=== PATIENT | female | born 1945 | race Caucasian/White ===

== ENCOUNTER → 2018-05-24 13:52 | Outpatient (CLI) | payer MEDICARE, OTHER, SELFPAY ==
--- NOTE | 2018-05-24 14:03 | CDU_ITS ---
Reason For Study: CAROTID ENDART. Rt. Velocities/BP Lt. Velocities/BP Prox CCA 79/12 cm/sec. Prox CCA 95/17 cm/sec. Mid CCA 71/13 cm/sec. Mid CCA 69/15 cm/sec. Dist CCA 58/15 cm/sec. Dist CCA 62/14 cm/sec. Prox ICA 35/12 cm/sec. Prox ICA 99/26 cm/sec. Mid ICA 46/17 cm/sec. Mid ICA 88/24 cm/sec. Dist ICA 67/21 cm/sec. Dist ICA 85/24 cm/sec. Rt. ICA/CCA = .9. Lt. ICA/CCA = 1.0. Prox ECA 81/10 cm/sec. Prox ECA 99/9 cm/sec. Rt. Vert. 20/8 cm/sec. Lt. Vert. 80/20 cm/sec. Right Extracranial There is intimal thickening but no significant atherosclerotic plaque noted in the right common carotid artery. There is intimal thickening but no significant atherosclerotic plaque noted in the right internal carotid artery. There is homogeneous, smooth atherosclerotic plaque noted in the right external carotid artery. Antegrade flow is noted in the right vertebral artery. Left Extracranial There is intimal thickening but no significant atherosclerotic plaque noted in the left common carotid artery. There is heterogeneous, irregular atherosclerotic plaque noted in the left internal carotid artery. There is homogeneous, smooth atherosclerotic plaque noted in the left external carotid artery. Antegrade flow is noted in the left vertebral artery. There is heterogeneous, irregular atherosclerotic plaque noted in the left bulb. Procedure Carotid Duplex 48616. Exam performed in department. Interpretation Summary There is <50% stenosis in the bilateral extracranial internal carotid arteries based on velocity criteria. There is antegrade flow in bilateral vertebral arteries. Ordering Physician: Mateo Hayes Referring Physician: LILLY AGUILAR Performed By: Tammy Mcintyre, ANTOINETTECS, RVT
== END ==
PROVIDERS: Family Provider Internal Medicine; PCP Internal Medicine; Referring Provider Surgery; Visit Provider Surgery
DX: I65.23 Occlusion and stenosis of bilateral carotid arteries (principal); Z98.890 Other specified postprocedural states
CPT/HCPCS: 93880

== ENCOUNTER → 2018-12-11 10:34 | Outpatient (CLI) | payer MEDICARE, OTHER, SELFPAY ==
[2018-12-11 10:25] VITALS: BMI 31.3
--- NOTE | 2018-12-11 10:36 | RAD_ITS ---
STUDY: X-RAY - RIGHT ELBOW REASON FOR EXAM: Female, 72 years old. Pain following injury. TECHNIQUE: 3 view(s) of the elbow. COMPARISON: None. FINDINGS: Normal visualized humerus, radius and ulna. Normal radiocapitellar and ulnotrochlear articulations. The soft tissue structures are unremarkable. RAD/Elbow min 3 Views IMPRESSION: Normal x-ray examination of the elbow. Electronically Signed: Marvel Johnson, at 11:12 EDT , Service support ,
== END ==
PROVIDERS: Family Provider Internal Medicine; PCP Internal Medicine; Referring Provider Physician Assistant; Visit Provider Physician Assistant
DX: S59.901A Unspecified injury of right elbow, initial encounter (principal)
CPT/HCPCS: 73080

== ENCOUNTER → 2019-10-06 10:46 | Outpatient (CLI) | payer MEDICARE, OTHER, SELFPAY ==
[2019-10-06 10:05] VITALS: BMI 31.3
[2019-10-06 12:43] LABS: T4 Free Direct 1.18 ng/dL (0.76-1.46); Thyroid Stim Hormone (TSH) 1.78 uIU/mL (0.358-3.74)
== END ==
PROVIDERS: PCP Internal Medicine; Visit Provider Internal Medicine Endocrinology, Diabetes & Metabolism
DX: E06.3 Autoimmune thyroiditis (principal)
CPT/HCPCS: 36415; 84439; 84443

== ENCOUNTER 2020-04-15 10:29 | Outpatient (RCR) | payer MEDICARE, OTHER, SELFPAY ==
[2019-10-06 10:05] VITALS: BMI 31.3
[2020-04-15] MEDS: COVID-19 VACC, MRNA(PFIZER)/PF 30 MCG/0.3 ML SYRINGE IM (13:10)
[2020-05-06] MEDS: COVID-19 VACC, MRNA(PFIZER)/PF 30 MCG/0.3 ML SYRINGE IM (12:57)
== END 2020-04-15 23:59 ==
LOC: IMMUN 10:29
PROVIDERS: PCP Internal Medicine; Visit Provider Family Medicine
DX: Z23 Encounter for immunization (principal)
CPT/HCPCS: 0001A; 0002A; 91300

== ENCOUNTER 2021-04-14 12:32 | Outpatient (CLI) | payer MEDICARE, OTHER, SELFPAY ==
--- NOTE | 2021-04-14 12:36 | CDU_ITS ---
Reason For Study: Hx carotid endart, stenosis Rt. Velocities/BP Lt. Velocities/BP Prox CCA 81.2/14.7 cm/sec. Prox CCA 84.6/18.3 cm/sec. Mid CCA 57.8/17.3 cm/sec. Mid CCA 58.8/14.6 cm/sec. Dist CCA 73.4/17.3 cm/sec. Dist CCA 65.0/15.8 cm/sec. Prox ICA 49.9/10.8 cm/sec. Prox ICA 118.5/30.9 cm/sec. Mid ICA 48.6/13.4 cm/sec. Mid ICA 107.6/21.7 cm/sec. Dist ICA 82.5/27.8 cm/sec. Dist ICA 79.7/19.5 cm/sec. Rt. ICA/CCA = 1.4. Lt. ICA/CCA = 2.0. Prox ECA 73.4/9.5 cm/sec. Prox ECA 72.3/12.2 cm/sec. Rt. Vert. 17.2/6.8 cm/sec. Lt. Vert. 82.1/23.2. cm/sec. Right Extracranial There is homogeneous, smooth atherosclerotic plaque noted in the right common carotid artery. There is heterogeneous, irregular atherosclerotic plaque noted in the right internal carotid artery. There is intimal thickening but no significant atherosclerotic plaque noted in the right external carotid artery. Bidirectional flow noted in the right vertebral artery. Left Extracranial There is homogeneous, smooth atherosclerotic plaque noted in the left common carotid artery. There is heterogeneous, irregular atherosclerotic plaque noted in the left internal carotid artery. There is intimal thickening but no significant atherosclerotic plaque noted in the left external carotid artery. Antegrade flow is noted in the left vertebral artery. There is heterogeneous, irregular atherosclerotic plaque noted in the left bulb. Procedure Carotid Duplex 37826. This is a Carotid Duplex examination using B-mode, color flow and specral Doppler. The exam was diagnostic. Exam performed in department. VL/Carotid Duplex Ultrasound Interpretation Summary Postoperative changes of the right carotid bulb and proximal internal carotid a rtery with minimal plaque noted and less than 50% stenosis Less than 50% stenosis right external carotid artery Irregular calcific plaque with shadowing at the proximal left internal carotid artery with less than 50% stenosis Less than 50% stenosis left external carotid artery Patent and antegrade vertebral arteries bilaterally with diminished flow on the right Findings are similar to the previous examination of May 24, 2018 Ordering Physician: Mateo Hayes Performed By: Luc Ortiz RVT
== END 2021-04-14 23:59 | disposition home or self-care (01) ==
LOC: CVS 12:35
PROVIDERS: PCP Internal Medicine; Referring Provider Surgery; Visit Provider Surgery
DX: I65.21 Occlusion and stenosis of right carotid artery (principal); Z98.890 Other specified postprocedural states
CPT/HCPCS: 93880

== ENCOUNTER 2021-05-20 05:20 | Day surgery (SDC) | payer MEDICARE, OTHER, SELFPAY ==
--- NOTE | 2021-05-20 05:30 | HP.PCM_ITS ---
History and Physical Date of Admission: 05/20/21 Registered Nurse Behavioral Health Required: No Is patient in pain?: No Allergies amoxicillin [Amoxicillin] Allergy (Verified 04/26/21 15:01) Rash adhesive Adverse Reaction (Verified 04/26/21 15:01) Swelling simvastatin Adverse Reaction (Verified 04/26/21 15:) Pain in joints Medications aspirin 81 mg tablet,delayed release 81 mg PO DAILY 06/03/18 [History Confirmed 04/26/21] coenzyme Q10 75 mg capsule 75 mg PO DAILY 06/03/18 [History Confirmed 04/26/21] omega-3 fatty acids 1,000 mg capsule 1,000 mg PO DAILY 06/03/18 [History Confirmed 04/26/21] cholecalciferol (vitamin D3) 25 mcg (1,000 unit) capsule 1,000 unit PO DAILY 12/11/18 [History Confirmed 04/26/21] docusate sodium 50 mg capsule 50 mg PO DAILY 12/11/18 [History Confirmed 04/26/21] guaifenesin 1,200 mg tablet, extended release 12 hr 1,200 mg PO BID 12/11/18 [History Confirmed 04/26/21] PFSH Medical History Carotid artery stenosis History of carotid artery stenosis Hyperlipidemia Surgical History History of laparoscopic cholecystectomy History of right-sided carotid endarterectomy (~10/31/10) History of right-sided carotid endarterectomy History of tonsillectomy Family History Uncle Colon cancer Mother Diabetes Hypertension High cholesterol CVA (cerebral vascular accident) Thyroid disorder Other Myocardial infarction Social History Smoking Status: Never smoker alcohol intake: never substance use type: does not use HPI HPI HPI: LESA HILLS, is a 75 F who presents to the office today for surgical follow-up of a right carotid endarterectomy. On April 14, 2021 the patient had a carotid duplex exam. Postoperative changes of the right carotid noted with some intimal thickening but less than 50% stenosis of the right internal carotid and less than 50% stenosis of the right external carotid. The left internal carotid had a mild amount of heterogenous plaque but peak systolic velocity at 118 cm second peak static flow less than 50% stenosis. There is less than 50% stenosis of the left external carotid. Bilateral vertebrals are patent and antegrade bilaterally though diminished flow was noted on the right. This examination lazaro ear to be unchanged from the previous examination of May 24, 2018 Patient is age 75. She had a right carotid endarterectomy done approximately 2010. She has had lipid problems but she saw Dr. Duane He and she was initiated on Zetia and then Dr. Stock added once weekly Crestor. Her cholesterol levels have improved to 163. She states she cannot quite remember when she had her last colonoscopy but she has a family history with an uncle with colon cancer and a niece with rectal cancer. Fortunately she is not currently had any symptoms. She otherwise feels well. She herself has not had COVID-19 but it sounds like her had quite the ordeal February 2020 and only now is recovering from the Covid and heart valve surgery. Exam Const General: cooperative, healthy appearing, comfortable and no acute distress Nutritional Appearance: overweight HENMT Head: normal to inspection Eyes General: appearance normal, both eyes and all related structures Chest Other: Increased anterior posterior diameter Resp Effort & Inspection: normal respiratory effort Auscultation: clear to auscultation bilaterally Cardio Rate: regular rate Rhythm: regular rhythm Other: Well-healed surgical incision right neck: 2+ bilateral carotid pulses. Soft 1/6 right carotid bruit. GI Palpation: soft and no hepatosplenomegaly Musc Cervical Spine: normal cervical lordosis Neuro General: patient alert and patient awake Extrem General: no calf tenderness Psych Appearance: grossly normal Assessment and Plan Assessment and Plan (1) Carotid artery stenosis: Status: Acute Qualifiers: Laterality: right Qualified Code(s): I65.21 - Occlusion and stenosis of right carotid artery Plan - Dr. Mateo Hayes MD: 75-year-old female appears to have very good longevity status post a right carotid endarterectomy performed per myself approximately 2010. She is currently getting better results of her lipid management and is very pleased and excited about her results. She also in the past ceased her tobacco use which has facilitated her management. I would recommend follow-up carotid duplex imaging at 3 years. She has no clinically significant bilateral extracranial carotid artery occlusive disease at this time. Conservative follow-up particularly however regarding her [place] left carotid that has not been treated would be pertinent. The patient inquires as to whether she is due for screening colonoscopy. She is aware of the technique, benefit, risk, alternatives. We will try to investigate when she had a previous one and then make recommendations as appropriate. She is aware of the technique, benefit, risk, alternatives and we will proceed as noted. I appreciate the ongoing opportunity of assisting with her surgical care Copy: Dr. Fide Hayes M.D., F.A.C.S. Patient presents for screening colonoscopy today. She is aware of the technique, benefit, risk and alternatives. We will proceed as noted. Mateo Hayes M.D., F.A.C.S.
[2021-05-20 06:04] VITALS: BP 158/80; PULSE 77; RESP 16; TEMP 36.8; O2SAT 99; BMI 31.8
--- NOTE | 2021-05-20 06:30 | COLBX_PTH ---
PATIENT: LESA HILLS LOC: EN U#:[id number] AGE/SX: 75/F ROOM: RE05/20/[address]: Dr. Mateo Hayes MD : 1945 BED: DIS: 05/20/2021 SPEC #: [id number] RECD: 05/20/21 13:27 STATUS: GARCÍA SERENA #: [id number] CECELIA: 05/20/21 06:[address]: Mateo Hayes DEPT: SURGICAL PATHOLOGY RECD BY: Ayala Singh ENTERED: 05/23/21 09:36 SP TYPE: COLON BX OT DR: Dr. Fide Stock MD Tissues: A - Transverse colon B - Sigmoid colon biopsy Procedures: Surgery Specimen Level IV HEADER OPERATION: Colonoscopy (MAC) PRE-OP DIAGNOSIS: Screening colonoscopy TISSUE SUBMITTED: A ? Mid transverse colon biopsy, B ? Proximal sigmoid polyp biopsy MICROSCOPIC DIAGNOSIS A. Mid transverse colon, biopsy: Hyperplastic polyp. B. Proximal sigmoid colon polyp, biopsy: Hyperplastic polyp. AM:gil 05/24/2021 MICROSCOPIC DESCRIPTION Slides are reviewed. GROSS DESCRIPTION A - Received in fixative is one container labeled with the patient's name and designated mid transverse colon biopsy. The specimen consists of multiple irregular fragments of light hess soft tissue that in aggregate measure 1.5 x 1 x 0.1 cm. The specimen is totally submitted in one cassette. B - Received in fixative is one container labeled with the patient's name and designated sigmoid polyp biopsy. The specimen consists of two irregular fragments of light hess soft tissue that in aggregate measure 0.6 x 0.5 x 0.1 cm. The specimen is totally submitted in one cassette. / AM:gil 05/23/2021 TC:5 CPT: 46325 x2
[2021-05-20 07:15] VITALS: BP 107/62; BP 158/80; PULSE 61; RESP 16; TEMP 36.1; O2SAT 96
--- NOTE | 2021-05-20 07:16 | OP.COLON_ITS ---
Patient Name: Katie Dugan Procedure Date: 05/20/2021 6:24 AM Date of : 1945 Age: 75 Procedure: Colonoscopy Indications: Screening for colorectal malignant neoplasm Providers: Mateo Hayes MD Referring MD: Fide Stock Medicines: See the Anesthesia note for documentation of the administered medications Patient Profile: Last Colonoscopy: date unknown. Complications: No immediate complications. Procedure: Pre-Anesthesia Assessment: - Prior to the procedure, a History and Physical was performed, and patient medications and allergies were reviewed. The patient's tolerance of previous anesthesia was also reviewed. The risks and benefits of the procedure and the sedation options and risks were discussed with the patient. All questions were answered, and informed consent was obtained. Prior Anticoagulants: The patient has taken no previous anticoagulant or antiplatelet agents. ASA Grade Assessment: II - A patient with mild systemic disease. After reviewing the risks and benefits, the patient was deemed in satisfactory condition to undergo the procedure. After I obtained informed consent, the scope was passed under direct vision. Throughout the procedure, the patient's blood pressure, pulse, and oxygen saturations were monitored continuously. The Colonoscope was introduced through the anus and advanced to the cecum, identified by appendiceal orifice and ileocecal valve. The colonoscopy was unusually difficult due to a redundant colon. Successful completion of the procedure was aided by changing the patient to a supine position and applying abdominal pressure. The patient tolerated the procedure well. The quality of the bowel preparation was fair. The ileocecal valve and the appendiceal orifice were photographed. Scope In: 6:35:34 AM Scope Withdrawal Time 0 hours 17 minutes 22 seconds Scope Out: 7:10:48 AM Total Procedure Duration Time 0 hours 35 minutes 14 seconds Findings: Hemorrhoids were found on perianal exam. A 7 mm polyp was found in the mid transverse colon. The polyp was sessile. The polyp was removed with a cold snare. Resection and retrieval were complete. To prevent bleeding post-intervention, one hemostatic clip was successfully placed. There was no bleeding at the end of the procedure. A 5 mm polyp was found in the proximal sigmoid colon. The polyp was sessile. The polyp was removed with a cold biopsy forceps. Resection and retrieval were complete. Multiple diverticula were found in the sigmoid colon and descending colon. Impression: - Preparation of the colon was fair. - Hemorrhoids found on perianal exam. - One 7 mm polyp in the mid transverse colon, removed with a cold snare. Resected and retrieved. Clip was placed. - One 5 mm polyp in the proximal sigmoid colon, removed with a cold biopsy forceps. Resected and retrieved. - Diverticulosis in the sigmoid colon and in the descending colon. Ileocecal valve lipoma Recommendation: - Discharge patient to home. - Resume previous diet. - Continue present medications. - Repeat colonoscopy in 5 years for surveillance. - Telephone my office for pathology results in 1 week. Procedure Code(s): --- Professional --- 91307, Colonoscopy, flexible; with removal of tumor(s), polyp(s), or other lesion(s) by snare technique 66195, 59, Colonoscopy, flexible; with biopsy, single or multiple Diagnosis Code(s): --- Professional --- Z12.11, Encounter for screening for malignant neoplasm of colon K64.9, Unspecified hemorrhoids D12.3, Benign neoplasm of transverse colon (hepatic flexure or splenic flexure) D12.5, Benign neoplasm of sigmoid colon K57.30, Diverticulosis of large intestine without perforation or abscess without bleeding CPT copyright 2017 [employer]. All rights reserved. The codes documented in this report are preliminary and upon blending tank tender helper review may be revised to meet current compliance requirements. Mateo Hayes MD 05/20/2021 7:15:29 AM This report has been signed electronically. Number of Addenda: 0 Note Initiated On: 05/20/2021 6:24 AM
--- NOTE | 2021-05-20 07:16 | OP.CCLET_ITS ---
05/20/2021 Fide Stock [id number] [place] [address] Re : Colonoscopy procedure for Katie Dugan Dear Dr. Stock This procedure was performed on Thursday, May 20, 2021. My impressions and recommendations are as follows: Impressions : - Preparation of the colon was fair. - Hemorrhoids found on perianal exam. - One 7 mm polyp in the mid transverse colon, removed with a cold snare. Resected and retrieved. Clip was placed. - One 5 mm polyp in the proximal sigmoid colon, removed with a cold biopsy forceps. Resected and retrieved. - Diverticulosis in the sigmoid colon and in the descending colon. Ileocecal valve lipoma Recommendations : - Discharge patient to home. - Resume previous diet. - Continue present medications. - Repeat colonoscopy in 5 years for surveillance. - Telephone my office for pathology results in 1 week. My findings are described in the full procedure note, which is enclosed. If I can be of further assistance, please feel free to contact me at Doctor phone number(s): Work: . Sincerely, Mateo Hayes MD 05/20/2021 7:15:29 AM This report has been signed electronically.
[2021-05-20 07:20] VITALS: BP 109/54; BP 158/80; PULSE 59; RESP 15; O2SAT 95
[2021-05-20 07:25] VITALS: BP 120/56; BP 158/80; PULSE 61; RESP 16; O2SAT 96
[2021-05-20 07:30] VITALS: BP 130/64; BP 158/80; PULSE 60; RESP 16; TEMP 36; O2SAT 98
[2021-05-20 07:48] VITALS: BP 158/80
== END 2021-05-20 23:59 | disposition home or self-care (01) ==
LOC: EN 05:20 → AC 05:20
PROVIDERS: PCP Internal Medicine; Referring Provider Internal Medicine; Visit Provider Surgery
PROC: 0DJD8ZZ Inspection of Lower Intestinal Tract, Via Natural or Artificial Opening Endoscopic (ICD-10-PCS; CPT 45378; principal; 2021-05-20 06:25)
DX: Z12.11 Encounter for screening for malignant neoplasm of colon (principal); K63.5 Polyp of colon; K64.8 Other hemorrhoids; K57.30 Diverticulosis of large intestine without perforation or abscess without bleeding; E78.5 Hyperlipidemia, unspecified; I65.21 Occlusion and stenosis of right carotid artery; Z79.899 Other long term (current) drug therapy; Z87.891 Personal history of nicotine dependence; Z80.0 Family history of malignant neoplasm of digestive organs; Z79.82 Long term (current) use of aspirin
CPT/HCPCS: 45385; 45380; 88305; J7120; J2405

== ENCOUNTER → 2021-08-19 | Outpatient (CLI) | payer MEDICARE, OTHER, SELFPAY ==
[2021-08-19 16:33] LABS: Absolute Lymphocyte Count 2.42 X10^3/uL (0.83-4.51); Absolute Neutrophil Count 3.5 X10^3/uL (2.0-7.7); Basophil# 0.07 X10^3/uL; Basophil% 1.1 % (0-1); Eosinophil# 0.18 X10^3/uL; Eosinophils% 2.7 % (0-5); Hematocrit 41.3 % (37-47); Hemoglobin 13.8 g/dL (12.0-15.0); Lymphocyte # 2.42 X10^3/ul (0.83-4.51); Lymphocyte % 36.7 % (19-41); Mean Corp Hgb Conc 33.4 g/dL (32-36); Mean Corpuscular Hgb 29.7 pg (27.0-32.0); Mean Corpuscular Volume 88.8 fL (81-99); Mean Platelet Vol. 10.1 fl (6.2-12.0); Monocyte# 0.45 X10^3/uL; Monocyte% 6.8 % (0-10); NRBC Flagged by Analyzer 0 % (0-5); Neutrophil # 3.46 X10^3/uL (2.7-7.7); Neutrophil % 52.5 % (47-70); Platelet Count 226 K/mm3 (150-450); RBC Distribution Width CV 12.2 % (11.6-14.6); RBC Distribution Width SD 39.3 fl (35.1-43.9); Red Blood Count 4.65 M/mm3 (4.2-5.4); White Blood Count 6.6 K/mm3 (4.4-11.0)
[2021-08-19 16:49] LABS: ALB/GLOB Ratio 1.2 RATIO (0.9-2.4); AST(SGOT) 23 U/L (15-37); Alanine Aminotransfer ALT/SGPT 33 U/L (13-56); Albumin, Serum 4.1 g/dL (3.2-5.0); Alkaline Phosphatase 68 U/L (45-117); Anion Gap 3 (5-15); BUN 17 mg/dL (7-18); BUN/Creat Ratio 20.9 RATIO (10-20); Calcium,Total 9.8 mg/dL (8.5-10.1); Chloride 107 mmol/L (98-107); Creatinine, Serum 0.81 mg/dL (0.55-1.02); EST Glomerular Filtration Rate 73 mL/min (>60); Est Glom Filt Rate - Afr Amer 88 mL/min (>60); Globulin 3.4 g/dL (2.2-4.2); Glucose 95 mg/dL (74-106); Potassium 4.1 mmol/L (3.5-5.1); Protein, Total 7.5 g/dL (6.4-8.2); Sodium Level 140 mmol/L (136-145)
== END | disposition home or self-care (01) ==
LOC: BIMLAB 15:45
PROVIDERS: PCP Internal Medicine; Referring Provider Internal Medicine; Visit Provider Internal Medicine
DX: E78.2 Mixed hyperlipidemia (principal)
CPT/HCPCS: 36415; 80053; 85025

== ENCOUNTER → 2021-09-06 | Outpatient (CLI) | payer MEDICARE, OTHER, SELFPAY ==
--- NOTE | 2021-09-06 13:17 | BD_ITS ---
STUDY: DUAL ENERGY X-RAY ABSORPTIOMETRY / DXA REASON FOR EXAM: Female, 75 years old. Post menopausal TECHNIQUE: Bone Mineral Density (BMD) measurements of lumbar spine and bilateral hips were obtained. COMPARISON: None. FINDINGS: Lumbar Spine (L1-L4): g/cm2 (0.862) / T-score (-1.4) / Z-score (1.0) Findings are suggestive of osteopenia with a low fracture risk. Left Femur Total: g/cm2 (0.906) / T-score (-0.3) / Z-score (1.6) Left Femoral Neck: g/cm2 (0.676) / T-score (-1.6) / Z-score (0.6) Right Femur Total: g/cm2 (0.934) / T-score (-0.1) / Z-score (1.8) Right Femoral Neck: g/cm2 (0.758) / T-score (-0.8) / Z-score (1.3) BD/Dexa Bone Density Study IMPRESSION: The patient is considered osteopenic as outlined below according to World [employer] Organization (WHO) criteria with a moderate fracture risk. Reference Information: The T-score is the number of standard deviations above or below the standard which is normal for young adults at their peak bone mineral density. The World Health Organization (WHO) interprets the T-scores as follows: Above -1 Normal bone density Between -1 and -2.5 Osteopenia Equal to / or below -2.5 Osteoporosis As a practical clinical guideline, osteopenia may be graded as follows: Mild -1 through -1.5 Moderate -1.6 through -2.0 Severe -2.1 through -2.4 The Z-score is the number of standard deviations above or below age-matched controls. A Z-score of less than -1.5 would be considered abnormal. References: 1. NIH Osteoporosis and Related Bone Diseases www osteo.org 2. International Society for Clinical Densitometry www iscd.org 3. National Osteoporosis Foundation www nof.org Electronically Signed: Marvel Johnson MD at 9:41 EDT ,
== END | disposition home or self-care (01) ==
LOC: OPBD 13:12
PROVIDERS: PCP Internal Medicine; Referring Provider Internal Medicine; Visit Provider Internal Medicine
DX: Z78.0 Asymptomatic menopausal state (principal)
CPT/HCPCS: 77080

== ENCOUNTER → 2022-03-09 | Outpatient (CLI) | payer MEDICARE, OTHER, SELFPAY ==
[2022-03-09 10:59] LABS: Bacteria 0 SEEN /hpf (None Seen); Mucous, Urine 0 SEEN /hpf (<or=2+); Red Blood Cells-Urine 0 SEEN /hpf (0-5); Squamous Epithelial Cells - UA 0 SEEN /hpf (5-10); White Blood Cells 0 SEEN /hpf (0-5)
[2022-03-09 12:23] LABS: Absolute Lymphocyte Count 2.03 X10^3/uL (0.83-4.51); Absolute Neutrophil Count 3.5 X10^3/uL (2.0-7.7); Basophil# 0.07 X10^3/uL; Basophil% 1.2 % (0-1); Hemoglobin 14.4 g/dL (12.0-15.0); Lymphocyte # 2.03 X10^3/ul (0.83-4.51); Lymphocyte % 33.7 % (19-41); Mean Corp Hgb Conc 34.3 g/dL (32-36); Mean Corpuscular Hgb 29.6 pg (27.0-32.0); Mean Corpuscular Volume 86.2 fL (81-99); Monocyte# 0.41 X10^3/uL; Monocyte% 6.8 % (0-10); NRBC Flagged by Analyzer 0 % (0-5); Neutrophil % 58.1 % (47-70); Platelet Count 244 K/mm3 (150-450); RBC Distribution Width CV 12.2 % (11.6-14.6); RBC Distribution Width SD 38.4 fl (35.1-43.9); Red Blood Count 4.87 M/mm3 (4.2-5.4)
[2022-03-09 12:31] LABS: Color, Urine Yellow (Yellow); Glucose, Dipstick Normal (Normal); Ketone-Dipstick Negative (Negative); Leukocyte Esterase-Dipstick Negative /ul (Negative); Nitrite-Dipstick Negative (Negative); Occult Blood-Urine Negative /ul (Negative); Protein-Dipstick Negative (Negative); Specific Gravity, Urine 1.005 (1.002-1.030); Urine Bilirubin Dipstick Negative (Negative); Urine Clarity Clear (Clear); Urine Urobilinogen Normal (Normal)
[2022-03-09 13:34] LABS: ALB/GLOB Ratio 1.1 RATIO (0.9-2.4); AST(SGOT) 27 U/L (15-37); Alanine Aminotransfer ALT/SGPT 44 U/L (13-56); Alkaline Phosphatase 63 U/L (45-117); Anion Gap 9 (5-15); BUN 15 mg/dL (7-18); Calcium,Total 9.7 mg/dL (8.5-10.1); Chloride 107 mmol/L (98-107); Creatinine, Serum 0.83 mg/dL (0.55-1.02); EST Glomerular Filtration Rate 71 mL/min (>60); Est Glom Filt Rate - Afr Amer 85 mL/min (>60); Globulin 3.8 g/dL (2.2-4.2); Glucose 112 mg/dL (74-106); Protein, Total 7.8 g/dL (6.4-8.2); Sodium Level 141 mmol/L (136-145)
== END | disposition home or self-care (01) ==
LOC: BIMLAB 10:58
PROVIDERS: PCP Internal Medicine; Referring Provider Physician Assistant; Visit Provider Physician Assistant
DX: R39.9 Unspecified symptoms and signs involving the genitourinary system (principal); R10.31 Right lower quadrant pain
CPT/HCPCS: 36415; 80053; 81001; 85025; 87086; 87088

== ENCOUNTER → 2022-03-15 | Outpatient (CLI) | payer MEDICARE, OTHER, SELFPAY ==
--- NOTE | 2022-03-15 13:41 | CT_ITS ---
STUDY: CT ABDOMEN AND PELVIS WITH CONTRAST REASON FOR EXAM: Female, 76 years old. 3 week history of right-sided abdominal pain and flank pain. RADIATION DOSAGE (If Supplied By Facility): CTDIvol = ( 15.90 ) mGy, DLP = ( 997.07 ) mGycm TECHNIQUE: Transaxial images were obtained from the dome of the diaphragm to the symphysis pubis without oral contrast. IV 100mL Isovue-300 was administered. Sagittal and coronal images were reconstructed. Individualized dose optimization techniques were used for this CT. COMPARISON: None. FINDINGS: The visualized lung bases are unremarkable. The visualized portions of the heart are within normal limits. Mild degree of central intrahepatic biliary dilatation most likely secondary to the postcholecystectomy state. There are surgical clips in the gallbladder fossa consistent with a prior cholecystectomy. There is no dilatation of the common bile duct measuring 11.3 mm. No calculus is seen within it. Normal spleen. Normal pancreas. Normal bilateral adrenal glands. There is a 1.3 cm cyst in the lateral aspect of the right kidney. Normal left kidney. There is a small hiatal hernia. Normal small intestine. Normal colon. The appendix is visualized and appears normal. There is diffuse atherosclerotic calcification of the abdominal aorta, without a demonstrated aneurysm. Normal inferior vena cava. Normal retroperitoneum. Normal urinary bladder. There is thickening of the endometrium measuring 1.1 cm. This is abnormal for the post menopausal state. Normal abdominal wall. Normal osseous structures. CT/Abdomen/Pelvis W IV Cont ONLY IMPRESSION: Status post cholecystectomy. Mildly dilated intrahepatic biliary ducts and common bile duct. Electronically Signed: Marvel Johnson MD at 15:14 EST ,
== END | disposition home or self-care (01) ==
PROVIDERS: PCP Internal Medicine; Referring Provider Physician Assistant; Visit Provider Physician Assistant
DX: R10.31 Right lower quadrant pain (principal); Z90.49 Acquired absence of other specified parts of digestive tract
CPT/HCPCS: 74177; Q9967

== ENCOUNTER → 2022-08-23 | Outpatient (CLI) | payer MEDICARE, OTHER, SELFPAY ==
[2022-08-23 09:21] LABS: Bacteria 0 SEEN /hpf (None Seen); Mucous, Urine 0 SEEN /hpf (<or=2+); Red Blood Cells-Urine 0 SEEN /hpf (0-5)
[2022-08-23 12:24] LABS: Absolute Neutrophil Count 2.4 X10^3/uL (2.0-7.7); Basophil# 0.08 X10^3/uL; Basophil% 1.5 % (0-1); Eosinophil# 0.09 X10^3/uL; Eosinophils% 1.7 % (0-5); Hemoglobin 13.8 g/dL (12.0-15.0); Lymphocyte % 42.3 % (19-41); Mean Corp Hgb Conc 33.7 g/dL (32-36); Mean Corpuscular Hgb 30.1 pg (27.0-32.0); Mean Corpuscular Volume 89.3 fL (81-99); Mean Platelet Vol. 10.3 fl (6.2-12.0); Monocyte# 0.47 X10^3/uL; NRBC Flagged by Analyzer 0 % (0-5); Neutrophil # 2.35 X10^3/uL (2.7-7.7); Neutrophil % 45.3 % (47-70); Platelet Count 230 K/mm3 (150-450); RBC Distribution Width CV 12.5 % (11.6-14.6); RBC Distribution Width SD 40.9 fl (35.1-43.9); Red Blood Count 4.59 M/mm3 (4.2-5.4); White Blood Count 5.2 K/mm3 (4.4-11.0)
[2022-08-23 12:34] LABS: Color, Urine Yellow (Yellow); Glucose, Dipstick Normal (Normal); Ketone-Dipstick Negative (Negative); Leukocyte Esterase-Dipstick 100 /ul (Negative); Nitrite-Dipstick Negative (Negative); Occult Blood-Urine Negative /ul (Negative); Protein-Dipstick Negative (Negative); Urine Bilirubin Dipstick Negative (Negative); Urine Clarity Sl. Cloudy (Clear); Urine Urobilinogen Normal (Normal)
[2022-08-23 12:36] LABS: AST(SGOT) 28 U/L (15-37); Alanine Aminotransfer ALT/SGPT 35 U/L (13-56); Albumin, Serum 3.9 g/dL (3.2-5.0); Alkaline Phosphatase 68 U/L (45-117); Anion Gap 5 (5-15); BUN 12 mg/dL (7-18); BUN/Creat Ratio 13.7 RATIO (10-20); Calcium,Total 9.7 mg/dL (8.5-10.1); Chloride 104 mmol/L (98-107); Cholesterol 183 mg/dL (200); Creatinine, Serum 0.88 mg/dL (0.55-1.02); EST Glomerular Filtration Rate 66 mL/min (>60); Est Glom Filt Rate - Afr Amer 80 mL/min (>60); Globulin 3.8 g/dL (2.2-4.2); Glucose 95 mg/dL (74-106); High Density Lipoprotein 58 mg/dL; Potassium 3.7 mmol/L (3.5-5.1); Protein, Total 7.7 g/dL (6.4-8.2); Sodium Level 137 mmol/L (136-145); Triglycerides 104 mg/dL; Very Low Density Lipoprotein 21 mg/dL (5-40)
[2022-08-23 12:40] LABS: Vitamin D,25 Hydroxy 36.4 ng/mL
[2022-08-23 12:52] LABS: Squamous Epithelial Cells - UA 0-5 SEEN /hpf (5-10); White Blood Cells 10-25 SEEN /hpf (0-5)
== END | disposition home or self-care (01) ==
PROVIDERS: PCP Internal Medicine; Visit Provider Internal Medicine
DX: R35.0 Frequency of micturition (principal); N32.81 Overactive bladder; M85.80 Other specified disorders of bone density and structure, unspecified site; E78.2 Mixed hyperlipidemia
CPT/HCPCS: 36415; 80053; 80061; 81001; 82306; 85025; 87077; 87086; 87088; 87186

== ENCOUNTER 2022-09-18 14:45 | Outpatient (CLI) | payer MEDICARE, OTHER, SELFPAY ==
[2022-09-18 14:47] LABS: Bacteria 0 SEEN /hpf (None Seen); Mucous, Urine 0 SEEN /hpf (<or=2+); Squamous Epithelial Cells - UA 0 SEEN /hpf (5-10); White Blood Cells 0 SEEN /hpf (0-5)
[2022-09-18 16:37] LABS: Color, Urine Yellow (Yellow); Glucose, Dipstick Normal (Normal); Ketone-Dipstick Negative (Negative); Leukocyte Esterase-Dipstick Negative /ul (Negative); Nitrite-Dipstick Negative (Negative); Occult Blood-Urine Negative /ul (Negative); Protein-Dipstick Negative (Negative); Urine Bilirubin Dipstick Negative (Negative); Urine Clarity Sl. Cloudy (Clear); Urine Urobilinogen Normal (Normal)
[2022-09-18 17:07] LABS: Red Blood Cells-Urine 0-5 SEEN /hpf (0-5)
== END 2022-09-18 23:59 | disposition home or self-care (01) ==
LOC: LABSPEC 14:46
PROVIDERS: PCP Internal Medicine; Referring Provider Internal Medicine; Visit Provider Internal Medicine
DX: R35.0 Frequency of micturition (principal)
CPT/HCPCS: 81001; 87086; 87088

== ENCOUNTER 2022-10-20 05:39 | Day surgery (SDC) | payer MEDICARE, OTHER, SELFPAY ==
--- NOTE | 2022-10-12 10:45 | EKG12_ITS ---
Test Reason : PRE OP Blood Pressure : / mmHG Vent. Rate : 059 BPM Atrial Rate : 059 BPM P-R Int : 162 ms QRS Dur : 082 ms QT Int : 394 ms P-R-T Axes : 055 011 028 degrees QTc Int : 390 ms Sinus bradycardia Otherwise normal ECG Confirmed by PEDRO JOSE, JONATHON ([id number]), order editor RODNEY BUSTILLO ([id number]) on 10/30/2022 2:08:27 PM Referred By: Susanne Black Confirmed By:LUCITA VASQUEZ MD
--- NOTE | 2022-10-20 | EMB_PTH ---
PATIENT: LESA HILLS [place] [facility] [place][id number] AGE/SX: 76/F ROOM: RE10/20/[address]: Dr. Susanne Black, MDDOB: 1945 BED: DIS: 10/20/2022 SPEC #: [id number] RECD: 10/20/22 12:53 STATUS: GARCÍA SERENA #: [id number] CECELIA: 10/20/22 00:[address]: Susanne Black DEPT: SURGICAL PATHOLOGY RECD BY: Donn Lyles ENTERED: 10/20/22 12:53 SP TYPE: ENDOM BX/C LUCY DR: Dr. Maryjane Wood MD Tissues: Endometrium, NOS Procedures: Surgery Specimen Level IV HEADER OPERATION: Hysteroscopy, D & C Symphion, polypectomy PRE-OP DIAGNOSIS: Thickened endometrium, endometrial polyps TISSUE SUBMITTED: Endometrial curettings and polyp MICROSCOPIC DIAGNOSIS Endometrial curettings and polyp, polypectomy: Consistent with fragments of benign endometrial polyp with simple cystic atrophy and focal simple cystic hyperplasia without atypia. ALE:gil 10/23/2022 MICROSCOPIC DESCRIPTION Slides are reviewed. GROSS DESCRIPTION Received in fixative is one container labeled with the patient's name and designated endometrial curettings and polyp. The specimen consists of multiple irregular fragments of hess, indurated tissue that in aggregate measure 5.0 x 3.0 x 0.6 cm. The specimen is totally submitted in two cassettes. / Vitaliy 10/20/2022 TC:3 CPT: 03772
[2022-10-20 06:14] VITALS: BP 146/82; PULSE 58; RESP 16; TEMP 36.7; O2SAT 99; BMI 29.0
[2022-10-20] MEDS: Lactated Ringers 1,000 ML 15 ML IV (06:19)
--- NOTE | 2022-10-20 07:18 | PCM.HP.BLA ---
History and Physical Date of Admission: 10/20/22 Pre-Op History and Physical ? HPI: The patient is a 76 year old female with incidental endometrial thickening found on CT scan- ultrasound today shows cystic appearing endometrium measuring 16.6mm. Endosee and EMB performed in in office which showed to large endometrial polyps. ? presenting for pre-operative visit. She is scheduled for Hysteroscopy D&C and polypectomy with symphion, for Thickend endometrium and Endometrial polyp on TBD. Procedure discussed along with risks, benefits and complications. Other alternatives discussed for management. Consent form signed? Yes. ? ? PAST MEDICAL HISTORY PAST MEDICAL HISTORY Diagnosis Date ? Carotid occlusion, right 09/26/2010 ? s/p CEA by Dr. Prema Hayes ? Mixed hyperlipidemia 10/27/2004 ? Neck and shoulder pain 11/29/2015 ? Since right CEA; intermittent with some numbness ? Personal history of colonic polyps 10/27/2004 ? Colonoscopy - 24 March 2004 ? Personal history of tobacco use, presenting hazards to health 01/25/2005 ? Plantar fasciitis, right 09/21/2017 ? Pure hypercholesterolemia ? ? Snoring ? ? ? PAST SURGICAL HISTORY PAST SURGICAL HISTORY Procedure Laterality Date ? ADENOIDECTOMY PRIMARY <AGE 11 ? ? ? Adenoidectomy ? ARTL CATHJ/CANNULJ MNTR/TRANSFUSION SPX PRQ ? 10-31-10 ? CHOLECYSTECTOMY ? 1996 ? COLONOSCOPY FLX DX W/COLLJ SPEC WHEN PFRMD ? 03/24/2004 ? Colonoscopy w/ bx. ? COLONOSCOPY FLX DX W/COLLJ SPEC WHEN PFRMD ? 11-17-14 ? NEUROPLASTY &/TRANSPOS MEDIAN NRV CARPAL TUNNE ? 12/13/2010 ? Carpal tunnel decomp right ? SKIN BX, 1 LESION ? 01/22/14 ? Punch bx right areolar skin ? TEAEC W/PATCH GRF CAROTID VERTB SUBCLAV NECK INC ? 10-31-10 ? RIGHT ? TONSILLECTOMY PRIMARY/SECONDARY <AGE 11 ? ? ? Tonsillectomy ? ? ? CURRENT MEDICATIONS Current Outpatient Medications Medication Sig Dispense Refill ? oxybutynin XL (DITROPAN XL) 5 mg 24 hr tablet ? miSOPROStol (CYTOTEC) 200 mcg tablet Take two tablets PO night before procedure and two tablets morning of procedure 4 tablet 0 ? ezetimibe (ZETIA) 10 mg tablet Take 1 tablet by mouth once daily. 90 tablet 1 ? rosuvastatin (CRESTOR) 5 mg tablet Take 1 tablet by mouth daily at bedtime. As directed 30 tablet 0 ? vitamin B complex (B COMPLEX ORAL) Take 1 capsule by mouth once daily. ? ? ? Cholecalciferol, Vitamin D3, (VITAMIN D) 1,000 unit cap Take 1,000 Units by mouth once daily. ? ? ? ubidecarenone/vitamin E mixed (COQ10 SG 100 ORAL) Take by mouth. ? ? ? GUAIFENESIN SR ORAL Take by mouth as needed. ? ? ? TURMERIC ORAL Take 1,950 mg by mouth three times daily. Turmeric Curcumin with bioperine ? docusate sodium (STOOL SOFTENER) 100 mg ORAL capsule Take 1 capsule by mouth twice daily. ? 0 ? ASPIRIN 81 MG TAB Take one(1) tablet daily. ? 0 ? No current facility-administered medications for this visit. ? ? ALLERGIES: Adhesive, Amoxicillin, Crestor [Rosuvastatin], and Simvastatin ? PERSONAL HISTORY: SOCIAL HISTORY Social History ? Tobacco Use ? Smoking status: Former ? ? Years: 30 ? ? Types: Cigarettes ? ? Quit date: 02/13/2012 ? ? Years since quittin.6 ? Smokeless tobacco: Never ? Tobacco comments: ? ? 02/2012 started e-cigarette Substance Use Topics ? Alcohol use: No ? Drug use: No ? FAMILY HISTORY: FAMILY HISTORY FAMILY HISTORY Problem Relation Age of Onset ? Diabetes Mother ? ? Hypertension Mother ? ? Lipids Mother ? ? Heart Mother ? ? Stroke Sister ? ? Hypertension Sister ? ? Diabetes Sister ? ? Lipids Sister ? ? other (Kidney Stones) Sister ? ? ? REVIEW OF SYMPTOMS: negative except as noted above PHYSICAL EXAMINATION: ? VITALS: Blood pressure 118/70, weight 185 lb (83.9 kg). ? GENERAL: The patient is well nourished, well hydrated in no acute distress. , The patient is oriented to time, place, and person. NECK: full range of motion GENITALIA: Normal external genitalia, Urethral meatus normal, Bladder nontender, normal vagina and normal vaginal tone, normal cervix, and perineum WNL WET PREP: no done ? IMPRESSION: 76yo with Thickened endometrium, Endometrial polyps on hysteroscopy performed in office. ? PLAN: Hysteroscopy, D&C, Polypectomy with symphion ? Pt has been counseled on risks/benefits and alternatives of surgery including but not limited to anesthesia, bleeding, infection, uterine perforation with subsequent injury to pelvic structures including bowel, bladder, ureters and vessels. Pt wishes to proceed with surgery at this time. ? I have reviewed and updated past medical and surgical history, medications and allergies Susanne Lazcano MD
--- NOTE | 2022-10-20 07:22 | DCINST_ITS ---
Discharge Instructions Diet Discharge Diet: No restrictions Activity May resume sexual activity in: 1 week Dressing / Incision Call your doctor if you observe: Fever of 101 or Higher, Inability to urinate, Using more than 1 pad per hour and Uncontrolled pain Follow Up Care Please Follow Up With: Susanne Black MD When: 1-2 weeks post OP if you need an appointment please call [phone] Test Results: Test results from this visit will be discussed in further detail at your follow- up appointment, if applicable. Discharge Plan Admission Attending Provider: Susanne Black Primary Care Provider: Maryjane Wood Discharge Orders/Prescriptions Prescriptions: No Action aspirin [Adult Low Dose Aspirin] 81 mg tablet,delayed release (DR/EC) 81 mg PO DAILY Stool Softener 50 mg capsule 50 mg PO DAILY guaifenesin [Mucinex] 1,200 mg tablet extended release 12hr 1,200 mg PO BID PRN (Reason: Congestion) coenzyme Q10 [Co Q-10] 100 mg capsule 100 mg PO DAILY turmeric root extract 1,053 mg tablet 1,076 mg PO DAILY FIBER WELL 2 tab PO DAILY Rx Instructions: 2 GUMMIES DAILY rosuvastatin [Crestor] 5 mg tablet 5 mg PO WE magnesium oxide 500 mg capsule 500 mg PO DAILY oxybutynin chloride 5 mg tablet extended release 24hr 5 mg PO DAILY Qty: 90 1RF vitamin B complex Capsule 1 cap PO DAILY calcium carbonate [Calcium 600] 600 mg calcium (1,500 mg) tablet 600 mg PO BID Qty: 90 3RF cholecalciferol (vitamin D3) 25 mcg (1,000 unit) capsule 1,000 unit PO BID ezetimibe [Zetia] 10 mg tablet 10 mg PO DAILY Qty: 90 2RF Referrals / Follow Up: Maryjane Wood MD [Primary Care Provider] - Disposition Disposition (needs filled in before D/C Order can be placed): Home, Self Care
--- NOTE | 2022-10-20 07:37 | OP.PCM_ITS ---
Report of Operation Date of Procedure: 10/20/22 Pre-Operative Diagnosis: Thickened endometrium, endometrial polyp Post-Operative Diagnosis: same Surgery/Procedure Performed:: hysteroscopy, D&C, polypectomy Description of Surgical Findings:: two endometrial polyps arising by left tubal ostia Surgeon: Susanne Black Type of Anesthesia: MAC Specimen's removed: endometrial curettings and polyps Drains: none Estimated Blood Loss (mL): 0 Fluids Replaced: 500 Description of Procedure: Informed consent was obtained the patient was taken the operating room she was placed in supine position. She was given anesthesia. She was then placed in the [facility] where she was prepped and draped in the normal sterile fashion. bladder drained 300cc urine. At this time the weighted speculum was placed in the posterior fornix of vagina. Single-tooth tenaculum was used to gently grasp the anterior lip the cervix. At this time the uterine cavity was sounded to approximately 9 cm. Gentle dilatation was performed once adequate dilatation of the cervix was achieved the hysteroscope using normal saline as a distention medium was placed. Tubal ostia visualized. two endometrial polyps arising near left tubal ostia noted otherwise cavity appeard atrophic. Symphion resecting device used to obtain endometrial curettings and to perform polypectomy. Tissue will be sent to pathology for evaluation. Tenaculum removed. Good hemostasis. Instrument, lap count correct x 2. Vaginal Sweep was negative. fluid deficiet 600 Grafts/Implants Used: none Procedure Start Time: 07:28 Procedure Stop Time: 07:36 Admit VTE Documentation VTE Present on Admission: Yes VTE Mechan Device Prophylaxis: SCD's VTE Pharm Prophylaxis ordered?: No Reason prophylaxis not ordered:: Procedure Not Indicated
[2022-10-20 07:47] VITALS: BP 108/49; BP 146/82; PULSE 53; RESP 16; TEMP 36.7; O2SAT 92
[2022-10-20 07:50] VITALS: BP 107/51; BP 146/82; PULSE 53; RESP 16; O2SAT 95
[2022-10-20 07:55] VITALS: BP 120/55; BP 146/82; PULSE 52; RESP 12; O2SAT 93
[2022-10-20 08:00] VITALS: BP 127/54; BP 146/82; PULSE 50; RESP 12; TEMP 36.4; O2SAT 93
[2022-10-20 08:26] VITALS: BP 146/82
== END 2022-10-20 08:34 | disposition home or self-care (01) ==
LOC: SDC 05:42 → AC 05:42
PROVIDERS: PCP Internal Medicine; Referring Provider Obstetrics & Gynecology; Visit Provider Obstetrics & Gynecology
PROC: 0UB98ZZ Excision of Uterus, Via Natural or Artificial Opening Endoscopic (ICD-10-PCS; CPT 58558; principal; 2022-10-20 07:15)
DX: N85.01 Benign endometrial hyperplasia (principal); R93.89 Abnormal findings on diagnostic imaging of other specified body structures; N32.81 Overactive bladder; E78.5 Hyperlipidemia, unspecified; Z87.891 Personal history of nicotine dependence; Z79.899 Other long term (current) drug therapy; Z79.82 Long term (current) use of aspirin
CPT/HCPCS: 58558; 00952; 88305; 93005; J7120; J2405

== ENCOUNTER → 2022-11-29 | Outpatient (CLI) | payer MEDICARE, OTHER, SELFPAY ==
--- NOTE | 2022-11-29 15:00 | CYSPIN_PTH ---
PATIENT: [place] LOC: [facility] U#:[id number] AGE/SX: 76/F ROOM: RE11/29/[address]: Dr. Annette Toro MD : [id number] BED: DIS: 11/29/2022 SPEC #: [id number] RECD: 11/30/22 08:41 STATUS: GARCÍA REJuliette #: [id number] CECELIA: 11/29/22 15:[address]: Annette Toro DEPT: CYTOLOGY RECD BY: Ayala Singh ENTERED: 11/30/22 08:41 SP TYPE: CYSPIN FL OTHR DR: Dr. Maryjane Wood MD Tissues: Urine Procedures: Pap Stain (control) Special Stain Group II Cytospin Fluid HEADER OPERATION: Not noted PRE-OP DIAGNOSIS: Gross hematuria TISSUE SUBMITTED: Urine for cytology DIAGNOSIS CYTOLOGY Urine for cytology (cytospin): Negative for high-grade urothelial carcinoma (NHGUC), [facility] System Category II. Acute inflammation. See comment. SJ:gil 12/01/2022 COMMENT Clinical correlation and appropriate follow up are necessary. The Shannon System for urine cytology diagnostic categorization was used in the evaluation of this case. CYTOLOGY STUDY Slides are reviewed. CYTOLOGY GROSS Received is 30 ml of yellow cloudy fluid labeled with the patient's name and and designated per the requisition as urine. Submitted for cytology preparation. / gil 11/30/2022 TC:2 CPT: 62598
[2022-11-29 19:58] LABS: Cytology, Body Fluid / CSF SEE PATHOLOGY REPORT
== END | disposition home or self-care (01) ==
PROVIDERS: PCP Internal Medicine; Visit Provider Urology
DX: R31.0 Gross hematuria (principal)
CPT/HCPCS: 88108; 88313

== ENCOUNTER → 2023-04-19 | Outpatient (CLI) | payer MEDICARE, OTHER, SELFPAY ==
--- NOTE | 2023-04-19 14:49 | VDLE_ITS ---
Reason For Study: Right leg swelling RIGHT LEFT GSV is normal. CFV is compressible, spontaneous, phasic, CFV is compressible, spontaneous, phasic, competent, and demonstrates normal competent and demonstrates normal augmentation. augmentation. FV is compressible, spontaneous, phasic, competent and demonstrates normal augmentation. POP V is compressible, spontaneous, phasic, competent and demonstrates normal augmentation. T/P Trunk is compressible. PTV is compressible. RT PerV is compressible. Procedure This is a venous duplex using B-mode, color flow and spectral Doppler. Exam performed in department. A preliminary report was called and/or faxed to Dr. Gaston. VL/Venous Duplex US, Unilateral Interpretation Summary There is no evidence of right lower extremity deep vein thrombosis. Right great saphenous vein appears patent and compressible segmentally. Normal flow patterns left common f emoral vein Ordering Physician: Walker Gaston Referring Physician: Maryjane Wood Performed By: Blanca Covarrubias RVT
--- OUTSIDE RECORDS SUMMARY | 2023-04-19 19:42 | XMS RPT_ITS | CCD ---
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 Work Phone: (7 sources) Amoxicillin; Translations: [AMOXICILLIN] Drug Allergy 10-30-[address] [facility] Work Phone: (7 sources) rosuvastatin; Translations: [ROSUVASTATIN] Drug Allergy 09-03-[address] [facility] Work Phone: (7 sources) Simvastatin; Translations: [SIMVASTATIN] Drug Allergy 06-29-[address] [facility] Work Phone: Medications Completed/Discontinued Medications Medication Drug Class(es) Dates Sig (Normalized) Sig (Original) aspirin 81 mg oral tablet (6 sources) Platelet Aggregation Inhibitor, Nonsteroidal Anti-inflammatory Drug Start: 03-11-2009 ASPIRIN 81 MG TAB Take one(1) tablet daily. 0 03/11/2009 Active Problems Active Problems Problem Classification Problem Date Documented Da te Episodic/Chronic Disorders of lipid metabolism (6 sources) Mixed hyperlipidemia; Translations: [Mixed hyperlipidemia] Onset: 10-27-2004 11-23-2015 Chronic Other aftercare (1 source) Patient encounter status; Translations: [Other group home (current) drug therapy] Episodic Other circulatory disease (6 sources) Disorder of artery; Translations: [Other specified disorders of arteries and arterioles] Onset: 10-27-2004 09-26-2005 Chronic Other female genital disorders (1 source) Polyp of corpus uteri; Translations: [Polyp of corpus uteri] 10-06-2022 Episodic Other nutritional; endocrine; and metabolic disorders (6 sources) Obese class I; Translations: [Obesity, unspecified] Onset: 10-06-2018 10-06-2018 Chronic Other screening for suspected conditions (not mental disorders or infectious disease) (4 sources) Endometrium thickened; Translations: [Abnormal findings on diagnostic imaging of other specified body structures] Onset: 10-05-2022 10-03-2022 Chronic Past or Other Problems Problem Classification Problem Date Documented Da te Episodic/Chronic Other and unspecified benign neoplasm (6 sources) History of polyp of colon; Translations: [Personal history of colonic polyps] Onset: 10-27-2004 06-02-2008 Episodic Other connective tissue disease (6 sources) Bilateral plantar fasciitis; Translations: [Plantar fascial fibromatosis] Onset: 09-21-2017 09-23-2018 Episodic Other skin disorders (6 sources) Breast changes; Translations: [Changes in skin texture] Onset: 01-07-2014 01-07-2014 Episodic Results Test Name Value Interpretation Reference Range Facil ity Vital Signs Date Time Vital Sign Value Performing Clinician Faci layo 10-06-2022 09:42-0400 Body weight 83.92 kg Ginny Lazcano MD Work Phone: [facility] 10-06-2022 09:42-0400 Diastolic blood pressure 70 mm[Hg] Ginny Lazcano MD Work Phone: [facility] 10-06-2022 09:42-0400 Systolic blood pressure 118 mm[Hg] Ginny Lazcano MD Work Phone: [facility] 10-03-2022 10:11-0400 Body weight 83.92 kg Ginny Lazcano MD Work Phone: [facility] 10-03-2022 10:11-0400 Diastolic blood pressure 74 mm[Hg] Ginny Lazcano MD Work Phone: [facility] 10-03-2022 10:11-0400 Systolic blood pressure 118 mm[Hg] Ginny Lazcano MD Work Phone: [facility] Encounters Encounter Date Encounter Type Care Provider Facility Start: 10-10-2022 Telephone encounter Ginny Lazcano MD Work Phone: OB/Gynecology Procedures Date Procedure Procedure Detail Performing Clinician Start: 10-05-2022 Us pelvic nonobstetric real-time image complete Ginny Lazcano MD Work Phone: Start: 09-02-2020 Adult depression screening assessment Oscar Stock MD Work Phone: Start: 11-29-2015 History of carotid endarterectomy S/P carotid endarterectomy Oscar Stock MD Work Phone: Plan of Treatment Date Care Activity Detail Author Start: 08-25-2023 DIABETES SCREEN DIABETES SCREEN [facility] Start: 10-13-2022 Influenza vaccination INFLUENZA (#1) [facility] Start: 10-03-2022 End: 10-04-2023 PELVIC US WHI PELVIC US WHI Anc Imaging Routine Thickened endometrium Expected: 10/03/2022, Expires: 10/04/2023 [facility] Work Phone: Immunizations Immunization Date Immunization Notes Care Provider Fa cili 07-04-2021 COVID-19 vaccine, ag e 12+ yr (PFIZER-BIONTECH - PURPLE TOP) Oscar Stock MD Work Phone: [facility] 12-20-2020 COVID-19 vaccine, ag e 12+ yr (PFIZER-BIONTECH - CARTER TOP) Oscar Stock MD Work Phone: [facility] 11-03-2020 influenza, high-dose , quadrivalent vaccine (FLUZONE HIGH DOSE QUADRIVALENT) Oscar Stock MD Work Phone: [facility] 05-06-2020 COVID-19 vaccine, ag e 12+ yr (PFIZER-BIONTECH - PURPLE TOP) Oscar Stock MD Work Phone: [facility] 04-15-2020 COVID-19 vaccine, ag e 12+ yr (PFIZER-BIONTECH - PURPLE TOP) Oscar Stock MD Work Phone: [facility] 12-05-2017 influenza, high dose seasonal, preservative-free Oscar Stock MD Work Phone: [facility] 09-21-2017 pneumococcal polysaccharide vaccine, 23 valent Oscar Stock MD Work Phone: [facility] 11-25-2016 influenza, high dose seasonal, preservative-free Oscar Stock MD Work Phone: [facility] 03-09-2015 pneumococcal conjuga te vaccine, 13 valent Oscar Stock MD Work Phone: [facility] 12-08-2014 influenza, seasonal, injectable Oscar Stock MD Work Phone: [facility] Work Phone: 11-10-2013 influenza, seasonal, injectable Oscar Stock MD Work Phone: [facility] 11-12-2012 influenza virus vacc ine, unspecified formulation Oscar Stock MD Work Phone: [facility] 10-27-2004 diphtheria and tetan us toxoids, adsorbed for pediatric use Oscar Stock MD Work Phone: [facility] Work Phone: Payers Date Payer Category Payer Medicare [id number] 2019 Unknown MMO MMO MEDICARE SUPPLEMENT [id number] 2019-Present [phone] [address] [place] [address] Indemnity [id number] 2019 Unknown MMO MMO MEDICARE SUPPLEMENT [id number] 2019-Present [phone] [address] [place] [address] Indemnity [id number] 2009 Medicare MEDICARE MEDICAR E A AND B [id number] 2009-Present [phone] [address] [address] [place] [address] Medicare [id number] 2009 Medicare MEDICARE MEDICAR E A AND B [id number] 2009-Present [phone] [place] [address] Medicare [id number] 2009 Medicare [id number] Social History Date Type Detail Facility Start: 10-03-2022 Tobacco smoking status NHIS Ex-smoke r [facility] End: 02-13-2012 History of tobacco use Current smoker [facility] End: 02-13-2012 History of tobacco use Cigarette Smoker [facility] Start: 09-03-2020 End: 10-06-2022 Alcohol intake Current non-drinker of alcohol (finding) [facility] Start: 09-02-2020 History SDOH Alcohol Frequency 1 [facility] Start: 09-02-2020 History SDOH Alcohol Std Drinks 98 [facility] Start: 09-02-2020 History SDOH Social Connections Phone 5 [facility] Start: 09-02-2020 History SDOH Social Connections Membership 2 [facility] Start: 09-02-2020 History SDOH Social Connections Living 3 [facility] Start: 09-02-2020 History SDOH Physica l Activity DPW 4 [facility] Start: 09-02-2020 History SDOH Physica l Activity MPS 6 [facility] Start: 09-02-[address] [facility] Start: 02-21-2012 End: 10-03-2022 Tobacco Comment 02/2012 started e-cigarette [facility] Start: 1945 Sex Assigned At Not on file C [facility] Start: 10-03-2022 Tobacco use and exposure Smoke less tobacco non-user [facility] Start: 09-02-2020 End: 10-03-2022 History of Social function [facility] Start: 09-02-2020 End: 10-03-2022 Social connection and isolation panel [facility] Do you belong to any clubs or organizations such as lutheran groups, unions, fraternal or athletic groups, or school groups? No [facility] Are you now , , , , never or living with a partner? [facility] How often to you hav e a drink containing alcohol? Never [facility] How many standard dr inks containing alcohol do you have on a typical day? Patient refused [facility] Do you feel stress - tense, restless, nervous, or anxious, or unable to sleep at night because your mind is troubled all the time - these days [OSQ] Not at all [facility] (I/We) worried [facility] (my/our) food would run out before (I/we) got money to buy more. Never true [facility] Clinical Notes 11-29-2015 to 10-10-2022 Telephone Encounter - Martina Sepulveda RN - 10/10/2022 3:44 PM EDTTelephone Encounter - Fadumo Hi RN - 10/10/2022 8:50 AM EDTTelephone Encounter - Fadumo Hi RN - 10/10/2022 8:50 AM EDT Note Date & Type Note Facility 10-10-2022 Miscellaneous Notes Patient notified. Martina Sepulveda RN Left message for patient to call office. Fadumo Hi RN ----- Message from Ginny Lazcano MD sent at 10/10/2022 8:01 AM EDT ----- Notify patient that pathology shows benign EM polyp. Will proceed with Hysteroscopy D&C polypectomy as scheduled. documented in this encounter [facility] 10-06-2022 Note HNO ID: [id number] Author: Ginny Camara MD Service: ? Author Type: Physician Type: Progress Notes Filed: 10/06/2022 10:14 AM Note Text: Katie Dugan presents for hysteroscopy. Indication: Thickened Endometrium on Ultrasound- appears cystic. Age: [age] year old LMP: No LMP recorded. Patient is postmenopausal. Contraception: none test: n/a VS: BP 118/70 Wt 185 lb (83.9kg) UNIVERSAL PROTOCOL / SAFETY CHECKLIST Procedure to be Performed: ENDOSEE and EMB Sign In: A Moment of CARE was completed. Personnel directly involved with the procedure wore the appropriate PPE (Personal Protective Equipment). Patient/Surrogate Stated/Verified: PATIENT VERIFIED(optional for EMERGENT procedures): Patient name, Date of , Relevant allergies, and The intended procedure Time Out Communication: Intended patient and procedure match the source documents. Consent documented and matches the intended procedure. Sign Out: SIGN OUT (optional for EMERGENT procedures): All specimen containers correctly labeled. Ginny Black MD OBJECTIVE: Cervix cleaned with betadine. A single tooth tenaculum was used to grasp cervix. Cervix was dilated. Under sterile conditions, using 60 mL normal saline as distention, ENDOSEE hysteroscopy performed without incident. No endocervical lesions seen. Endometrial lining is atrophic. Endometrial polyp x2. Endometrial biopsy performed. PROCEDURE SUMMARY: Patient tolerated procedure well. ASSESMENT: Endometrial thickening with polyp lesions on hysteroscopy. PLAN: Hysteroscopic polypectomy, DANDC in the OR and follow up EMB PRE OP COMPLETED TODAY Ginny Black MD [facility] 10-06-2022 History and physical note Pre-Op History and Physical HPI: The patient is a 76 year old female with incidental endometrial thickening found on CT scan- ultrasound today shows cystic appearing endometrium measuring 16.6mm. Endosee and EMB performed in in office which showed to large endometrial polyps. presenting for pre-operative visit. She is scheduled for Hysteroscopy D&C and polypectomy with symphion, for Thickend endometrium and Endometrial polyp on TBD. Procedure discussed along with risks, benefits and complications. Other alternatives discussed for management. Consent form signed? Yes. PAST MEDICAL HISTORY Diagnosis Date Carotid occlusion, right 09/26/2010 s/p CEA by Dr. Prema Hayes Mixed hyperlipidemia 10/27/2004 Neck and shoulder pain 11/29/2015 Since right CEA; intermittent with some numbness Personal history of colonic polyps 10/27/2004 Colonoscopy - 24 March 2004 Personal history of tobacco use, presenting hazards to health 01/25/2005 Plantar fasciitis, right 09/21/2017 Pure hypercholesterolemia Snoring PAST SURGICAL HISTORY Procedure Laterality Date ADENOIDECTOMY PRIMARY <AGE 12 Adenoidectomy ARTL CATHJ/CANNULJ MNTR/TRANSFUSION SPX PRQ 10-31-10 CHOLECYSTECTOMY 1996 COLONOSCOPY FLX DX W/COLLJ SPEC WHEN PFRMD 03/24/2004 Colonoscopy w/ bx. COLONOSCOPY FLX DX W/COLLJ SPEC WHEN PFRMD 11-17-14 NEUROPLASTY &/TRANSPOS MEDIAN NRV CARPAL TUNNE 12/13/2010 Carpal tunnel decomp right SKIN BX, 1 LESION 01/22/14 Punch bx right areolar skin TEAEC W/PATCH GRF CAROTID VERTB SUBCLAV NECK INC 10-31-10 RIGHT TONSILLECTOMY PRIMARY/SECONDARY <AGE 11 Tonsillectomy Current Outpatient Medications Medication Sig Dispense Refill oxybutynin XL (DITROPAN XL) 5 mg 24 hr tablet miSOPROStol (CYTOTEC) 200 mcg tablet Take two tablets PO night before procedure and two tablets morning of procedure 4 tablet 0 ezetimibe (ZETIA) 10 mg tablet Take 1 tablet by mouth once daily. 90 tablet 1 rosuvastatin (CRESTOR) 5 mg tablet Take 1 tablet by mouth daily at bedtime. As directed 30 tablet 0 vitamin B complex (B COMPLEX ORAL) Take 1 capsule by mouth once daily. Cholecalciferol, Vitamin D3, (VITAMIN D) 1,000 unit cap Take 1,000 Units by mouth once daily. ubidecarenone/vitamin E mixed (COQ10 SG 100 ORAL) Take by mouth. GUAIFENESIN SR ORAL Take by mouth as needed. TURMERIC ORAL Take 1,950 mg by mouth three times daily. Turmeric Curcumin with bioperine docusate sodium (STOOL SOFTENER) 100 mg ORAL capsule Take 1 capsule by mouth twice daily. 0 ASPIRIN 81 MG TAB Take one(1) tablet daily. 0 No current facility-administered medications for this visit. ALLERGIES: Adhesive, Amoxicillin, Crestor [Rosuvastatin], and Simvastatin PERSONAL HISTORY: Social History Tobacco Use Smoking status: Former Years: 30 Types: Cigarettes Quit date: 02/13/2012 Years since quittin.6 Smokeless tobacco: Never Tobacco comments: 02/2012 started e-cigarette Substance Use Topics Alcohol use: No Drug use: No FAMILY HISTORY: FAMILY HISTORY Problem Relation Age of Onset Diabetes Mother Hypertension Mother Lipids Mother Heart Mother Stroke Sister Hypertension Sister Diabetes Sister Lipids Sister other (Kidney Stones) Sister REVIEW OF SYMPTOMS: negative except as noted above PHYSICAL EXAMINATION: VITALS: Blood pressure 118/70, weight 185 lb (83.9 kg). GENERAL: The patient is well nourished, well hydrated in no acute distress. , The patient is oriented to time, place, and person. NECK: full range of motion GENITALIA: Normal external genitalia, Urethral meatus normal, Bladder nontender, normal vagina and normal vaginal tone, normal cervix, and perineum WNL WET PREP: no done IMPRESSION: 76yo with Thickened endometrium, Endometrial polyps on hysteroscopy performed in office. PLAN: Hysteroscopy, D&C, Polypectomy with symphion Pt has been counseled on risks/benefits and alternatives of surgery including but not limited to anesthesia, bleeding, infection, uterine perforation with subsequent injury to pelvic structures including bowel, bladder, ureters and vessels. Pt wishes to proceed with surgery at this time. I have reviewed and updated past medical and surgical history, medications and allergies Ginny Lazcano MD documented in this encounter [facility] 10-06-2022 Instructions Ale Vines Ma - 10/06/2022 9:43 AM EDT YOUR RECOVERY After your biopsy you may have: Vaginal bleeding (less than a normal menstrual period) Mild cramping Do NOT put anything in the vagina for 1 week after your endometrial biopsy. This includes: tampons douches and refraining from having sexual intercourse If you have any discomfort, you may take an over the counter pain medication (motrin, advil, ibuprofen, tylenol, etc). If this does not relieve your discomfort, contact the office. It is okay to wear a sanitary pad until the discharge and spotting stops. RISKS Although problems seldom occur with endometrial biopsies, there can be some complications. You may feel faint during and shortly after the procedure as well as have some bleeding after the procedure. There is also a risk of infection after the procedure. These complications are rare and can be easily treated. You should contact you doctor is you have any of the following: Heavy bleeding (more than your normal period) Bleeding with clots Severe abdominal pain Fever (more than 100.4F) Foul smelling vaginal discharge RESULTS We will have the results of your biopsy in 1-2 weeks. If you do not hear the results of your biopsy after 2 weeks, please contact the office for the results. If you have any additional questions or concerns please do not hesitate to contact the office. documented in this encounter [facility] 10-06-2022 History of Present illness Narrative Kaite Dugan presents for hysteroscopy. Indication: Thickened Endometrium on Ultrasound- appears cystic. Age: [age] year old LMP: No LMP recorded. Patient is postmenopausal. Contraception: none test: n/a VS: BP 118/70 Wt 185 lb (83.9kg) UNIVERSAL PROTOCOL / SAFETY CHECKLIST Procedure to be Performed: ENDOSEE and EMB Sign In: A Moment of CARE was completed. Personnel directly involved with the procedure wore the appropriate PPE (Personal Protective Equipment). Patient/Surrogate Stated/Verified: PATIENT VERIFIED(optional for EMERGENT procedures): Patient name, Date of , Relevant allergies, and The intended procedure Time Out Communication: Intended patient and procedure match the source documents. Consent documented and matches the intended procedure. Sign Out: SIGN OUT (optional for EMERGENT procedures): All specimen containers correctly labeled. Ginny Black MD OBJECTIVE: Cervix cleaned with betadine. A single tooth tenaculum was used to grasp cervix. Cervix was dilated. Under sterile conditions, using 60 mL normal saline as distention, ENDOSEE hysteroscopy performed without incident. No endocervical lesions seen. Endometrial lining is atrophic. Endometrial polyp x2. Endometrial biopsy performed. PROCEDURE SUMMARY: Patient tolerated procedure well. ASSESMENT: Endometrial thickening with polyp lesions on hysteroscopy. PLAN: Hysteroscopic polypectomy, D&C in the OR and follow up EMB PRE OP COMPLETED TODAY Ginny Black MD documented in this encounter [facility] 10-03-2022 Note HNO ID: [id number] Author: Ginny Camara MD Service: ? Author Type: Physician Type: Progress Notes Filed: 10/03/2022 11:01 AM Note Text: Katie Dugan is a 76 year old female who presents from her primary for follow-up of a CT scan that revealed endometrial thickening. Patient reports had a CT scan done in March 2022 for pain that she was having that was due to a. On that CT scan it showed endometrial thickening of 1.1 cm. Patient reports she was not aware of this until August when she met with her primary care physician who recommended follow-up with [facility]. Patient reports she has not seen [facility] in many years. Patient states she has not had any vaginal bleeding since going through menopause many years ago. Patient denies any abnormal discharge. She reports she has not had pelvic ultrasound performed. Patient offers no other concerns at this time. Patient denies a history of uterine fibroids or polyps. She denies any surgery on her uterus or cervix. OB History T3 L3 SAB0 IAB0 Ectopic0 Multiple0 Live Births0 Comment: Pt also has 7 Grandchildren. 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 Prema Hayes Mixed hyperlipidemia 10/27/2004 Neck and shoulder pain 11/29/2015 Since right CEA; intermittent with some numbness Personal history of colonic polyps 10/27/2004 Colonoscopy - 24 March 2004 Personal history of tobacco use, presenting hazards to health 01/25/2005 Plantar fasciitis, right 09/21/2017 Pure hypercholesterolemia Snoring PAST SURGICAL HISTORY Procedure Laterality Date COLONOSCOP W/ OR W/O [facility] SPEC 03/24/2004 Colonoscopy w/ bx. COLONOSCOP W/ OR W/O [facility] SPEC 11-17-14 INSERT CATH,ART,PERCUT,SHORTTERM 10-31-10 REMOVAL ADENOIDS,PRIMARY,<11 Y/O Adenoidectomy REMOVAL GALLBLADDER 1996 REMOVAL OF TONSILS,<11 Y/O Tonsillectomy [facility] N/CARPAL TUNNEL SURG 12/13/2010 Carpal tunnel decomp right SKIN BX, 1 LESION 01/22/14 Punch bx right areolar skin THROMBOENDARTECTMY NECK,NECK INCIS 10-31-10 RIGHT FAMILY HISTORY Problem Relation Age of Onset Diabetes Mother Hypertension Mother Lipids Mother Heart Mother Stroke Sister Hypertension Sister Diabetes Sister Lipids Sister other (Kidney Stones) Sister Social History Tobacco Use Smoking status: Former Years: 30 Types: Cigarettes Quit date: 02/13/2012 Years since quittin.6 Smokeless tobacco: Never Tobacco comments: 02/2012 started e-cigarette Substance Use Topics Alcohol use: No Drug use: No Current Outpatient Medications Medication Sig ezetimibe (ZETIA) 10 mg tablet Take 1 tablet by mouth once daily. rosuvastatin (CRESTOR) 5 mg tablet Take 1 tablet by mouth daily at bedtime. As directed vitamin B complex (B COMPLEX ORAL) Take 1 capsule by mouth once daily. Cholecalciferol, Vitamin D3, (VITAMIN D) 1,000 unit cap Take 1,000 Units by mouth once daily. ubidecarenone/vitamin E mixed (COQ10 SG 100 ORAL) Take by mouth. GUAIFENESIN SR ORAL Take by mouth as needed. TURMERIC ORAL Take 1,950 mg by mouth three times daily. Turmeric Curcumin with bioperine docusate sodium (STOOL SOFTENER) 100 mg ORAL capsule Take 1 capsule by mouth twice daily. ASPIRIN 81 MG TAB Take one(1) tablet daily. No current facility-administered medications for this visit. Allergies As of Date: 10/03/2022 Allergen Noted Reaction ADHESIVE 11/11/2010 Other: See Comments AMOXICILLIN 10/30/2008 Rash CRESTOR [ROSUVASTATIN] 09/03/2020 Myalgia SIMVASTATIN 06/29/2017 Intolerance Fully Assessed 09/03/2020 REVIEW OF SYSTEMS Abdomen: no pain . Expanded ROS: GENERAL: Negative for fever Allergies and current medication updated:Yes EXAM: BP 118/74 Wt 185 lb (83.9kg) GENERAL: pleasant, female in no apparent distress HEENT: atraumatic NECK: full range of motion DERMATOLOGY: without lesions NEURO: alert and oriented x3,exam grossly non-focal EXTREMITIES: normal ASSESSMENT AND PLAN: Encounter Diagnosis ICD-10-CM 1. Thickened endometrium R93.89 PELVIC US WHI ENDOMETRIAL BIOPSY 2. Reviewed CT report from March 2022 at [facility]. Describes thickening of the endometrium measuring 1.1 m. Discussed findings with the patient reviewed that she has not had vaginal bleeding. Discussed causes of endometrial thickening. Reviewed options today which would be ordering a pelvic ultrasound with follow-up in the office after. Performing an endometrial biopsy. After our discussion today patient would like to get a pelvic ultrasound and then based on those findings possibly proceed with an in office Endo see with endometrial biopsy if indicated. Cytotec was ordered in case biopsy needs to be performed. All questi (more content not included)... [facility] 10-03-2022 History of Present illness Narrative Katie Dugan is a 76 year old female who presents from her primary for follow-up of a CT scan that revealed endometrial thickening. Patient reports had a CT scan done in March 2022 for pain that she was having that was due to a. On that CT scan it showed endometrial thickening of 1.1 cm. Patient reports she was not aware of this until August when she met with her primary care physician who recommended follow-up with [facility]. Patient reports she has not seen [facility] [employer] in many years. Patient states she has not had any vaginal bleeding since going through menopause many years ago. Patient denies any abnormal discharge. She reports she has not had pelvic ultrasound performed. Patient offers no other concerns at this time. Patient denies a history of uterine fibroids or polyps. She denies any surgery on her uterus or cervix. OB History T3 L3 SAB0 IAB0 Ectopic0 Multiple0 Live Births0 Comment: Pt also has 7 Grandchildren. 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 Prema Hayes Mixed hyperlipidemia 10/27/2004 Neck and shoulder pain 11/29/2015 Since right CEA; intermittent with some numbness Personal history of colonic polyps 10/27/2004 Colonoscopy - 24 March 2004 Personal history of tobacco use, presenting hazards to health 01/25/2005 Plantar fasciitis, right 09/21/2017 Pure hypercholesterolemia Snoring PAST SURGICAL HISTORY Procedure Laterality Date COLONOSCOP W/ OR W/O BRS SPEC 03/24/2004 Colonoscopy w/ bx. COLONOSCOP W/ OR W/O BRS SPEC 11-17-14 INSERT CATH,ART,PERCUT,SHORTTERM 10-31-10 REMOVAL ADENOIDS,PRIMARY,<12 Y/O Adenoidectomy REMOVAL GALLBLADDER 1996 REMOVAL OF TONSILS,<12 Y/O Tonsillectomy REVISE MEDIAN N/CARPAL TUNNEL SURG 12/13/2010 Carpal tunnel decomp right SKIN BX, 1 LESION 01/22/14 Punch bx right areolar skin THROMBOENDARTECTMY NECK,NECK INCIS 10-31-10 RIGHT FAMILY HISTORY Problem Relation Age of Onset Diabetes Mother Hypertension Mother Lipids Mother Heart Mother Stroke Sister Hypertension Sister Diabetes Sister Lipids Sister other (Kidney Stones) Sister Social History Tobacco Use Smoking status: Former Years: 30 Types: Cigarettes Quit date: 02/13/2012 Years since quittin.6 Smokeless tobacco: Never Tobacco comments: 02/2012 started e-cigarette Substance Use Topics Alcohol use: No Drug use: No Current Outpatient Medications Medication Sig ezetimibe (ZETIA) 10 mg tablet Take 1 tablet by mouth once daily. rosuvastatin (CRESTOR) 5 mg tablet Take 1 tablet by mouth daily at bedtime. As directed vitamin B complex (B COMPLEX ORAL) Take 1 capsule by mouth once daily. Cholecalciferol, Vitamin D3, (VITAMIN D) 1,000 unit cap Take 1,000 Units by mouth once daily. ubidecarenone/vitamin E mixed (COQ10 SG 100 ORAL) Take by mouth. GUAIFENESIN SR ORAL Take by mouth as needed. TURMERIC ORAL Take 1,950 mg by mouth three times daily. Turmeric Curcumin with bioperine docusate sodium (STOOL SOFTENER) 100 mg ORAL capsule Take 1 capsule by mouth twice daily. ASPIRIN 81 MG TAB Take one(1) tablet daily. No current facility-administered medications for this visit. Allergies As of Date: 10/03/2022 Allergen Noted Reaction ADHESIVE 11/11/2010 Other: See Comments AMOXICILLIN 10/30/2008 Rash CRESTOR [ROSUVASTATIN] 09/03/2020 Myalgia SIMVASTATIN 06/29/2017 Intolerance Fully Assessed 09/03/2020 REVIEW OF SYSTEMS Abdomen: no pain . Expanded ROS: GENERAL: Negative for fever Allergies and current medication updated:Yes EXAM: BP 118/74 Wt 185 lb (83.9kg) GENERAL: pleasant, female in no apparent distress HEENT: atraumatic NECK: full range of motion DERMATOLOGY: without lesions NEURO: alert and oriented x3,exam grossly non-focal EXTREMITIES: normal ASSESSMENT AND PLAN: Encounter Diagnosis ICD-10-CM 1. Thickened endometrium R93.89 PELVIC US I ENDOMETRIAL BIOPSY 2. Reviewed CT report from March 2022 at [facility]. Describes thickening of the endometrium measuring 1.1 m. Discussed findings with the patient reviewed that she has not had vaginal bleeding. Discussed causes of endometrial thickening. Reviewed options today which would be ordering a pelvic ultrasound with follow-up in the office after. Performing an endometrial biopsy. After our discussion today patient would like to get a pelvic ultrasound and then based on those findings possibly proceed with an in office Endo see with endometrial biopsy if indicated. Cytotec was ordered in case biopsy needs to be performed. All questions were answered today to the best of my ability. Patient was comfortable with the plan. CT scan reviewed from [facility] and notes from primary care were reviewed. Medical Decision Making: Problems: Moderate: New problem with uncertain prognosis Data: Unique source(s) for external note(s) reviewed: 1 Unique test result(s) reviewed: 1 Unique test(s) ordered: 3+ Risk: Moderate: Drug management Medical Decision Making Level: 4 - Moderate Ginny Black MD documented in this encounter [facility] 08-08-2021 Miscellaneous Notes Chart updated documented in this encounter [facility] 06-30-2021 Miscellaneous Notes Patient notified of providers message and verbalized understanding. Already had lipids in April. Filed CBC and CMP so can get done prior to appointment Patient scheduled with Dipika Snyder, please advise if labs needed before Needs follow up appointment--last seen August 2020 The following approved medication requests have been transmitted electronically. Signed Prescriptions Disp Refills ezetimibe (ZETIA) 10 mg tablet 90 tablet 1 Sig: Take 1 tablet by mouth once daily. SARAH: No Authorizing Provider: OSCAR STOCK MD Patient has been identified by name and date of : Yes Patient phones for refill(s): Pending Prescriptions Disp Refills EZETIMIBE 10 MG TABLET 90 tablet 3 Sig: Take 1 tablet by mouth once daily. SARAH: No Date of last office visit in primary care: 09/03/20 Last 2 Encounter Wt Readings: Date: Wt: 09/03/2020 92.1 kg (203 lb) 09/23/2018 93.9 kg (207 lb) Previous labs/tests for medication: Cholesterol: HDL Cholesterol (mg/dL) Date Value 04/13/2021 56 08/24/2020 48 LDL Cholesterol (mg/dL) Date Value 04/13/2021 91 08/24/2020 130 ALT (U/L) Date Value 08/24/2020 19 Non HDL Cholesterol (mg/dL) Date Value 04/13/2021 107 08/24/2020 158 Please advise. Thank you. Jane Taylor LPN documented in this encounter [facility] documented as of this encounter (statuses as of 06/30/2021) [facility] History of Past illness Narrative* Problem Noted Date Resolved Date Neck and shoulder pain 11/29/2015 8 Overview: Since right CEA; intermittent with some numbness Encounter for screening for malignant neoplasm of intestinal tract 11/12/2014 11/23/2015 Tobacco use disorder 09/26/2010 11/23/2015 Overview: Quit smoking Carotid occlusion, right 09/26/2010 016 Overview: s/p CEA by Dr. Prema Hayes Depression 03/11/2009 08/06/2013 Sebaceous cyst 04/07/2008 03/09/2015 Personal history of tobacco use, presenting hazards to health 01/25/2005 09/21/2017 documented as of this encounter (statuses as of 08/08/2021) [facility] History of Past illness Narrative* Problem Noted Date Diagnosed Date Resolved Date Neck and shoulder pain 11/29/201509/21 Overview: Since right CEA; intermittent with some numbness Encounter for screening for malignant neoplasm of intestinal tract 11/12/2014 11/23/2015 Tobacco use disorder 09/26/2010 016 Overview: Quit smoking Carotid occlusion, right 09/26/201012/2015 Overview: s/p CEA by Dr. Prema aHyes Depression 03/11/2009 08/06/2013 Sebaceous cyst 04/07/2008 03/09/2015 Personal history of tobacco use, presenting hazards to health 01/25/2005 09/21/2017 documented as of this encounter (statuses as of 10/03/2022) [facility] History of Past illness Narrative* Problem Noted Date Diagnosed Date Resolved Date Neck and shoulder pain 11/29/201509/21 Overview: Since right CEA; intermittent with some numbness Encounter for screening for malignant neoplasm of intestinal tract 11/12/2014 11/23/2015 Tobacco use disorder 09/26/2010 016 Overview: Quit smoking Carotid occlusion, right 09/26/201012/2015 Overview: s/p CEA by Dr. Prema Hayes Depression 03/11/2009 08/06/2013 Sebaceous cyst 04/07/2008 03/09/2015 Personal history of tobacco use, presenting hazards to health 01/25/2005 09/21/2017 documented as of this encounter (statuses as of 10/06/2022) [facility] History of Past illness Narrative* Problem Noted Date Diagnosed Date Resolved Date Neck and shoulder pain 11/29/201509/21 Overview: Since right CEA; intermittent with some numbness Encounter for screening for malignant neoplasm of intestinal tract 11/12/2014 11/23/2015 Tobacco use disorder 09/26/2010 016 Overview: Quit smoking Carotid occlusion, right 09/26/201012/2015 Overview: s/p CEA by Dr. Prema Hayes Depression 03/11/2009 08/06/2013 Sebaceous cyst 04/07/2008 03/09/2015 Personal history of tobacco use, presenting hazards to health 01/25/2005 09/21/2017 documented as of this encounter (statuses as of 10/06/2022) [facility] History of Past illness Narrative* Problem Noted Date Diagnosed Date Resolved Date Neck and shoulder pain 11/29/201509/21 Overview: Since right CEA; intermittent with some numbness Encounter for screening for malignant neoplasm of intestinal tract 11/12/2014 11/23/2015 Tobacco use disorder 09/26/2010 016 Overview: Quit smoking Carotid occlusion, right 09/26/201012/2015 Overview: s/p CEA by Dr. Prema Hayes Depression 03/11/2009 08/06/2013 Sebaceous cyst 04/07/2008 03/09/2015 Personal history of tobacco use, presenting hazards to health 01/25/2005 09/21/2017 documented as of this encounter (statuses as of 10/11/2022) [facility] note* Diagnosis Encounter for long-term current use of medication- Primary documented in this encounter [facility] note* Diagnosis Thickened endometrium- Primary Nonspecific (abnormal) findings on radiological and other examination of genitourinary organs documented in this encounter [facility] note* Diagnosis Thickened endometrium- Primary Nonspecific (abnormal) findings on radiological and other examination of genitourinary organs Endometrium, polyp Polyp of corpus uteri documented in this encounter [facility] note* Diagnosis Thickened endometrium Nonspecific (abnormal) findings on radiological and other examination of genitourinary organs documented in this encounter [facility] for referral (narrative)* Outpatient Procedure (Routine) - Pending Review Specialty Diagnoses / Procedures Referred By Geneva leon Referred To Contact [facility] Diagnoses Thickened endometrium Procedures OFFICE HYSTEROSCOPY HYSTEROSCOPY BX ENDOMETRIUM&/POLYPC W/WO D&C Ginny Camara MD [address] [place] [address] [facility] [address] [place] [address] Referral ID Status Reason Start Date Expiration Date Visits Requested Visits Authorized [id number] Pending Review Auto-Generat ed Referral 10/03/2022 10/03/2023 1 1 * Outpatient Procedure (Routine) - Pending Review Specialty Diagnoses / Procedures Referred By Geneva leon Referred To Contact [facility] Diagnoses Thickened endometrium Procedures ENDOMETRIAL BIOPSY ENDOMETRIAL BX W/WO ENDOCERVIX BX W/O DILAT SPX Ginny Camara MD [address] [place] [address] [facility] [address] [address] Referral ID Status Reason Start Date Expiration Date Visits Requested Visits Authorized [id number] Pending Review Auto-Generat ed Referral 10/03/2022 10/03/2023 1 1 * Diagnostic Procedure Only (Routine) - Authorized Specialty Diagnoses / Procedures Referred By Contac t Referred To Contact [facility] Diagnoses Thickened endometrium Procedures PELVIC US WHI US PELVIC NONOBSTETRIC REAL-TIME IMAGE COMPLETE Ginny Camara MD [address] [place] [address] [address] Referral ID Status Reason Start Date Expiration Date Visits Requested Visits Authorized [id number] Authorized Auto-Generat ed Referral 10/03/2022 10/03/2023 1 1 [facility] for referral (narrative)* Outpatient Procedure (Routine) - Pending Review Specialty Diagnoses / Procedures Referred By Contac t Referred To Contact [facility] Diagnoses Thickened endometrium Endometrium, polyp Procedures ENDOMETRIAL BIOPSY ENDOMETRIAL BX W/WO ENDOCERVIX BX W/O DILAT SPX Ginny Camara MD [address] [place] [address] [facility] [address] [place] [address] Referral ID Status Reason Start Date Expiration Date Visits Requested Visits Authorized [id number] Pending Review Auto-Generat ed Referral 10/06/2022 10/06/[address] [facility] Summary Purpose Family History No Family History Records FoundNo Family History Records Found Advance Directives No Advanced Directives Records FoundNo Advanced Directives Records Found Additional Source Comments INFORMATION SOURCE (unrecogn ized section and content) DATE CREATED AUTHOR AUTHOR'S ORGANIZ ATION 10/28/2022 [facility] Source Comments (unrecognize d section and content) In the event this informatio n is protected by the Federal Confidentiality of Alcohol and Drug Abuse Patient Records regulations: The Federal rules restrict any use of the information to criminally investigate or prosecute any alcohol or drug abuse patient.[facility] event this information is protected by the Federal Confidentiality of Alcohol and Drug Abuse Patient Records regulations: The Federal rules restrict any use of the information to criminally investigate or prosecute any alcohol or drug abuse patient.[facility] the event this information is protected by the Federal Confidentiality of Alcohol and Drug Abuse Patient Records regulations: The Federal rules restrict any use of the information to criminally investigate or prosecute any alcohol or drug abuse patient.[facility] the event this information is protected by the Federal Confidentiality of Alcohol and Drug Abuse Patient Records regulations: The Federal rules restrict any use of the information to criminally investigate or prosecute any alcohol or drug abuse patient.[facility] the event this information is protected by the Federal Confidentiality of Alcohol and Drug Abuse Patient Records regulations: The Federal rules restrict any use of the information to criminally investigate or prosecute any alcohol or drug abuse patient.[facility] the event this information is protected by the Federal Confidentiality of Alcohol and Drug Abuse Patient Records regulations: The Federal rules restrict any use of the information to criminally investigate or prosecute any alcohol or drug abuse patient.[facility] Reason for Visit (unrecogniz ed section and content) Reason Comments Consult Reason Comments Endometrial Biopsy Reason Comments Other Thickened endometriu m Specialty Diagnoses / Procedures Referred By Contac t Referred To Contact [facility] Diagnoses Thickened endometrium Procedures PELVIC US WHI US PELVIC NONOBSTETRIC REAL-TIME IMAGE COMPLETE Ginny Camara MD [address] [place] [address] [facility] [address] [place] [address] Referral ID Status Reason Start Date Expiration Date V isits Requested Visits Authorized [id number] Closed Auto-Generate d Referral 10/03/2022 10/03/2023 1 1 Reason Comments Results Care Teams (unrecognized sec tion and content) Forward Air Controller/Air Officer Relationship Specialty Start Date End Date Oscar Stock MD [address] [place], [place] [id number] PCP - General Internal Medicine 11/23/15 Forward Air Controller/Air Officer Relationship Specialty Start Date End Date Maryjane Wood MD [address] [facility] [address] [place] [address] PCP - General Internal Medicine 08/20/21 Forward Air Controller/Air Officer Relationship Specialty Start Date End Date Maryjane Wood MD [address] [facility] [address] [place] [address] PCP - General Internal Medicine 08/20/21 Forward Air Controller/Air Officer Relationship Specialty Start Date End Date Maryjane Wood MD [address] [facility] [address] [place] [address] PCP - General Internal Medicine 08/20/21 FOR RECORDS PERTAINING TO PATIENTS WHO ARE OR HAVE BEEN ENROLLED IN A CHEMICAL DEPENDENCY/SUBSTANCEABUSE PROGRAM, SOME INFORMATION MAY BE OMITTED. This clinical summary was aggregated from multiple sources. Caution should be exercised in using it in the provision of clinical care. This summary normalizes information from multiple sources, and as a consequence, information in this document may materially change the coding, format and clinical context of patient data. In addition, data may be omitted in some cases. CLINICAL DECISIONS SHOULD BE BASED ON THE PRIMARY CLINICAL RECORDS. [facility] [employer] [facility]. provides no warranty or guarantee of the accuracy or completeness of information in this document.
== END | disposition home or self-care (01) ==
LOC: CVS 14:48
PROVIDERS: PCP Internal Medicine; Referring Provider Specialist; Visit Provider Specialist
DX: R22.41 Localized swelling, mass and lump, right lower limb (principal)
CPT/HCPCS: 93971

== ENCOUNTER → 2023-07-26 | Outpatient (CLI) | payer MEDICARE, OTHER, SELFPAY ==
[2023-07-26 12:25] LABS: Absolute Lymphocyte Count 1.79 X10^3/uL (0.83-4.51); Absolute Neutrophil Count 3.8 X10^3/uL (2.0-7.7); Basophil# 0.06 X10^3/uL; Eosinophil# 0.01 X10^3/uL; Eosinophils% 0.2 % (0-5); Hematocrit 42.6 % (37-47); Hemoglobin 14.2 g/dL (12.0-15.0); Lymphocyte # 1.79 X10^3/ul (0.83-4.51); Lymphocyte % 29.5 % (19-41); Mean Corp Hgb Conc 33.3 g/dL (32-36); Mean Corpuscular Hgb 30.2 pg (27.0-32.0); Mean Corpuscular Volume 90.6 fL (81-99); Monocyte# 0.43 X10^3/uL; Monocyte% 7.1 % (0-10); NRBC Flagged by Analyzer 0 % (0-5); Neutrophil # 3.78 X10^3/uL (2.7-7.7); Neutrophil % 62.2 % (47-70); Platelet Count 219 K/mm3 (150-450); RBC Distribution Width CV 11.9 % (11.6-14.6); RBC Distribution Width SD 39.2 fl (35.1-43.9); White Blood Count 6.1 K/mm3 (4.4-11.0)
[2023-07-26 15:12] LABS: ALB/GLOB Ratio 1.3 RATIO (0.9-2.4); AST(SGOT) 23 U/L (15-37); Alanine Aminotransfer ALT/SGPT 27 U/L (13-56); Albumin, Serum 4.2 g/dL (3.2-5.0); Alkaline Phosphatase 64 U/L (45-117); Anion Gap 4 (5-15); BUN 15 mg/dL (7-18); BUN/Creat Ratio 21.3 RATIO (10-20); Chloride 107 mmol/L (98-107); Cholesterol 188 mg/dL (200); EST Glomerular Filtration Rate 85 mL/min (>60); Est Glom Filt Rate - Afr Amer 103 mL/min (>60); Globulin 3.2 g/dL (2.2-4.2); Glucose 102 mg/dL (74-106); High Density Lipoprotein 55 mg/dL; Potassium 4.2 mmol/L (3.5-5.1); Protein, Total 7.4 g/dL (6.4-8.2); Sodium Level 138 mmol/L (136-145); Triglycerides 148 mg/dL; Very Low Density Lipoprotein 30 mg/dL (5-40)
== END | disposition home or self-care (01) ==
LOC: BIMLAB 09:26
PROVIDERS: PCP Internal Medicine; Visit Provider Internal Medicine
DX: E78.2 Mixed hyperlipidemia (principal)
CPT/HCPCS: 36415; 80053; 80061; 85025

== ENCOUNTER → 2023-07-30 | Outpatient (CLI) | payer MEDICARE, OTHER, SELFPAY ==
[2023-07-30 11:29] LABS: Bacteria 0 SEEN /hpf (None Seen); Mucous, Urine 0 SEEN /hpf (<or=2+); Red Blood Cells-Urine 0 SEEN /hpf (0-5); Squamous Epithelial Cells - UA 0 SEEN /hpf (5-10); White Blood Cells 0 SEEN /hpf (0-5)
[2023-07-30 12:24] LABS: Color, Urine Yellow (Yellow); Glucose, Dipstick Normal (Normal); Ketone-Dipstick Negative (Negative); Leukocyte Esterase-Dipstick Negative /ul (Negative); Nitrite-Dipstick Negative (Negative); Occult Blood-Urine Negative /ul (Negative); Protein-Dipstick Negative (Negative); Specific Gravity, Urine 1.005 (1.002-1.030); Urine Bilirubin Dipstick Negative (Negative); Urine Clarity Clear (Clear); Urine Urobilinogen Normal (Normal)
== END | disposition home or self-care (01) ==
LOC: LABSPEC 11:27
PROVIDERS: PCP Internal Medicine; Visit Provider Internal Medicine
DX: N32.81 Overactive bladder (principal)
CPT/HCPCS: 81001

== ENCOUNTER 2023-09-05 00:35 | Emergency (ER) | payer MEDICARE, OTHER, SELFPAY ==
[2023-09-05 00:36] VITALS: BP 192/82; PULSE 70; RESP 17; TEMP 36.4; O2SAT 100; BMI 31.1
--- NOTE | 2023-09-05 00:51 | EKG12_ITS ---
Test Reason : DYSRHYTHMIA Blood Pressure : / mmHG Vent. Rate : 064 BPM Atrial Rate : 064 BPM P-R Int : 164 ms QRS Dur : 082 ms QT Int : 390 ms P-R-T Axes : 029 -05 026 degrees QTc Int : 402 ms Normal sinus rhythm Normal ECG Confirmed by JULISSA JOSE, LAILA ([id number]), photo editor CAMPBELL LILLY ([id number]) on 09/05/2023 8:59:32 AM Referred By: Confirmed By:LAILA COSTA MD
--- NOTE | 2023-09-05 00:52 | EX.ED.DYSGE1 ---
HPI History of Present Illness Chief Complaint: Hypertension Detail of Chief Complaint: High blood pressure Informant: patient Narrative Narrative: Patient presents emergency department complaint of high blood pressure today. Patient states that she saw her primary care physician today and her pressure was elevated there and could not get it down below 180 with relaxation. She was told that if her pressure remained elevated to come to the emergency department. She is currently not on blood pressure medicine. She does have history of hypertension. Patient also states that she has been more agitated over the last 3 weeks. She has been under more stress. She has had some issues with her right leg for which she saw Dr. Saldaña today. She has had prior history of a carotid endarterectomy. She denies chest pain or shortness of breath. She denies headaches. Patient has been taken ibuprofen and Tylenol daily for the last 3 weeks because she has had a lot of pain in her right knee that is chronic. She has had prior injections in the right knee. She has had physical therapy for it. [facility] Medical History (Updated 09/05/23 @ 02:[address] William Whaley, DO) Right knee pain Hematuria COVID-19 Contact with or exposure to viral disease History of hiatal hernia Urinary frequency OAB (overactive bladder) Thickened endometrium Hypertension Health care maintenance Elevated blood pressure reading Wears glasses Thyroid disease Former smoker Shortness of breath on exertion History of stress test Cardiology follow-up encounter Carotid artery stenosis Hyperlipidemia History of carotid artery stenosis Home Medications ?Medication ?Instructions ?Recorded ?Last Taken ?Type aspirin 81 mg tablet,delayed 81 mg PO DAILY 06/03/18 10/19/22 History release (Adult Low Dose Aspirin) docusate sodium 50 mg capsule 50 mg PO DAILY 12/11/18 Unknown History (Stool Softener) guaifenesin 1,200 mg tablet, 1,200 mg PO BID PRN Congestion 12/11/18 Unknown History extended release 12 hr (Mucinex) vitamin B complex 1 cap PO DAILY 05/17/21 Unknown History coenzyme Q10 100 mg capsule (Co 100 mg PO DAILY 08/19/21 Unknown History Q-10) turmeric root extract 1,053 mg 1,076 mg PO DAILY 08/19/21 Unknown History tablet calcium carbonate (Calcium 600) 600 mg PO BID #90 tabs 07/04/22 Unknown Rx cholecalciferol (vitamin D3) 25 1,000 unit PO BID 07/04/22 Unknown History mcg (1,000 unit) capsule rosuvastatin 5 mg tablet (Crestor) 5 mg PO WE 08/21/22 Unknown History inulin 2 gram chewable tablet 4 g PO DAILY 01/26/23 Unknown History (Fiber Gummies) polyethylene glycol 3350 17 4 g PO DAILY 01/26/23 Unknown History gram/dose oral powder (Miralax) ascorbate calcium (vitamin C) 500 500 mg PO DAILY 07/30/23 Unknown History mg tablet d-mannose 500 mg capsule mg PO 07/30/23 Unknown History glucosamine sulfate 1,000 mg 2,000 mg PO DAILY 07/30/23 Unknown History capsule ezetimibe 10 mg tablet See Rx Instructions .Route 09/03/23 Unknown Rx .COMPLEX #90 tabs lorazepam 1 mg tablet (Ativan) 1 mg PO TID PRN anxiety #10 tabs 09/05/23 Unknown Rx Allergy/AdvReac Type Severity Reaction Status Date / Time amoxicillin (Amoxicillin) Allergy Rash Verified 09/05/23 00:36 dexamethasone AdvReac Severe Other Verified 09/05/23 00:36 adhesive AdvReac Swelling Verified 09/05/23 00:36 simvastatin AdvReac Pain in Verified 09/05/23 00:36 joints Family History Uncle Colon cancer Mother Diabetes Hypertension High cholesterol CVA (cerebral vascular accident) Thyroid disorder Heart disease Myocardial infarction Sister Diabetes Hypertension High cholesterol Kidney disease CVA (cerebral vascular accident) Grandmother Diabetes Surgical History History of dilation and curettage History of carpal tunnel repair History of adenoidectomy Hx of right cataract extraction Hx of left cataract extraction History of colonoscopy (~2014) History of tonsillectomy History of laparoscopic cholecystectomy History of right-sided carotid endarterectomy (~10/31/10) Social History Smoking Status: Former smoker alcohol intake: never substance use type: does not use ROS ROS ED ROS Narrative Hypertension Review of Systems ROS Unobtainable: other Constitutional Constitutional ED: Reports lethargy; Denies chills, fever(s), sweats or weight loss Eyes Eyes: Denies blurry vision, change in vision or diplopia ENT ENT ED: Denies rhinorrhea or sore throat Cardiovascular Cardiovascular: Denies chest pain, orthopnea or racing heartbeat Respiratory/Chest Respiratory/Chest: Denies cough, dyspnea, dyspnea on exertion, orthopnea or sputum Gastrointestinal Gastrointestinal: Denies abdominal pain, diarrhea, nausea or vomiting Genitourinary Genitourinary ED: Denies dysuria, hematuria or urinary frequency Musculoskeletal Musculoskeletal: Reports other Details: Right knee pain ; Denies arthralgias, back pain, myalgias or neck pain Integumentary Denies abscess, Abrasions or rash Neurologic Neurologic: Denies headache(s) or weakness Psychiatric Psychiatric: Denies anxiety, depression or suicidal thoughts Endocrine Endocrinology: Denies polydipsia, polyphagia or polyuria Hematologic/Lymphatic Hematologic/Lymphatic: Denies easy bleeding, easy bruising or lymphadenopathy Allergic/Immunologic Allergic/Immunologic ED: Denies mouth swelling, tongue swelling or urticaria EXAM Physical Exam Const Vital Signs: 09/05/23 00:36 09/05/23 00:38 09/05/23 01:29 Temperature 97.6 F L Temperature Source Temporal Pulse Rate 70 64 Respiratory Rate 17 20 H Respiratory Effort Normal Respiratory Pattern Normal Blood Pressure 192/82 H 156/80 H Blood Pressure Mean 118 105 Pulse Ox 100 93 Oxygen Delivery Method Room Air Room Air Positive well nourished and well developed General Appearance ED: well developed and NAD HEENT Reports TM's clear and moist mucous membranes normocephalic and atraumatic; Negative for trauma or tenderness Tympanic Membrane ED: Yes TM's clear Eyes PERRL and EOMs intact bilaterally General Eye ED: Negative for pale conjunctiva or scleral icterus Neck no lymphadenopathy, supple and no JVD General: Negative for tenderness Chest Wall inspection of chest normal and palpation of chest normal Chest: Negative for tenderness Resp normal respiratory effort and clear to auscultation bilaterally Effort and Inspection: Negative for respiratory distress or pain with movement Auscultation: Negative for rhonchi, wheezes or diminished lung sounds Cardio regular rate, regular rhythm, S1 normal heart sound, S2 normal heart sound and no murmurs Peripheral Pulses: pulses 2+ throughout GI normal to inspection, nondistended, normoactive bowel sounds, soft to palpation, non-tender, non-distended and no masses Back/Spine no CVA tenderness and no thoracic nor lumbar tenderness Extremity normal to inspection General Extremety ED: Negative for edema General Extremity: Negative for edema Neuro oriented x3, CN's II-XII intact bilaterally, no sensory deficits noted and gait normal Sensorium / Orientation: awake, alert, oriented to person, oriented to place and oriented to time Motor Exam: strength 5/5 throughout and strength abnormal Psych mental status grossly normal Skin no rashes or lesions noted and no wounds MDM MDM MDM Narrative Medical decision making narrative: Patient presents with elevated blood pressure and increased stress. IV line established. EKG obtained showed a sinus rhythm with rate of 64 bpm with no acute ST segment changes. CBC with differential white count 7.0 with hemoglobin 13.6 and platelets 216. Chemistries were unremarkable. BUN was 20 and creatinine 0.8. Troponin was normal at 7. Urinalysis was normal. While in the department I did give her a milligram of Ativan. Did not treat her blood pressure and it normalized to 138 over 80s. This point she is feeling much improved and calm. This point she will be discharged to home with a prescription for as needed Ativan. Advised to follow-up with her primary care physician within next 5 to 7 days. Instructed to keep a journal of her blood pressures daily. Lab Data Attestation: I reviewed the patient's lab results. Labs: Laboratory Results - last 24 hr 09/05/23 09/05/23 00:50 01:02 WBC 7.0 RBC 4.64 Hgb 13.6 Hct 40.4 MCV 87.1 MCH 29.3 MCHC 33.7 RDW Std Deviation 37.3 RDW Coeff of Seamus 11.7 Plt Count 216 MPV 9.9 Immature Gran % (Auto) 0.300 Neut % (Auto) 45.2 L Lymph % (Auto) 44.0 H Turner % (Auto) 7.5 Eos % (Auto) 2.0 Baso % (Auto) 1.0 Absolute Neuts (auto) 3.2 Absolute Lymphs (auto) 3.09 Nucleated RBC % 0 Sodium 140 Potassium 3.9 Chloride 106 Carbon Dioxide 29.0 Anion Gap 5 BUN 20 H Creatinine 0.80 Estim Creat Clear Calc 66.79 Est GFR (MDRD) Af Amer 89 Est GFR (MDRD) Non-Af 73 BUN/Creatinine Ratio 24.9 H Glucose 106 Calcium 10.2 H Troponin I High Sens 7 Urine Color Yellow Urine Clarity Clear Urine pH 7.0 Ur Specific Raymond 1.005 Urine Protein Negative Urine Glucose (UA) Normal Urine Ketones Negative Urine Occult Blood Negative Urine Nitrite Negative Urine Bilirubin Negative Urine Urobilinogen Normal Ur Leukocyte Esterase Negative Urine RBC 0 SEEN Urine WBC 0 SEEN Ur Squamous Epith Cells 0-5 SEEN Urine Bacteria 0 SEEN Urine Mucus 0 SEEN EKG Initial EKG: Attestation: I personally reviewed and interpreted this EKG as follows: Comments: Sinus rhythm with rate of 64 bpm with no acute ST segment changes Discharge Plan Triage Chief Complaint: Hypertension ED Provider: William Whaley Dx/Rx/DC Orders Clinical Impression: Anxiety, Hypertension Instructions: ED Anxiety Reaction, ED Hypertension, To Be Confirmed Prescriptions: New lorazepam [Ativan] 1 mg tablet 1 mg PO TID PRN (Reason: anxiety) Qty: 10 0RF No Action aspirin [Adult Low Dose Aspirin] 81 mg tablet,delayed release (DR/EC) 81 mg PO DAILY Stool Softener 50 mg capsule 50 mg PO DAILY guaifenesin [Mucinex] 1,200 mg tablet extended release 12hr 1,200 mg PO BID PRN (Reason: Congestion) coenzyme Q10 [Co Q-10] 100 mg capsule 100 mg PO DAILY turmeric root extract 1,053 mg tablet 1,076 mg PO DAILY rosuvastatin [Crestor] 5 mg tablet 5 mg PO WE polyethylene glycol 3350 [Miralax] 17 gram/dose powder 4 g PO DAILY Fiber Gummies 2 gram tablet,chewable 4 g PO DAILY ascorbate calcium (vitamin C) 500 mg tablet 500 mg PO DAILY d-mannose 500 mg capsule PO glucosamine sulfate 1,000 mg capsule 2,000 mg PO DAILY Rx Instructions: administer with a meal vitamin B complex Capsule 1 cap PO DAILY calcium carbonate [Calcium 600] 600 mg calcium (1,500 mg) tablet 600 mg PO BID Qty: 90 3RF cholecalciferol (vitamin D3) 25 mcg (1,000 unit) capsule 1,000 unit PO BID ezetimibe 10 mg tablet See Rx Instructions .ROUTE .COMPLEX Qty: 90 3RF Dose Instruction: TAKE 1 TABLET EVERY DAY Rx Instructions: TAKE 1 TABLET EVERY DAY Primary Care Provider: Maryjane Wood Referrals: Maryjane Wood MD [Primary Care Provider] - 5-7 Days Print Language: [place] Disposition Disposition: Home, Self Care
[2023-09-05 01:09] LABS: Bacteria 0 SEEN /hpf (None Seen); Mucous, Urine 0 SEEN /hpf (<or=2+); Red Blood Cells-Urine 0 SEEN /hpf (0-5); White Blood Cells 0 SEEN /hpf (0-5)
[2023-09-05 01:10] LABS: Absolute Lymphocyte Count 3.09 X10^3/uL (0.83-4.51); Absolute Neutrophil Count 3.2 X10^3/uL (2.0-7.7); Basophil# 0.07 X10^3/uL; Eosinophil# 0.14 X10^3/uL; Hematocrit 40.4 % (37-47); Hemoglobin 13.6 g/dL (12.0-15.0); Lymphocyte # 3.09 X10^3/ul (0.83-4.51); Mean Corp Hgb Conc 33.7 g/dL (32-36); Mean Corpuscular Hgb 29.3 pg (27.0-32.0); Mean Corpuscular Volume 87.1 fL (81-99); Mean Platelet Vol. 9.9 fl (6.2-12.0); Monocyte# 0.53 X10^3/uL; Monocyte% 7.5 % (0-10); NRBC Flagged by Analyzer 0 % (0-5); Neutrophil # 3.17 X10^3/uL (2.7-7.7); Neutrophil % 45.2 % (47-70); Platelet Count 216 K/mm3 (150-450); RBC Distribution Width CV 11.7 % (11.6-14.6); RBC Distribution Width SD 37.3 fl (35.1-43.9); Red Blood Count 4.64 M/mm3 (4.2-5.4)
[2023-09-05 01:11] LABS: Color, Urine Yellow (Yellow); Glucose, Dipstick Normal (Normal); Ketone-Dipstick Negative (Negative); Leukocyte Esterase-Dipstick Negative /ul (Negative); Nitrite-Dipstick Negative (Negative); Occult Blood-Urine Negative /ul (Negative); Protein-Dipstick Negative (Negative); Specific Gravity, Urine 1.005 (1.002-1.030); Urine Bilirubin Dipstick Negative (Negative); Urine Clarity Clear (Clear); Urine Urobilinogen Normal (Normal)
[2023-09-05] MEDS: LORazepam 2 MG/ML Syringe 1 MG IV (01:19)
[2023-09-05 01:29] VITALS: BP 156/80; PULSE 64; RESP 20; O2SAT 93
[2023-09-05 01:52] LABS: Anion Gap 5 (5-15); BUN 20 mg/dL (7-18); BUN/Creat Ratio 24.9 RATIO (10-20); Calcium,Total 10.2 mg/dL (8.5-10.1); Chloride 106 mmol/L (98-107); EST Glomerular Filtration Rate 73 mL/min (>60); Est Glom Filt Rate - Afr Amer 89 mL/min (>60); Estimated Creatinine Clearance 66.79 ml/min; Glucose 106 mg/dL (74-106); Potassium 3.9 mmol/L (3.5-5.1); Sodium Level 140 mmol/L (136-145); Troponin-I HS 7 pg/mL (3.0-54.0)
[2023-09-05 02:04] LABS: Squamous Epithelial Cells - UA 0-5 SEEN /hpf (5-10)
[2023-09-05 02:19] VITALS: BP 129/75; PULSE 62; RESP 16; TEMP 36.8; O2SAT 98
== END 2023-09-05 02:20 | disposition home or self-care (01) ==
PROVIDERS: Emergency Provider Emergency Medicine; PCP Internal Medicine; Visit Provider Emergency Medicine
DX: F41.9 Anxiety disorder, unspecified (principal); I10 Essential (primary) hypertension; E78.5 Hyperlipidemia, unspecified; Z79.82 Long term (current) use of aspirin; Z86.16 Personal history of COVID-19; Z87.891 Personal history of nicotine dependence
CPT/HCPCS: 80048; 81001; 84484; 85025; 93005; 96374; 99283; A4216

== ENCOUNTER → 2023-09-18 | Outpatient (CLI) | payer MEDICARE, OTHER, SELFPAY ==
--- NOTE | 2023-09-18 13:44 | CDU_ITS ---
Reason For Study: S/P Rt CEA Rt. Velocities/BP Lt. Velocities/BP Prox CCA 74.9/13.5 cm/sec. Prox CCA 77.8/13.5 cm/sec. Mid CCA 57.9/11.6 cm/sec. Mid CCA 65.5/11.6 cm/sec. Dist CCA 67.4/14.5 cm/sec. Dist CCA 64.5/12.6 cm/sec. Prox ICA 44.7/9.7 cm/sec. Prox ICA 106/23.7 cm/sec. Mid ICA 54.1/15.4 cm/sec. Mid ICA 117.4/22.5 cm/sec. Dist ICA 69.2/23 cm/sec. Dist ICA 87.6/22.5 cm/sec. Rt. ICA/CCA = 1.20. Lt. ICA/CCA = 1.79. Prox ECA 85.3/6 cm/sec. Prox ECA 75.9/6 cm/sec. Lt. Vert. 66.7/17.6 cm/sec. Right Extracranial There is homogeneous, smooth atherosclerotic plaque noted in the right common carotid artery. There is heterogeneous, irregular atherosclerotic plaque noted in the right internal carotid artery. There is intimal thickening but no significant atherosclerotic plaque noted in the right external carotid artery. Bidirectional flow noted in the right vertebral artery. Left Extracranial There is homogeneous, smooth atherosclerotic plaque noted in the left common carotid artery. There is heterogeneous, irregular atherosclerotic plaque noted in the left internal carotid artery. There is intimal thickening but no significant atherosclerotic plaque noted in the left external carotid artery. Antegrade flow is noted in the left vertebral artery. Procedure Carotid Duplex 29096. This is a Carotid Duplex examination using B-mode, color flow and specral Doppler. Exam performed in department. VL/Carotid Duplex Ultrasound Interpretation Summary Mild (<50%) stenosis right extracranial internal carotid. Mild (<50%) stenosis left extracranial internal carotid. The Right vertebral flow is bidirectional. The Left vertebral is patent and antegrade. Ordering Physician: Cindy Gardiner Referring Physician: Maryjane Wood Performed By: Blanca Covarrubias RVT
== END | disposition home or self-care (01) ==
LOC: CVS 13:44
PROVIDERS: PCP Internal Medicine; Referring Provider Physician Assistant; Visit Provider Physician Assistant
DX: Z48.812 Encounter for surgical aftercare following surgery on the circulatory system (principal); I65.21 Occlusion and stenosis of right carotid artery; Z98.890 Other specified postprocedural states
CPT/HCPCS: 93880

== ENCOUNTER → 2023-09-26 | Outpatient (CLI) | payer MEDICARE, OTHER, SELFPAY ==
--- NOTE | 2023-09-26 13:56 | NEURO ---
NCS and/or EMG Patient Report Ordering Doctor: Arnoldo Lazaro DATE OF SERVICE: 09/26/23 Katie presents with complaints of an aching pain in the right knee. She reports numbness in both feet. Electrodiagnostic findings: Right peroneal motor nerve demonstrates normal distal latency, amplitude and conduction velocity. Left peroneal motor nerve demonstrates normal distal latency, amplitude and conduction velocity. Tibial motor responses within normal limits bilaterally. Prolonged peroneal and tibial F?waves prolonged H?reflux bilaterally. Prolonged right sural latency is noted borderline prolonged left sural latency. Needle EMG testing was performed in the lower limbs. All muscles tested showed no evidence of denervation with normal motor unit action potentials. Electrodiagnostic impression: This is an abnormal study in the lower limbs 1. 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 2. There is no electrodiagnostic evidence for lumbosacral radiculopathy. Multi Select Codes Neurology Neurology Interp Codes: 16210-37 Musc test done w/n test comp (interp) (2) and 83739-21 Nrv cndj test 9-10 studies (interp)
== END | disposition home or self-care (01) ==
LOC: PSN 11:53
PROVIDERS: PCP Internal Medicine; Referring Provider Orthopaedic Surgery; Visit Provider Orthopaedic Surgery
DX: M51.36 Other intervertebral disc degeneration, lumbar region (principal); M48.061 Spinal stenosis, lumbar region without neurogenic claudication; M54.16 Radiculopathy, lumbar region
CPT/HCPCS: 95886; 95911

== ENCOUNTER → 2023-10-04 | Outpatient (CLI) | payer MEDICARE, OTHER, SELFPAY ==
[2023-10-04 15:21] LABS: Anion Gap 6 (5-15); BUN 19 mg/dL (7-18); BUN/Creat Ratio 23.6 RATIO (10-20); Chloride 102 mmol/L (98-107); EST Glomerular Filtration Rate 73 mL/min (>60); Est Glom Filt Rate - Afr Amer 89 mL/min (>60); Glucose 103 mg/dL (74-106); Potassium 4.5 mmol/L (3.5-5.1); Sodium Level 137 mmol/L (136-145)
[2023-10-04 15:23] LABS: Hemoglobin A1c 5.5 % (3.8-5.6)
[2023-10-04 15:48] LABS: Vitamin B12 613 pg/mL (211-911)
== END | disposition home or self-care (01) ==
LOC: BIMLAB 14:14
PROVIDERS: Nurse Practitioner; PCP Internal Medicine; Referring Provider Internal Medicine; Visit Provider Internal Medicine
DX: G62.9 Polyneuropathy, unspecified (principal); I10 Essential (primary) hypertension; Z79.899 Other long term (current) drug therapy
CPT/HCPCS: 36415; 80048; 82607; 83036

== ENCOUNTER → 2023-11-02 | Outpatient (CLI) | payer MEDICARE, OTHER, SELFPAY ==
[2023-11-02 12:45] LABS: Anion Gap 5 (5-15); BUN 11 mg/dL (7-18); BUN/Creat Ratio 13.7 RATIO (10-20); Calcium,Total 10.3 mg/dL (8.5-10.1); Chloride 108 mmol/L (98-107); EST Glomerular Filtration Rate 74 mL/min (>60); Est Glom Filt Rate - Afr Amer 89 mL/min (>60); Glucose 99 mg/dL (74-106); Potassium 4.3 mmol/L (3.5-5.1); Sodium Level 141 mmol/L (136-145)
== END | disposition home or self-care (01) ==
LOC: BIMLAB 10:55
PROVIDERS: PCP Internal Medicine; Referring Provider Internal Medicine; Visit Provider Internal Medicine
DX: I10 Essential (primary) hypertension (principal)
CPT/HCPCS: 36415; 80048

== ENCOUNTER → 2024-01-31 | Outpatient (CLI) | payer MEDICARE, OTHER, SELFPAY ==
[2024-01-31 16:56] LABS: ALB/GLOB Ratio 1.1 RATIO (0.9-2.4); AST(SGOT) 21 U/L (15-37); Alanine Aminotransfer ALT/SGPT 31 U/L (13-56); Alkaline Phosphatase 65 U/L (45-117); Anion Gap 4 (5-15); BUN 17 mg/dL (7-18); BUN/Creat Ratio 21.7 RATIO (10-20); Calcium,Total 10.3 mg/dL (8.5-10.1); Chloride 107 mmol/L (98-107); Cholesterol 207 mg/dL (200); Creatinine, Serum 0.78 mg/dL (0.55-1.02); EST Glomerular Filtration Rate 75 mL/min (>60); Est Glom Filt Rate - Afr Amer 91 mL/min (>60); Globulin 3.6 g/dL (2.2-4.2); Glucose 84 mg/dL (74-106); High Density Lipoprotein 57 mg/dL; Potassium 4.6 mmol/L (3.5-5.1); Protein, Total 7.6 g/dL (6.4-8.2); Sodium Level 139 mmol/L (136-145); Triglycerides 109 mg/dL; Very Low Density Lipoprotein 22 mg/dL (5-40)
== END | disposition home or self-care (01) ==
LOC: BIMLAB 14:24
PROVIDERS: PCP Internal Medicine; Referring Provider Internal Medicine; Visit Provider Internal Medicine
DX: I10 Essential (primary) hypertension (principal); E78.2 Mixed hyperlipidemia
CPT/HCPCS: 36415; 80053; 80061

== ENCOUNTER → 2024-02-01 | Outpatient (CLI) | payer MEDICARE, OTHER, SELFPAY ==
[2024-02-01 12:28] LABS: PTHIN 69.4 pg/mL (18.4-80.1)
[2024-02-01 14:25] LABS: Vitamin D,25 Hydroxy 24.9 ng/mL
== END | disposition home or self-care (01) ==
LOC: BIMLAB 09:50
PROVIDERS: PCP Internal Medicine; Referring Provider Internal Medicine; Visit Provider Internal Medicine
DX: E83.52 Hypercalcemia (principal)
CPT/HCPCS: 36415; 82306; 83970

== ENCOUNTER → 2024-06-02 | Outpatient (CLI) | payer MEDICARE, OTHER, SELFPAY ==
[2024-06-02 15:24] LABS: Absolute Lymphocyte Count 2.33 X10^3/uL (0.83-4.51); Absolute Neutrophil Count 2.8 X10^3/uL (2.0-7.7); Basophil# 0.05 X10^3/uL; Basophil% 0.9 % (0-1); Eosinophil# 0.12 X10^3/uL; Eosinophils% 2.1 % (0-5); Hematocrit 37.9 % (37-47); Hemoglobin 12.8 g/dL (12.0-15.0); Lymphocyte # 2.33 X10^3/ul (0.83-4.51); Lymphocyte % 41.2 % (19-41); Mean Corp Hgb Conc 33.8 g/dL (32-36); Mean Corpuscular Hgb 29.9 pg (27.0-32.0); Mean Corpuscular Volume 88.6 fL (81-99); Mean Platelet Vol. 10.1 fl (6.2-12.0); Monocyte% 7.1 % (0-10); NRBC Flagged by Analyzer 0 % (0-5); Neutrophil # 2.75 X10^3/uL (2.7-7.7); Neutrophil % 48.5 % (47-70); Platelet Count 223 K/mm3 (150-450); RBC Distribution Width CV 12.3 % (11.6-14.6); RBC Distribution Width SD 39.7 fl (35.1-43.9); Red Blood Count 4.28 M/mm3 (4.2-5.4); White Blood Count 5.7 K/mm3 (4.4-11.0)
[2024-06-02 15:54] LABS: Anion Gap 9 (5-15); BUN 17 mg/dL (4-19); Calcium,Total 10.8 mg/dL (7.6-11.0); Carbon Dioxide 25.3 mmol/L (21.0-32.0); Chloride 105 mmol/L (98-108); Creatinine, Serum 0.69 mg/dL (0.70-1.20); EST Glomerular Filtration Rate 88 (>60); Glucose 86 mg/dL (70-99); Potassium 4.4 mmol/L (3.3-5.1); Sodium Level 139 mmol/L (133-145); Vitamin D,25 Hydroxy 24.5 ng/mL (30-100)
== END | disposition home or self-care (01) ==
LOC: BIMLAB 14:16
PROVIDERS: PCP Internal Medicine; Referring Provider Internal Medicine; Visit Provider Internal Medicine
DX: I10 Essential (primary) hypertension (principal); M85.80 Other specified disorders of bone density and structure, unspecified site
CPT/HCPCS: 36415; 80048; 82306; 85025

== ENCOUNTER → 2024-06-10 | Outpatient (CLI) | payer MEDICARE, OTHER, SELFPAY ==
--- NOTE | 2024-06-10 10:06 | BD_ITS ---
PROCEDURE: DEXA BONE DENSITY STUDY 06/10/2024 REASON FOR EXAM: POST MENOPAUSAL F, age 78 y/o . TECHNIQUE: DXA scan of sites with data reported below. Scanner utilized: [employer] W. REFERENCE LINKS: ISCD Adult Positions COMPARISON: DEXA scan 09/06/2021 FINDINGS: BMD and T-SCORES Lumbar spine: 0.887 g/cm2, T-score -1.5 Levels: L1 through L4 Left femoral neck: 0.655 g/cm2, T-score -1.7 Femoral neck comparison data not recommended for monitoring change. Prior T-score -1.6 Left total hip: 0.840 g/cm2, T-score -0.8 Change from prior: Statistically significant BMD decrease of 7.3%. Right femoral neck: 0.704 g/cm2, T-score -1.3 Femoral neck comparison data not recommended for monitoring change. Prior T-score -0.8 Right total hip: 0.865 g/cm2, T-score -0.6 Change from prior: Statistically significant BMD decrease of 7.5%. The World Health Organization has defined the following categories based on bone density: Normal bone density: T-score equal to or greater than -1.0 Osteopenia: T-score between -1.0 and -2.5 Osteoporosis: T-score equal to or less than -2.5 FRAX (or Comparable) Fracture Risk Assessment: 10 Year Probability of Fracture: Major Osteoporotic Fracture: 32% Hip Fracture: 18% (Note: FRAX is not to be reported in setting of normal range bone density, osteoporosis on DEXA, known history of osteoporosis, prior osteoporotic hip or vertebral fracture, or for any patient undergoing pharmacological treatment for bone loss.) The National Osteoporosis Foundation (NOF) recommends pharmacological treatment for patients with a FRAX 10-year risk of 3% or higher for a hip fracture, or 20% or higher for a major osteoporotic fracture, to prevent osteoporosis and reduce fracture risk. The patient does meet the pharmacological treatment recommendations for prevention of osteoporosis. BD/Dexa Bone Density Study IMPRESSION: OSTEOPENIA. Reading Location: [facility]
== END | disposition home or self-care (01) ==
LOC: OPBD 10:01
PROVIDERS: PCP Internal Medicine; Referring Provider Internal Medicine; Visit Provider Internal Medicine
DX: Z78.0 Asymptomatic menopausal state (principal)
CPT/HCPCS: 77080

== ENCOUNTER → 2024-07-01 | Outpatient (CLI) | payer MEDICARE, OTHER, SELFPAY ==
--- NOTE | 2024-07-01 15:01 | CT_ITS ---
PROCEDURE: LIMITED CHEST CT CARDIAC ONLY REASON FOR EXAM: CARDIAC RISK ASSESEMENT TECHNIQUE: Supine chest CT without contrast. One or more dose reduction techniques were used (e.g., Automated exposure control, adjustment of the mA and/or kV according to patient size, use of iterative reconstruction technique). COMPARISON: None FINDINGS: Hardware: None Lymph nodes: Small benign-appearing mediastinal lymph nodes. Heart and Vasculature: Normal heart size. No pericardial effusion. Atherosclerotic calcifications of the thoracic aorta. Thoracic aorta and pulmonary arteries have normal contours; noncontrast technique limits evaluation. Coronary Artery Calcifications: Present Lungs and Airways: Mild linear scarring at the lung bases. Pleura: No pleural effusion. Upper Abdomen: Small hiatal hernia. Bones: Degenerative changes of the thoracic spine. CT/Limited Chest CT Cardiac Only IMPRESSION: Coronary artery calcification (CAC) is is present Reading Location: [place] [id number]
--- NOTE | 2024-07-01 17:02 | CA.SCORE ---
Calcium Scoring Date of Study:: 07/01/24 Indications Indications: family history Coronary Calcium Scoring: High-resolution Computed Tomographic imaging of the chest was performed on [07/01/24 ], with particular attention paid to the coronary arteries. Images from the examination were analyzed for the presence and extent of coronary artery calcification , using coronary calcium quantification software. The patient tolerated the procedure well and there were no complications. The results of the coronary calcification analysis are provided below. Findings Coronary Artery Left Main (LM): 0 Left Anterior Descending (LAD): 148 Left Circumflex (LCX): 0 Right Coronary Artery (RCA): 0 Total Agatston Score: 148 Percentile Rankin-75% Calcium Scoring Interpretation: Different methods to categorize the overall amount of coronary plaque. Overall amount CAC SIS Visual of coronary plaque P1 Mild -100 <2 1-2 vessels with mild amount of plaque P2 Moderate 101-300 3-4 1-2 vessels with moderate amount, 3 vessels with mild amount of plaque P3 Severe 301-999 5-7 3 vessels with moderate amount, 1 vessel with severe amount of plaque P4 Extensive >1000 >8 2-3 vessels with severe amount of plaque Calcium Score: Mild: 1-2 vessels w/mild amount of plaque Conclusion: Mild atherosclerotic plaque in the LAD
== END | disposition home or self-care (01) ==
LOC: CT 14:45
PROVIDERS: PCP Internal Medicine; Referring Provider Internal Medicine; Visit Provider Internal Medicine
DX: I10 Essential (primary) hypertension (principal); E78.2 Mixed hyperlipidemia; I25.10 Atherosclerotic heart disease of native coronary artery without angina pectoris
CPT/HCPCS: 75571; 76380

== ENCOUNTER → 2024-07-21 | Outpatient (CLI) | payer MEDICARE, OTHER, SELFPAY ==
--- NOTE | 2024-07-21 10:51 | STRESSREP_ITS ---
Stress Test Report Date: 07/21/2024 Procedure: Exercise tolerance test Indications: Chest pain Consent: Per the patient Procedure: The patient exercised on a Harrison protocol for 5 minutes achieving a peak heart rate of 164 bpm (116% predicted maximal heart rate) with a peak blood pressure 188/70 mmHg and a peak MET capacity of approximately 7.0 MET's. The baseline ECG demonstrated normal sinus rhythm with no ischemic changes. The peak exercise ECG did not show any ischemic changes. There were no cardiac dysrhythmias pretest, during exercise, or recovery. The functional capacity was considered average for age. The patient had no complaints of chest discomfort during exercise or recovery. The examination was discontinued secondary to target heart rate being achieved and dyspnea. Impression: 1. Technically adequate (percent predicted maximal heart rate greater than 85%) exercise tolerance test 2. Peak exercise ECG with no ischemic changes 3. There were no cardiac dysrhythmias during exercise or recovery This note was generated with [employer] software. It may contain incorrect words, spelling, and punctuation that were not noted in checking the note before signing.
== END | disposition home or self-care (01) ==
PROVIDERS: PCP Internal Medicine; Referring Provider Internal Medicine; Visit Provider Internal Medicine
DX: R07.9 Chest pain, unspecified (principal); R30.0 Dysuria; R93.1 Abnormal findings on diagnostic imaging of heart and coronary circulation
CPT/HCPCS: 87077; 87086; 87088; 93017

== ENCOUNTER → 2024-07-31 | Outpatient (CLI) | payer MEDICARE, OTHER, SELFPAY ==
--- OUTSIDE RECORDS SUMMARY | 2024-07-31 17:06 | XMS RPT_ITS | CCD ---
Author Organization [facility] Care Team Providers Care Icu Nurse Name Role Phone Dr. Oscar Servin Primary Care Provider Dr. Mateo Hayes Attending Provider Dr. Mateo Hayes Referring Provider Dr. Oscar Servin Referring Provider Taylor Talbot Attending Provider Unavailable Dr. Mateo Hayes Other Provider Oscar Servin MD Primary Care Provider Dr. Kareem Wood Primary Care Provider [phone] Dr. Kareem Wood Referring Provider [phone] DANNIELLE Greene Attending Provider Unavailab Dr. Kareem George Primary Care Provider [phone] Dr. Kareem Wood Referring Provider [phone] DANNIELLE Arce Attending Provider Dr. Kareem Wood Attending Provider [phone] Kareem Wood MD Primary Care Provider [phone] SUSANNE HOLT Attending Unavail able KAREEM WOOD Primary Care Unavailable KAREEM WOOD Primary Care Unavailable SUSANNE HOLT Referring Unavail able KAREEM WOOD Primary Care Unavailable SUSANNE HOLT Attending Unavail able Dr. Kareem Wood Primary Care Provider [phone] Dr. Kareem Wood Referring Provider DANNIELLE Cooper Attending Provider Dr. Kareem Wood Primary Care Provider [phone] Dr. Kareem Wood Attending Provider [phone] Dr. Kareem Wood Referring Provider [phone] Dr. Mateo Hayes Attending Provider Dr. Walker Gaston Referring Provider Israel JOSE, Dr. Wesley Primary Care Provider Israel JOSE, Dr. Wesley Attending Provider [phone] Israel JOSE, Dr. Wesley Referring Provider [phone] Israel JOSE, Dr. Wesley Other Provider [phone] Donn JOSE, Dr. Joiner Attending Provider [phone] Edgar SOTO-CAndie Attending Provider Wilbert JOSE, Dr. Ramos Attending Provider Porter Saldaña Attending Unavailable Oleghe, Efewongbe Primary Care Unavailable Cindy Gardiner Referring Unavailable Oleghe, Efewongbe Referring Unavailable Oleghe, Efewongbe Attending Unavailable Oleghe, Efewongbe Primary Care Unavailable Oleghe, Efewongbe Referring Unavailable Oleghe, Efewongbe Primary Care Unavailable Oleghe, Efewongbe Attending Unavailable Oleghe, Efewongbe Primary Care Unavailable Lazaro, Arnoldo Referring Unavailable Lazaro, Arnoldo Attending Unavailable Oleghe, Efewongbe Referring Unavailable Oleghe, Efewongbe Primary Care Unavailable Oleghe, Efewongbe Attending Unavailable Oleghe, Efewongbe Attending Unavailable Oleghe, Efewongbe Referring Unavailable Oleghe, Efewongbe Primary Care Unavailable Oleghe, Efewongbe Referring Unavailable Oleghe, Efewongbe Consulting Unavailable Oleghe, Efewongbe Primary Care Unavailable Rhys Pop Attending Unavailable Oleghe, Efewongbe Referring Unavailable Rachel Atkins Attending Unavailable Oleghe, Efewongbe Consulting Unavailable Oleghe, Efewongbe Primary Care Unavailable Oleghe, Efewongbe Attending Unavailable Oleghe, Efewongbe Referring Unavailable Oleghe, Efewongbe Primary Care Unavailable Oleghe, Efewongbe Referring Unavailable Oleghe, Efewongbe Primary Care Unavailable Oleghe, Efewongbe Attending Unavailable Oleghe, Efewongbe Primary Care Unavailable Gardiner, Cindy Referring Unavailable Gardiner Cindy Attending Unavailable Oleghe, Efewongbe Primary Care Unavailable Oleghe, Efewongbe Referring Unavailable Oleghe, Efewongbe Attending Unavailable Oleghe, Efewongbe Primary Care Unavailable William Whaley Attending Unavailable Oleghe, Efewongbe Referring Unavailable Oleghe, Efewongbe Primary Care Unavailable Oleghe, Efewongbe Attending Unavailable Oleghe, Efewongbe Referring Unavailable Oleghe, Efewongbe Attending Unavailable Oleghe, Efewongbe Primary Care Unavailable Oleghe, Efewongbe Referring Unavailable Gardiner Cindy Attending Unavailable Oleghe, Efewongbe Referring Unavailable Oleghe, Efewongbe Attending Unavailable Oleghe, Efewongbe Referring Unavailable Oleghe, Efewongbe Primary Care Unavailable Justin Wise Attending Unavailable Oleghe, Efewongbe Referring Unavailable Oleghe, Efewongbe Attending Unavailable Oleghe, Efewongbe Primary Care Unavailable Oleghe, Efewongbe Referring Unavailable Oleghe, Efewongbe Attending Unavailable Oleghe, Efewongbe Primary Care Unavailable Oleghe, Efewongbe Attending Unavailable Oleghe, Efewongbe Primary Care Unavailable Oleghe, Efewongbe Referring Unavailable Oleghe, Efewongbe Primary Care Unavailable Andie Hernández Attending Unavailable Oleghe, Efewongbe Referring Unavailable Destinee Partida Attending Unavailable Oleghe, Efewongbe Primary Care Unavailable Oleghe, Efewongbe Referring Unavailable Oleghe, Efewongbe Primary Care Unavailable Justin Wise Attending Unavailable Oleghe, Efewongbe Referring Unavailable Oleghe, Efewongbe Attending Unavailable Oleghe, Efewongbe Primary Care Unavailable Mary Mitchell Attending Unavailable Oleghe, Efewongbe Primary Care Unavailable Arnoldo Lazaro Referring Unavailable Arnoldo Lazaro Consulting Unavailable Kareem Wood Referring Unavailable Kareem Wood Attending Unavailable Kareem Wood Primary Care Unavailable Elvin Arce Attending Provider Allergies Allergy Classification Reported Allergen(s) Allergy Type Date of Onset Reaction(s) Facility (18 sources) Adhesive agent; Translations: [ADHESIVE] Propensity to adverse reactions 1 Other: See Comments [facility] Work Phone: (17 sources) Amoxicillin; Translations: [AMOXICILLIN] Drug Allergy 9 Rash [facility] Work Phone: (17 sources) Simvastatin; Translations: [SIMVASTATIN] Drug Allergy 8 Intolerance [facility] Work Phone: (7 sources) rosuvastatin; Translations: [ROSUVASTATIN] Drug Allergy 1 Myalgia [facility] Work Phone: (4 sources) Dexamethasone Drug Allergy [address] [facility] Comment on above: hematuria, painful u rination (1 source) Amoxicillin Drug Allergy [address] [facility] Repository (1 source) Dexamethasone Drug Allergy [address] [facility] Rep[facility] (1 source) Simvastatin Drug Allergy [address] [facility] Medications Current Medications Medication Drug Class(es) Dates Sig (Normalized) Sig (Original) aspirin 81 mg delayed release oral tablet (16 sources) Platelet Aggregation Inhibitor, Nonsteroidal Anti-inflammatory Drug Start: 06-03-2018 Aspirin (Adult Low Dose Aspirin) 81 mg tablet,delayed release (DR/EC) Active 81 mg PO DAILY June 03, 2018 12:00am Start: 03-11-2009 ASPIRIN 81 MG TAB Take one(1) tablet daily. 0 03/11/2009 Active Comment on above: Take one(1) tablet d aily. calcium ascorbate 500 mg oral tablet (3 sources) Start: 07-30-2023 take 1 tablet by mouth once daily Ascorbate Calcium (Vitamin C) 500 mg tablet Active 500 mg PO DAILY July 30, 2023 12:00am calcium carbonate 1500 mg oral tablet (11 sources) Start: 06-19-2024 take 1 tablet by mouth every other day Calcium Carbonate (Calcium 600) 600 mg calcium (1,500 mg) tablet Active 600 mg PO .qod June 19, 2024 4:41pm Start: 07-04-2022 End: 06-19-2024 take 1 tablet by mouth twice daily Calcium Carbonate (Calcium 600) 600 mg calcium (1,500 mg) tablet Discontinued 600 mg PO TWICE A DAY 90 July 04, 2022 12:00am June 19, 2024 4:41pm cholecalciferol 0.025 mg oral capsule (20 sources) Vitamin D Start: 06-19-2024 take 1 capsule by mouth twice daily Cholecalciferol (Vitamin D3) 25 mcg (1,000 unit) capsule Active 2000 U PO TWICE A DAY June 19, 2024 4:40pm Start: 07-04-2022 End: 06-19-2024 take 1 capsule by mouth twice daily Cholecalciferol (Vitamin D3) 25 mcg (1,000 unit) capsule Discontinued 1000 U PO TWICE A DAY July 04, 2022 9:50am June 19, 2024 4:41pm Start: 12-11-2018 End: 07-04-2022 take 1 capsule by mouth once daily Cholecalciferol (Vitamin D3) 1,000 unit capsule Discontinued 1000 U PO DAILY December 11, 2018 12:00am July 04, 2022 9:51am Comment on above: Take 1,000 Units by mouth once daily. docusate sodium 50 mg oral capsule (16 sources) Start: 12-11-2018 take 1 capsule by mouth once daily Docusate Sodium (Stool Softener) 50 mg capsule Active 50 mg PO DAILY December 11, 2018 12:00am Start: 04-25-2010 take 1 capsule by [facility] twice daily docusate sodium (STOOL SOFTENER) 100 mg ORAL capsule Take 1 capsule by mouth twice daily. 0 04/25/2010 Active Comment on above: Take 1 capsule by [facility] twice daily. inulin 2000 mg chewable tablet (4 sources) Start: 3 take 1 tablet by mouth once daily Inulin (Fiber Gummies) 2 gram tablet,chewable Active 4 g PO DAILY January 26, 2023 1:00am meloxicam 15 mg oral tablet (3 sources) Nonsteroidal Anti-inflammatory Drug Start: 4 take 1 tablet by mouth once daily as needed for pain Meloxicam 15 mg tablet Active 15 mg PO daily as needed for pain 90 January 31, 2024 1:00am May take daily x 5 days as needed for pain polyethylene glycol 3350 59969 mg powder for oral solution (4 sources) Osmotic Laxative Start: 3 Polyethylene Glycol 3350 (Miralax) 17 gram/dose powder Active 4 g PO DAILY January 26, 2023 1:00am Turmeric Root Extract (13 sources) Start: 2 take 1076 mg by mouth once daily Turmeric Root Extract Active 1076 MG PO DAILY August 19, 2021 12:00am Start: 08-19-2021 take 1076 mg by mout h once daily Turmeric Root Extract Active 1076 MG PO DAILY August 18, 2021 11:00pm Start: 05-18-2021 take 1076 mg by mout h three times daily Turmeric Root Extract Active 1076 MG PO THREE TIMES A DAY May 18, 2021 3:33pm Start: 05-18-2021 End: 08-19-2021 take 1076 mg by mouth three times daily Turmeric Root Extract Discontinued 1076 MG PO THREE TIMES A DAY May 18, 2021 12:00am August 19, 2021 3:01pm Start: 05-18-2021 End: 08-19-2021 take 1076 mg by mouth three times daily Turmeric Root Extract Discontinued 1076 MG PO THREE TIMES A DAY May 17, 2021 11:00pm August 19, 2021 2:01pm Turmeric Root Extract 1,053 mg tablet (6 sources) Start: 08-19-2021 take 1 tablet by mouth once daily Turmeric Root Extract 1,053 mg tablet Active 1076 mg PO DAILY August 19, 2021 12:00am Start: 05-18-2021 End: 08-19-2021 take 1 tablet by mouth three times daily Turmeric Root Extract 1,053 mg tablet Discontinued 1076 mg PO THREE TIMES A DAY May 18, 2021 12:00am August 19, 2021 3:01pm ubidecarenone 100 mg oral ca psule (19 sources) Start: 08-19-2021 Coenzyme Q10 ( Co Q-10) 100 mg capsule Active 100 mg PO DAILY August 19, 2021 12:00am Start: 06-03-2018 End: 08-19-2021 Coenzyme Q10 (Ultra Coq10) 7 5 mg capsule Discontinued 75 mg PO DAILY June 03, 2018 12:00am August 19, 2021 3:00pm Vitamin B Complex (13 sources) Start: 05-17-2021 take 1 capsule by mo uth once daily Vitamin B Complex Active 1 CAP PO DAILY May 17, 2021 12:14pm Start: 05-17-2021 take 1 capsule by mouth once d aily Vitamin B Complex Active 1 CAP PO DAILY May 17, 2021 12:00am Start: 05-17-2021 take 1 capsule by mouth once d aily Vitamin B Complex Active 1 CAP PO DAILY May 16, 2021 11:00pm take 1 capsule by mouth once brett ly vitamin B complex (B COMPLEX ORAL) Take 1 capsule by mouth once daily. 0 Active Comment on above: Take 1 capsule by mo uth once daily. Vitamin B Complex Capsule (3 sources) Start: 05-17-2021 Vitamin B Complex Capsule Active 1 NMA PO DAILY May 17, 2021 12:00am Completed/Discontinued Medications Medication Drug Class(es) Dates Sig (Normalized) Sig (Original) azithromycin 250 mg oral tablet (5 sources) Macrolide Antimicrobial Start: 11-15-2022 End: 11-15-2022 Azithromycin 250 mg tablet Discontinued 250 mg PO daily November 15, 2022 12:00am November 15, 2022 10:18am 2 tablets today, then 1 tablet daily on days 2 through 11 cephalexin 500 mg oral capsule (8 sources) Cephalosporin Antibacterial Start: 08-25-2022 End: 09-01-2022 take 1 capsule by mouth three times daily Cephalexin 500 mg capsule Discontinued 500 mg PO THREE TIMES A DAY 01 09August 25, 2022 12:00am August 31, 2022 12:00am September 01, 2022 12:04am D-Mannose (3 sources) Start: 07-30-2023 End: 01-31-2024 take 1 capsule by mouth once D-Mannose 500 mg capsule Discontinued mg PO July 30, 2023 12:00am January 31, 2024 3:00pm dexamethasone 6 mg oral tablet (5 sources) Corticosteroid Start: 11-15-2022 End: 01-26-2023 take 1 tablet by mouth once daily Dexamethasone 6 mg tablet Discontinued 6 mg PO DAILY November 15, 2022 12:00am January 26, 2023 3:47pm doxycycline hyclate 100 mg oral capsule (8 sources) Tetracycline-class Drug Start: 07-04-2022 End: 07-14-2022 take 1 capsule by mouth twice daily Doxycycline Hyclate 100 mg capsule Discontinued 100 mg PO TWICE A DAY 01 12July 04, 2022 12:00am July 13, 2022 12:00am July 14, 2022 12:03am ezetimibe 10 mg oral tablet (20 sources) Dietary Cholesterol Absorption Inhibitor Start: 09-03-2020 End: 07-18-2024 Ezetimibe 10 mg tablet Discontinued 0 .ROUTE .COMPLEX 90 July 17, 2024 1:47pm July 18, 2024 1:12pm TAKE 1 TABLET EVERY DAY Comment on above: Take 1 tablet by tyrone once daily. FIBER WELL (8 sources) Start: 08-21-2022 End: 01-26-2023 FIBER WELL Discontinued 2 {tbl} PO DAILY August 21, 2022 12:00am January 26, 2023 3:48pm 2 GUMMIES DAILY Start: 08-21-2022 End: 01-26-2023 take 2 tablets by mouth once daily FIBER WELL Discontinued 2 TABLET PO DAILY August 21, 2022 12:00am January 26, 2023 3:48pm 2 GUMMIES DAILY Start: 08-21-2022 take 2 tablets by mo [facility] once daily FIBER WELL Active 2 TABLET PO DAILY August 21, 2022 12:00am 2 GUMMIES DAILY Start: 08-21-2022 FIBER WELL Act richar PO DAILY August 21, 2022 12:00am 2 GUMMIES DAILY glucosamine sulfate 1000 mg oral capsule (3 sources) Start: 07-30-2023 End: 11-02-2023 take 2 capsules by mouth once daily Glucosamine Sulfate 1,000 mg capsule Discontinued 2000 mg PO DAILY July 30, 2023 12:00am November 02, 2023 10:17am administer with a meal 12 hr guaiFENesin 1200 mg extended release oral tablet (16 sources) Start: 12-11-2018 End: 11-02-2023 take 1 tablet by mouth twice daily as needed for congestion, then take 1 tablet by mouth every twelve hours as needed for congestion Guaifenesin (Mucinex) 1,200 mg tablet extended release 12hr Discontinued 1200 mg PO TWICE A DAY as needed for Congestion December 11, 2018 12:00am November 02, 2023 10:24am GUAIFENESIN SR O RAL Take by mouth as needed. 0 Active Comment on above: Take by mouth as nee ded. hydroCHLOROthiazide 12.5 mg / losartan potassium 100 mg oral tablet (3 sources) Thiazide Diuretic, Angiotensin 2 Receptor Sabas Start: End: Losartan-Hydrochlo rothiazide 100-12.5 mg tablet Discontinued 1 {tbl} PO daily February 27, 2024 1:00am March 07, 2024 1:19pm ibandronic acid 150 mg oral tablet (3 sources) Bisphosphonate Start: End: take 1 tablet by mouth every month Ibandronate 150 mg tablet Discontinued 150 mg PO EVERY MONTH June 19, 2024 12:00am July 19, 2024 12:58pm LORazepam 1 mg oral tablet (3 sources) Benzodiazepine Start: End: take 1 tablet by mouth three times daily as needed for anxiety Lorazepam (Ativan) 1 mg tablet Discontinued 1 mg PO THREE TIMES A DAY as needed for anxiety September 05, 2023 12:00am November 02, 2023 10:17am losartan potassium 100 mg oral tablet (20 sources) Angiotensin 2 Receptor Sabas Start: End: take 1 tablet by mouth once daily Losartan 100 mg tablet Discontinued 100 mg PO daily July 18, 2024 1:12pm July 21, 2024 7:53am Start: 09-27-2023 End: 02-27-2024 take 1 tablet by mouth once daily Losartan 50 mg tablet Discontinued 50 mg PO DAILY September 27, 2023 12:00am February 27, 2024 12:39pm Start: 09-13-2023 End: 11-02-2023 take 2 tablets by mouth once daily Losartan 25 mg tablet Discontinued 50 mg PO DAILY September 18, 2023 11:10am November 02, 2023 10:17am Start: 09-06-2023 End: 09-13-2023 take 1 tablet by mouth once daily Losartan 25 mg tablet Discontinued 25 mg PO DAILY September 06, 2023 12:00am September 13, 2023 2:00pm magnesium oxide 500 mg oral capsule (8 sources) Start: 08-21-2022 End: 01-26-2023 take 1 capsule by mouth once daily Magnesium Oxide 500 mg capsule Discontinued 500 mg PO DAILY August 21, 2022 12:00am January 26, 2023 3:49pm miSOPROStol 0.2 mg oral tablet (4 sources) Prostaglandin E1 Analog Start: 10-03-2022 miSOPROStol (CYTOTEC) 200 mcg tablet Take two tablets PO night before procedure and two tablets morning of procedure 4 tablet 0 10/03/2022 Active Comment on above: Take two tablets PO night before procedure and two tablets morning of procedure nitrofurantoin, macrocrystals 25 mg / nitrofurantoin, monohydrate 75 mg oral capsule (3 sources) Nitrofuran Antibacterial Start: 07-19-2024 End: 07-24-2024 take 1 capsule by mouth every twelve hours at mealtime Nitrofurantoin Monohyd/M-Cryst (Macrobid) 100 mg capsule Discontinued 100 mg PO Q12H 10 July 19, 2024 12:00am July 23, 2024 12:00am July 24, 2024 12:10am must administer with a meal/food 24 hr oxybutynin chloride 5 mg extended release oral tablet (12 sources) Cholinergic Muscarinic Antagonist Start: 08-21-2022 oxybutynin XL (DITROPAN XL) 5 mg 24 hr tablet Start: 08-21-2022 End: 07-30-2023 take 1 tablet by mouth once daily Oxybutynin Chloride 5 mg tablet extended release 24hr Discontinued 5 mg PO DAILY August 21, 2022 12:00am July 30, 2023 10:56am rosuvastatin calcium 5 mg oral tablet (20 sources) HMG-CoA Reductase Inhibitor Start: 08-21-2022 End: 01-31-2024 Rosuvastatin (Crestor) 5 mg tablet Discontinued 5 mg PO August 21, 2022 10:50am January 31, 2024 3:00pm Start: 05-17-2021 End: 11-10-2021 Rosuvastatin (Crestor) 5 mg Tablet Discontinued 5 mg PO May 17, 2021 12:00am November 10, 2021 8:03am Start: 05-07-2021 End: 08-21-2022 take 1 tablet by mouth once daily Rosuvastatin (Crestor) 5 mg tablet Discontinued 5 mg PO DAILY November 10, 2021 8:03am August 21, 2022 10:53am Start: 06-03-2018 End: 12-11-2018 take 1 tablet by mouth once daily Rosuvastatin (Crestor) 5 mg tablet Discontinued 5 mg PO DAILY June 03, 2018 12:00am December 11, 2018 10:22am Comment on above: Take 1 tablet by tyrone th daily at bedtime. As directed Turmeric extract (6 sources) take 1950 mg by mouth three times daily TURMERIC ORAL Take 1,950 mg by mouth three times daily. Turmeric Curcumin with bioperine 0 Active Comment on above: Take 1,950 mg by tyrone th three times daily. Turmeric Curcumin with bioperine ubidecarenone/vitamin E mixed (COQ10 SG 100 ORAL) (6 sources) ubidecarenone/vi tamin E mixed (COQ10 SG 100 ORAL) Take by mouth. 0 Active Comment on above: Take by mouth. Problems Active Problems Problem Classification Problem Date Documented Da te Episodic/Chronic Abdominal pain (2 sources) Right lower quadrant pain; Translations: [Abdominal pain, right lower quadrant] 03-09-2022 Episodic Anxiety disorders (3 sources) Anxiety; Translations: [Anxiety disorder, unspecified] 09-13-2023 Chronic Disorders of lipid metabolism (20 sources) Mixed hyperlipidemia; Translations: [Mixed hyperlipidemia] Onset: 10-27-2004 11-23-2015 Chronic Essential hypertension (20 sources) Hypertensive disorder; Translations: [Essential (primary) hypertension] Onset: 07-21-2024 08-21-2022 Chronic Genitourinary symptoms and ill-defined conditions (15 sources) Dysuria; Translations: [Dysuria] Onset: 07-19-2024 03-09-2022 Episodic Nonspecific chest pain (5 sources) Chest pain; Translations: [Chest pain, unspecified] Onset: 07-25-2024 07-02-2024 Episodic Nutritional deficiencies (6 sources) Vitamin D deficiency; Translations: [Vitamin D deficiency, unspecified] 06-19-2024 Chronic Occlusion or stenosis of precerebral arteries (12 sources) Carotid artery stenosis; Translations: [Occlusion and stenosis of unspecified carotid artery] Onset: 09-05-2023 Chronic Other aftercare (1 source) Patient encounter status; Translations: [Other longterm (current) drug therapy] Episodic Other bone disease and musculoskeletal deformities (6 sources) Osteopenia; Translations: [Other specified disorders of bone density and structure, unspecified site] 06-02-2024 Episodic Other bone disease and musculoskeletal deformities (6 sources) Osteopenia with high fracture risk; Translations: [Other specified disorders of bone density and structure, unspecified site] 06-19-2024 Episodic Other bone disease and musculoskeletal deformities (1 source) Other specified disorders of bone density and structure, unspecified site; Translations: [Other specified disorders of bone density and structure, unspecified site] Onset: 06-02-2024 Episodic Other circulatory disease (6 sources) Disorder of artery; Translations: [Other specified disorders of arteries and arterioles] Onset: 10-27-2004 09-26-2005 Chronic Other circulatory disease (9 sources) Elevated blood pressure; Translations: [Elevated blood-pressure reading, without diagnosis of hypertension] 08-19-2021 Episodic Other connective tissue disease (6 sources) Pain in lower limb; Translations: [Pain in leg, unspecified] 09-04-2023 Episodic Other connective tissue disease (3 sources) Pain in right lower limb; Translations: [Pain in right leg] 09-13-2023 Episodic Other diseases of bladder and urethra (8 sources) Overactive bladder; Translations: [Overactive bladder] 08-21-2022 Chronic Other diseases of bladder and urethra (6 sources) Overactive bladder; Translations: [Hypertonicity of bladder] Onset: 08-15-2023 08-21-2022 Chronic Other female genital disorders (1 source) Polyp of corpus uteri; Translations: [Polyp of corpus uteri] 10-06-2022 Episodic Other nervous system disorders (3 sources) Peripheral nerve disease ; Translations: [Polyneuropathy, unspecified] 10-04-2023 Chronic Other nervous system disorders (1 source) Polyneuropathy, unspecified; Translations: [Polyneuropathy, unspecified] Onset: 10-17-2023 Chronic Other non-traumatic joint disorders (3 sources) Pain in right knee; Translations: [Right knee pain] 07-30-2023 Episodic Other nutritional; endocrine; and metabolic disorders (6 sources) Obese class I; Translations: [Obesity, unspecified] Onset: 10-06-2018 10-06-2018 Chronic Other nutritional; endocrine; and metabolic disorders (3 sources) Hypercalcemia; Translations: [Hypercalcemia] 01-31-2024 Chronic Other nutritional; endocrine; and metabolic disorders (1 source) Hypercalcemia; Translations: [Hypercalcemia] Onset: 03-06-2024 Chronic Other screening for suspected conditions (not mental disorders or infectious disease) (17 sources) Endometrium thickened; Translations: [Abnormal findings on diagnostic imaging of other specified body structures] Onset: 10-05-2022 08-21-2022 Chronic Other screening for suspected conditions (not mental disorders or infectious disease) (4 sources) Radionuclide heart study abnormal; Translations: [Abnormal findings on diagnostic imaging of heart and coronary circulation] Onset: 07-25-2024 07-02-2024 Episodic Other upper respiratory infections (11 sources) Acute sinusitis; Translations: [Acute sinusitis, unspecified] 07-04-2022 Episodic Residual codes; unclassified (6 sources) Obstructive sleep apnea syndrome; Translations: [Obstructive sleep apnea (adult) (pediatric)] 06-02-2024 Chronic Residual codes; unclassified (9 sources) History of adenoidectomy; Translations: [Acquired absence of other organs] 08-19-2021 Episodic Residual codes; unclassified (3 sources) Difficulty sleeping ; Translations: [Sleep disorder, unspecified] 09-27-2023 Episodic Residual codes; unclassified (1 source) Asymptomatic menopausal state; Translations: [Asymptomatic menopausal state] Onset: 06-14-2024 Episodic Spondylosis; intervertebral disc disorders; other back problems (2 sources) Other intervertebral disc degeneration, lumbar region; Translations: [Other intervertebral disc degeneration, lumbar region] Onset: 10-17-2023 Chronic Superficial injury; contusion (10 sources) Contusion of elbow; Translations: [Contusion of right elbow, initial encounter] 12-11-2018 Episodic Urinary tract infections (5 sources) Acute cystitis; Translations: [Acute cystitis with hematuria] 07-19-2024 Episodic Past or Other Problems Problem Classification Problem Date Documented Date Episodic/Chronic Other aftercare (1 source) Encounter for surgical aftercare following surgery on the circulatory system; Translations: [Encounter for surgical aftercare following surgery on the circulatory system] Onset: 10-17-2023 Episodic Other and unspecified benign neoplasm (6 sources) History of polyp of colon; Translations: [Personal history of colonic polyps] Onset: 10-27-2004 06-02-2008 Episodic Other connective tissue disease (6 sources) Bilateral plantar fasciitis; Translations: [Plantar fascial fibromatosis] Onset: 09-21-2017 09-23-2018 Episodic Other connective tissue disease (1 source) Pain in right leg; Translations: [Pain in right leg] Onset: 09-13-2023 Episodic Other skin disorders (6 sources) Breast changes; Translations: [Changes in skin texture] Onset: 01-07-2014 01-07-2014 Episodic Residual codes; unclassified (1 source) Sleep disorder, unspecified; Translations: [Sleep disorder, unspecified] Onset: 09-27-2023 Episodic Residual codes; unclassified (1 source) Other specified postprocedural states; Translations: [Other specified postprocedural states] Onset: 09-05-2023 Episodic Spondylosis; intervertebral disc disorders; other back problems (2 sources) Spinal stenosis, lumbar region without neurogenic claudication; Translations: [Radiculopathy, lumbar region] Onset: 10-17-2023 Episodic Results Test Name Value Interpretation Reference Range Facility Urine Cultureon 07-23-2024 URC 1,2 Below infection level. Streptococcus agalactiae (B) [place] Count <1000 Mixed Gram Positive Organisms Mixed Gram Positive Organisms MIXC Mixed contaminants. Submit a new specimen if indicated. Normal [facility] Comment on above: Performed By: #### M 100.2200 ####[facility] [id number] [facility] [place], [address] Cardiovascular stress test r eportOrdered By: Rachel Atkins on 07-21-2024 Study report [facility] Cardiovascular Services [address] [place] [address] MR#: [id number] Acct: [id number] Name: KATIE HILLS Rep #: [id number] : 1945 78 From: Rachel Atkins MD Primary Care: Dr. Kareem Wood MD St at[facility]: REG CLI Referring Dr: Kareem Wood MD Sex: F C Stress Test Report Date: 07/21/2024 Procedure: Exercise tolerance test Indications: Chest pain Consent: Per the patient Procedure: The patient exercised on a Harrison protocol for 5 minutes achieving a peak heart rate of 164 bpm (116% predicted maximal heart rate) with a peak blood pressure 188/70 mmHg and a peak MET capacity of approximately 7.0 MET's. The baseline ECG demonstrated normal sinus rhythm with no ischemic changes. Thepeak exercise ECG did not show any ischemic changes. There were no cardiac dysrhythmias pretest, during exercise, or recovery. The functional capacity was considered average for age. The patient had no complaints of chest discomfort during exercise or recovery. The examination was discontinued secondary to target heart rate being achieved and dyspnea. Impression: 1. Technically adequate (percent predicted maximal heart rate greater than 85%)exercise tolerance test 2. Peak exercise ECG with no ischemic changes 3. There were no cardiac dysrhythmias during exercise or recovery This note was generated with VeraLightation software. It may contain incorrectwords, spelling, and punctuation that were not noted in checking the note beforesigning. 07/21/24 1052 Date _ Rachel Atkins MD CC: Dr. Kareem Wood MD ~ Date Dictated: 07/21/24 1051 Date Transcribed: 07/21/24 105 Grease Maker Head: ROXANNE Ramey [facility] Work Phone: Stress Reporton 07-21-2024 Stress Report [facility] Cardiovascular Services [address] [place] [address] MR#: [id number] Acct: [id number] Name: KATIE HILLS Rep #: [id number] : 1945 78 From: Rachel Atkins MD Primary Care: Dr. Kareem Wood MD Status: REG CLI Referring Dr: Kareem Wood MD Sex: F C Stress Test Report Date: 07/21/2024 Procedure: Exercise tolerance test Indications: Chest pain Consent: Per the patient Procedure: The patient exercised on a Harrison protocol for 5 minutes achieving a peak heart rate of 164 bpm (116% predicted maximal heart rate) with a peak blood pressure 188/70 mmHg and a peak MET capacity of approximately 7.0 MET's. The baseline ECG demonstrated normal sinus rhythm with no ischemic changes. The peak exercise ECG did not show any ischemic changes. There were no cardiac dysrhythmias pretest, during exercise, or recovery. The functional capacity was considered average for age. The patient had no complaints of chest discomfort during exercise or recovery. The examination was discontinued secondary to target heart rate being achieved and dyspnea. Impression: 1. Technically adequate (percent predicted maximal heart rate greater than 85%) exercise tolerance test 2. Peak exercise ECG with no ischemic changes 3. There were no cardiac dysrhythmias during exercise or recovery This note was generated with VeraLightation software. It may contain incorrect words, spelling, and punctuation that were not noted in checking the note before signing. 07/21/24 1052 Date Rachel Atkins MD CC: Dr. Kareem Wood MD Date Dictated: 07/21/24 1051 Date Transcribed: 07/21/24 1051 Grease Maker Head: ROXANNE Signed Normal [facility] Urine cultureOrdered By: Fernando Hernández on 07-21-2024 Bacteria identified Cx Nom (U) Streptococcus agalactiae (B) Abnormal [facility] Bacteria identified Cx Nom (U) Positive Abnormal [facility] Laboratory - Chemistry and C hemistry - challengeOrdered By: Andie Hernández on 07-19-2024 Bilirubin Ql (U) Negative [facility] Glucose Ql (U) Negative [facility] Ketones Ql (U) Negative [facility] pH (U) 7.5 [pH] [facility] Specific gravity (U) [Rel density] <1.[address] [facility] Urobilinogen (U) [Mass/Vol] 0.3387996 mg/dL [facility] Laboratory - Hematology and Cell countsOrdered By: Andie Hernández on 07-19-2024 Hemoglobin Ql (U) Hemolyzed [facility] Laboratory - Specimen inform ationOrdered By: Andie Hernández on 07-19-2024 Clarity (U) Clear [facility] Color (U) YELLOW [facility] Laboratory - UrinalysisOrder ed By: Andie Hernández on 07-19-2024 Nitrite Ql (U) Negative [facility] Protein Ql (U) Negative [facility] No Panel InformationOrdered By: Andie Hernández on 07-19-2024 Urine Leukocytes Positive [facility] Urine Non-Hemolyzed Blood Moderate [facility] Urgent Care Visit Reporton 0 07-19-2024 Urgent Care Visit Report [facility] [address], [address] [place] [address] OFFICE VISIT Date of Service: 07/19/24 MR#: [id number] Acct: [id number] Name: KATIE HILLS Rep #: [id number] : 1945 Provider: RITA Hernández Age/Sex: 78/F Location: [facility] [place] Status: Signed Intake Vital Signs 06/19/24 16:41 07/19/24 12:45 Height 5 ft 7.5 in Weight: 201 lb BMI 31.0 BP 130/70 H 122/80 H Blood Pressure Location Lt brachial Position Sitting Sitting Respiration 16 Pulse 78 68 Pulse Source Monitor Temp 97.5 F L 97.8 F Temp Source Temporal Oral Pulse Oximetry (%) 97 98 Oxygen Delivery Method room air room air Intake Visit Reasons: CONCERN FOR UTI Accompanied by: Self Allergies amoxicillin (Amoxicillin) Allergy (Verified 07/19/24 12:57) Rash dexamethasone Adverse Reaction (Severe, Verified 07/19/24 12:57) Other adhesive Adverse Reaction (Verified 07/19/24 12:57) Swelling simvastatin Adverse Reaction (Verified 07/19/24 12:57) Pain in joints Medications ???Medication ???Instructions ???Recorded ???Confirmed ???Type aspirin 81 mg tablet,delayed 81 mg PO DAILY 06/03/18 06/19/24 H istory release (Adult Low Dose Aspirin) docusate sodium 50 mg capsule 50 mg PO DAILY 12/11/18 06/19/24 H istory (Stool Softener) vitamin B complex 1 cap PO DAILY 05/17/21 06/19/24 H istory coenzyme Q10 100 mg capsule (Co 100 mg PO DAILY 08/19/21 06/19/24 History Q-10) turmeric root extract 1,053 mg 1,076 mg PO DAILY 08/19/21 5 History tablet inulin 2 gram chewable tablet 4 g PO DAILY 01/26/23 06/19/24 His tory (Fiber Gummies) polyethylene glycol 3350 17 4 g PO DAILY 01/26/23 06/19/24 His tory gram/dose oral powder (Miralax) ascorbate calcium (vitamin C) 500 500 mg PO DAILY 07/30/23 06/19/24 History mg tablet meloxicam 15 mg tablet 15 mg PO QDAY PRN pain #90 tabs 06/19/24 Rx calcium carbonate (Calcium 600) 600 mg PO .qod 06/19/24 History cholecalciferol (vitamin D3) 25 2,000 unit PO BID 06/19/24 5 History mcg (1,000 unit) capsule ezetimibe 10 mg tablet See Rx Instructions .Route 5 Rx .COMPLEX #90 tabs losartan 100 mg tablet 100 mg PO QDAY #90 tabs 07/18/24 Rx nitrofurantoin 100 mg PO Q12H 5 days #10 caps 09/0507/19/24 Rx monohydrate/macrocrysta ls 100 mg capsule (Macrobid) Have you fallen in the past year?: No Nurse's Note: Patient here for concerns for a UTI. Patient has been having to go right away when she gets the urge and having frequent urination for a couple days. [facility] Medical History (Updated 07/19/24 @ 13:05 by RITA Webster) Abnormal nuclear cardiac imaging test Chest pain Vitamin D insufficiency Osteopenia with high risk of fracture Osteopenia Hypercalcemia JUNIOR (obstructive sleep apnea) Peripheral neuropathy Right knee pain Hematuria COVID-19 Contact with or exposure to viral disease History of hiatal hernia Urinary frequency OAB (overactive bladder) Thickened endometrium Hypertension Health care maintenance Elevated blood pressure reading Wears glasses Thyroid disease Former smoker Shortness of breath on exertion History of stress test Cardiology follow-up encounter Carotid artery stenosis Hyperlipidemia History of carotid artery stenosis Surgical History History of dilation and curettage History of carpal tunnel repair History of adenoidectomy Hx of right cataract extraction Hx of left cataract extraction History of colonoscopy ( 2014) History of tonsillectomy History of laparoscopic cholecystectomy History of right-sided carotid endarterectomy ( 10/31/10) Family History Uncle Colon cancer Mother Diabetes Hypertension High cholesterol CVA (cerebral vascular accident) Thyroid disorder Heart disease Myocardial infarction Sister Diabetes Hypertension High cholesterol Kidney disease CVA (cerebral vascular accident) Grandmother Diabetes Social History Smoking Status: Former smoker alcohol intake: never substance use type: does not use HPI HPI Details: KATIE HILLS, is a 78 F who presents to the office today for UTI -sx started 3 days- urinary frequency and urgency- last night up 6x - this morning sx of burning and discomfort started -denies fever, chills, back/abd/pelvic pain -tried so far increased water -last uti about 1.5 years ago ROS Const Constitutional: Positive for other (ROS negative x6 except what was placed in HPI) Exam Const General: cooperative and no acute distress Orientation: alert and orie (more content not included)... Normal [facility] Coronary Angiography CTon Coronary Angiography CT [facility] Imaging Services [address] [place] [address] 07/01/24 1702 MR#: [id number] Acct: [id number] Name: KATIE HILLS Rep #: [id number] : 1945 78 From: Rhys Pop MD PCP: Dr. Kareem Wood MD Status:REG CLI Y Location: CT Calcium Scoring Date of Study:: 07/01/24 Indications Indications: family history Coronary Calcium Scoring: High-resolution Computed Tomographic imaging of the chest was performed on [07/01/24 ], with particular attention paid to the coronary arteries. Images from the examination were analyzed for the presence and extent of coronary artery calcification , using coronary calcium quantification software. The patient tolerated the procedure well and there were no complications. The results of the coronary calcification analysis are provided below. Findings Coronary Artery Left Main (LM): 0 Left Anterior Descending (LAD): 148 Left Circumflex (LCX): 0 Right Coronary Artery (RCA): 0 Total Agatston Score: 148 Percentile Rankin-75% Calcium Scoring Interpretation: Different methods to categorize the overall amount of coronary plaque. Overall amount CAC SIS Visual of coronary plaque P1 Mild -100 <2 1-2 vessels with mild amount of plaque P2 Moderate 101-300 3-4 1-2 vessels with moderate amount, 3 vessels with mild amount of plaque P3 Severe 301-999 5-7 3 vessels with moderate amount, 1 vessel with severe amount of plaque P4 Extensive >1000 >8 2-3 vessels with severe amount of plaque Calcium Score: Mild: 1-2 vessels w/mild amount of plaque Conclusion: Mild atherosclerotic plaque in the LAD 07/01/24 1704 Date Rhys Pop MD Cosigner Signature (if applicable): Date CC: Dr. Rhys Pop MD; Dr. Kareem Wood MD Signed Normal [facility] Limited Chest CT Cardiac Onl yon 07-01-[address] Cardiac Only [facility] Imaging Services [address] [place] [address] Cardiac Only MR#: [id number] Acct: [id number] Name: KATIE HILLS Rep #: [id number] : 1945 F 78 From: Marvel oliveira MD PCP: Dr. Kareem Wood MD Status: [facility] Study: Limited Chest CT Cardiac Only Date of Exam: Exam# [id number] Ordering Dr: Kareem Wood MD PROCEDURE: LIMITED CHEST CT CARDIAC ONLY REASON FOR EXAM: CARDIAC RISK ASSESEMENT TECHNIQUE: Supine chest CT without contrast. One or more dose reduction techniques were used (e.g., Automated exposure control, adjustment of the mA and/or kV according to patient size, use of iterative reconstruction technique). COMPARISON: None FINDINGS: Hardware: None Lymph nodes: Small benign-appearing mediastinal lymph nodes. Heart and Vasculature: Normal heart size. No pericardial effusion. Atherosclerotic calcifications of the thoracic aorta. Thoracic aorta and pulmonary arteries have normal contours; noncontrast technique limits evaluation. Coronary Artery Calcifications: Present Lungs and Airways: Mild linear scarring at the lung bases. Pleura: No pleural effusion. Upper Abdomen: Small hiatal hernia. Bones: Degenerative changes of the thoracic spine. CT/Limited Chest CT Cardiac Only IMPRESSION: Coronary artery calcification (CAC) is is present Reading Location: [place] [address] CC: Dr. Kareem Wood MD Grease Maker Head: Signed Normal [facility] Internal Medicine Office Vis ito 06-19-2024 Internal Medicine Office Visit [facility] [address] [place] [address] [place] [address] OFFICE VISIT Date of Service: 06/19/24 MR#: [id number] Acct: [id number] Name: KATIE HILLS Rep #: [id number] : 1945 Provider: Dr. Kareem nunez MD Age/Sex: 78/F Location[place] [facility] Status: Signed Intake Vital Signs 06/02/24 13:33 06/19/24 16:41 Height 5 ft 7.5 in 5 ft 7.5 in Weight: 201 lb BMI 31.0 BP 130/70 H Blood Pressure Location Lt brachial Position Sitting Respiration 16 Pulse 78 Pulse Source Monitor Temp 97.5 F L Temp Source Temporal Pulse Oximetry (%) 97 Oxygen Delivery Method room air Intake Visit Reasons: discuss bone density Chief Complaint: Discuss bone density 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 Required: No Is patient in pain?: No Allergies amoxicillin (Amoxicillin) Allergy (Verified 06/19/24 16:37) Rash dexamethasone Adverse Reaction (Severe, Verified 06/19/24 16:37) Other adhesive Adverse Reaction (Verified 06/19/24 16:37) Swelling simvastatin Adverse Reaction (Verified 06/19/24 16:37) Pain in joints Medications ???Medication ???Instructions ???Recorded ???Confirmed ???Type aspirin 81 mg tablet,delayed 81 mg PO DAILY 06/03/18 06/19/24 H istory release (Adult Low Dose Aspirin) docusate sodium 50 mg capsule 50 mg PO DAILY 12/11/18 06/19/24 H istory (Stool Softener) vitamin B complex 1 cap PO DAILY 05/17/21 06/19/24 H istory coenzyme Q10 100 mg capsule (Co 100 mg PO DAILY 08/19/21 06/19/24 History Q-10) turmeric root extract 1,053 mg 1,076 mg PO DAILY 08/19/21 5 History tablet inulin 2 gram chewable tablet 4 g PO DAILY 01/26/23 06/19/24 His tory (Fiber Gummies) polyethylene glycol 3350 17 4 g PO DAILY 01/26/23 06/19/24 His tory gram/dose oral powder (Miralax) ascorbate calcium (vitamin C) 500 500 mg PO DAILY 07/30/23 06/19/24 History mg tablet ezetimibe 10 mg tablet See Rx Instructions .Route 4 06/19/24 Rx .COMPLEX #90 tabs meloxicam 15 mg tablet 15 mg PO QDAY PRN pain #90 tabs 06/19/24 Rx losartan 100 mg tablet 100 mg PO QDAY #90 tabs 03/07/24 0 06/19/24 Rx calcium carbonate (Calcium 600) 600 mg PO .qod 06/19/24 History cholecalciferol (vitamin D3) 25 2,000 unit PO BID 06/19/24 5 History mcg (1,000 unit) capsule ibandronate 150 mg tablet 150 mg PO QMONTH #7 tabs 06/19/24 06/19/24 Rx Have you fallen in the past year?: No Nurse's Note: Pt here to go over bone density results. [facility] Medical History (Updated 06/19/24 @ 17:[address] Kareem Wood MD) Vitamin D insufficiency Osteopenia with high risk of fracture Osteopenia Hypercalcemia JUNIOR (obstructive sleep apnea) Peripheral neuropathy Right knee pain Hematuria COVID-19 Contact with or exposure to viral disease History of hiatal hernia Urinary frequency OAB (overactive bladder) Thickened endometrium Hypertension Health care maintenance Elevated blood pressure reading Wears glasses Thyroid disease Former smoker Shortness of breath on exertion History of stress test Cardiology follow-up encounter Carotid artery stenosis Hyperlipidemia History of carotid artery stenosis Surgical History History of dilation and curettage History of carpal tunnel repair History of adenoidectomy Hx of right cataract extraction Hx of left cataract extraction History of colonoscopy ( 2014) History of tonsillectomy History of laparoscopic cholecystectomy History of right-sided carotid endarterectomy ( 10/31/10) Family History Uncle Colon cancer Mother Diabetes Hypertension High cholesterol CVA (cerebral vascular accident) Thyroid disorder Heart disease Myocardial infarction Sister Diabetes Hypertension High cholesterol Kidney disease CVA (cerebral vascular accident) Grandmother Diabetes Social History Smoking Status: Former smoker alcohol intake: never substance use type: does not use HPI HPI Chief Complaint: Discuss bone density Details: KATIE HILLS, is a 78 F who presents to the office today to discuss recent bone density scores. Bone density scan done showed osteopenia with a very high fracture risk. No recent fracture. Currently at a BMI of 31. Medication options discussed and she chose to go with ibandronate. Denies any significant reflux. Follows up with her dentist routinely and is not aware of any jawbone problems ROS Const Constitutional: No body ache, chills, excessive sweating, fatigue, fever(s), frequent falls, headache(s), snoring, weakness, sleep problems or change in appetite Eyes Eyes: No blurry vision, change in vision, (more content not included)... Normal [facility] Dexa Bone Density Studyon Dexa Bone Density Study [facility] Imaging Services [address] [place] [id number] Dexa Bone Density Study MR#: [id number] Acct: [id number] Name: KATIE HILLS Rep #: [id number] : 1945 F 78 From: Bismark Patel MD PCP: Dr. Kareem Wood MD Status: DEP CLI Study: Dexa Bone Density Study Date of Exam: 06/10/24 Exam# [id number] Ordering Dr: Kareem Wood MD PROCEDURE: DEXA BONE DENSITY STUDY 06/10/2024 REASON FOR EXAM: POST MENOPAUSAL F, age 78 y/o . TECHNIQUE: DXA scan of sites with data reported below. Scanner utilized: [employer] W. [facility] COMPARISON: DEXA scan 09/06/2021 FINDINGS: BMD and T-SCORES Lumbar spine: 0.887 g/cm2, T-score -1.5 Levels: L1 through L4 Left femoral neck: 0.655 g/cm2, T-score -1.7 Femoral neck comparison data not recommended for monitoring change. Prior T-score -1.6 Left total hip: 0.840 g/cm2, T-score -0.8 Change from prior: Statistically significant BMD decrease of 7.3%. Right femoral neck: 0.704 g/cm2, T-score -1.3 Femoral neck comparison data not recommended for monitoring change. Prior T-score -0.8 Right total hip: 0.865 g/cm2, T-score -0.6 Change from prior: Statistically significant BMD decrease of 7.5%. The World Health Organization has defined the following categories based on bone density: Normal bone density: T-score equal to or greater than -1.0 Osteopenia: T-score between -1.0 and -2.5 Osteoporosis: T-score equal to or less than -2.5 FRAX (or Comparable) Fracture Risk Assessment: 10 Year Probability of Fracture: Major Osteoporotic Fracture: 32% Hip Fracture: 18% (Note: FRAX is not to be reported in setting of normal range bone density, osteoporosis on DEXA, known history of osteoporosis, prior osteoporotic hip or vertebral fracture, or for any patient undergoing pharmacological treatment for bone loss.) The National Osteoporosis Foundation (NOF) recommends pharmacological treatment for patients with a FRAX 10-year risk of 3% or higher for a hip fracture, or 20% or higher for a major osteoporotic fracture, to prevent osteoporosis and reduce fracture risk. The patient does meet the pharmacological treatment recommendations for prevention of osteoporosis. BD/Dexa Bone Density Study IMPRESSION: OSTEOPENIA. Reading Location: [facility] CC: Dr. Kareem Wood MD Grease Maker Head: Signed Normal [facility] Absolute lymphocyte countOrd ered By: Kareem Wood on 06-02-2024 Lymphocytes Auto (Unsp spec) [#/Vol] 2.33 10*3/uL 0.83-4.[address] [facility] Absolute neutrophil countOrd ered By: Kareem Wood on 06-02-2024 Neutrophils (Bld) [#/Vol] 2.8 10*3/uL 2.0-7.[address] [facility] Anion gap in Serum or Plasma Ordered By: Kareem Wood on 06-02-2024 Anion gap [Moles/Vol] 9 mmol/L 5-15 [facility] Automated lymphocyte count a s percentage of total leukocytesOrdered By: Kareem Wood on 06-02-2024 Lymphocytes/100 WBC Auto (Unsp spec) 41.2 % High 19-[address] [facility] BUN/creatinine ratioOrdered By: Kareem Wood on 06-02-2024 Urea nitrogen/Creatinine [Mass ratio] 25.0 mg/mg High 10-[address] [facility] Basic Metabolic Profile (BMP )on 06-02-2024 BUN/CRE 25.0 RATIO High 10-[address] [facility] Comment on above: Performed By: #### L 100.0100, L506.1001, L500.2500 #### [facility] Laboratory [address] [place], [address] Calcium [Mass/Vol] 10.8 mg/dL Normal 7.6-11.0 [facility] Comment on above: Performed By: #### L 100.0100, L506.1001, L500.2500 #### [facility] [address] [place], [address] Chloride [Moles/Vol] 105 mmol/L Normal 98-108 [facility] Comment on above: Performed By: #### L 100.0100, L506.1001, L500.2500 #### [facility] [address] [place], [address] CO2 [Moles/Vol] 25.3 mmol/L Normal 21.0-32.[address] [facility] Comment on above: Performed By: #### L 100.0100, L506.1001, L500.2500 #### [facility] [address] [place], [address] Creatinine [Mass/Vol] 0.69 mg/dL Low 0.70-1.20 [facility] Comment on above: Performed By: #### L 100.0100, L506.1001, L500.2500 #### [facility] [address] [place], [address] GAP 9 Normal 5-[address] [facility] Comment on above: Performed By: #### L 100.0100, L506.1001, L500.2500 #### [facility] [address] [place], [address] GFR/1.73 sq M.predicted among non-blacks MDRD (S/P/Bld) [Vol rate/Area] 88 mL/min/{1.73_m2} Normal >[address] [facility] Comment on above: Result Comment: mL/m in/1.73m2 CKD-EPI Creatinine Equation (2020) Performed By: #### L 100.0100, L506.1001, L500.2500 #### [facility] [address] [place], [address] Glucose [Mass/Vol] 86 mg/dL Normal 70-99 [facility] Comment on above: Performed By: #### L 100.0100, L506.1001, L500.2500 #### [facility] [address] [place], [address] Potassium [Moles/Vol] 4.4 mmol/L Normal 3.3-5.1 [facility] Comment on above: Performed By: #### L 100.0100, L506.1001, L500.2500 #### [facility] [address] [place], [address] Sodium [Moles/Vol] 139 mmol/L Normal 133-145 [facility] Comment on above: Performed By: #### L 100.0100, L506.1001, L500.2500 #### [facility] [address] [place], [address] Urea nitrogen [Mass/Vol] 17 mg/dL Normal 4-[address] [facility] Comment on above: Performed By: #### L 100.0100, L506.1001, L500.2500 #### [facility] [address] [place], [address] Basophil percentageOrdered B y: Kareem Wood on 06-02-2024 Basophils/100 WBC (Bld) 0.9 % 0-1 [facility] CBC W/Diff, Automatedon - Absolute Lymph 2.33 X10 3/uL Normal 0.83-4.[address] [facility] Comment on above: Performed By: #### L 100.0100, L506.1001, L500.2500 #### [facility] [address] [place], [address] Absolute Neut 2.8 X10 3/uL Normal 2.0-7.[address] [facility] Comment on above: Performed By: #### L 100.0100, L506.1001, L500.2500 #### [facility] [address] [place], [address] Basophils/100 WBC (Bld) 0.9 % Normal 0-1 [facility] Comment on above: Performed By: #### L 100.0100, L506.1001, L500.2500 #### [facility] [address] [place], [address] Eosinophils/100 WBC (Bld) 2.1 % Normal 0-[address] [facility] Comment on above: Performed By: #### L 100.0100, L506.1001, L500.2500 #### [facility] [address] [place], [address] Erythrocyte distribution width (RBC) [Ratio] 12.3 % Normal 11.6-14.[address] [facility] Comment on above: Performed By: #### L 100.0100, L506.1001, L500.2500 #### [facility] [address] [place], [address] Hematocrit (Bld) [Volume fraction] 37.9 % Normal 37-[address] [facility] Comment on above: Performed By: #### L 100.0100, L506.1001, L500.2500 #### [facility] [address] [place], [address] Hemoglobin (Bld) [Mass/Vol] 12.8 g/dL Normal 12.0-15.[address] [facility] Comment on above: Performed By: #### L 100.0100, L506.1001, L500.2500 #### [facility] [address] [place], [address] IG% 0.200 Normal 0.0-0.[address] [facility] Comment on above: Result Comment: IG% - Immature Granulocytes (promyelocytes, myelocytes and metamyelocytes) > 1% indicates that a LEFT SHIFT is Present. Performed By: #### L 100.0100, L506.1001, L500.2500 #### [facility] [address] [place], [address] Lymphocytes/100 WBC (Bld) 41.2 % High 19-[address] [facility] Comment on above: Performed By: #### L 100.0100, L506.1001, L500.2500 #### [facility] [address] [place], [address] MCH (RBC) [Entitic mass] 29.9 pg Normal 27.0-32.[address] [facility] Comment on above: Performed By: #### L 100.0100, L506.1001, L500.2500 #### [facility] [address] [place], [address] MCHC (RBC) [Mass/Vol] 33.8 g/dL Normal 32-36 [facility] Comment on above: Performed By: #### L 100.0100, L506.1001, L500.2500 #### [facility] [address] [place], [address] MCV (RBC) [Entitic vol] 88.6 fL Normal 81-99 [facility] Comment on above: Performed By: #### L 100.0100, L506.1001, L500.2500 #### [facility] [address] [place], [address] Monocytes/100 WBC (Bld) 7.1 % Normal 0-10 [facility] Comment on above: Performed By: #### L 100.0100, L506.1001, L500.2500 #### [facility] [address] [place], [address] Neutrophils/100 WBC (Bld) 48.5 % Normal 47-[address] [facility] Comment on above: Performed By: #### L 100.0100, L506.1001, L500.2500 #### [facility] [address] [place], [address] Nucleated RBC (Bld) [#/Vol] 0 10*3/uL Normal 0-[address] [facility] Comment on above: Performed By: #### L 100.0100, L506.1001, L500.2500 #### [facility] [address] [place], [address] Platelet mean volume (Bld) [Entitic vol] 10.1 fL Normal 6.2-12.[address] [facility] Comment on above: Performed By: #### L 100.0100, L506.1001, L500.2500 #### [facility] [address] [place], [address] Platelets (Bld) [#/Vol] 223 10*3/uL Normal 150-[address] [facility] Comment on above: Performed By: #### L 100.0100, L506.1001, L500.2500 #### [facility] [address] [place], [address] RBC (Bld) [#/Vol] 4.28 10*6/uL Normal 4.2-5.4 [facility] Comment on above: Performed By: #### L 100.0100, L506.1001, L500.2500 #### [facility] [address] [place], [address] RDW SD 39.7 fl Normal 35.1-43.[address] [facility] Comment on above: Performed By: #### L 100.0100, L506.1001, L500.2500 #### [facility] [address] [place], [address] WBC (Bld) [#/Vol] 5.7 10*3/uL Normal 4.4-11.0 [facility] Comment on above: Performed By: #### L 100.0100, L506.1001, L500.2500 #### [facility] [address] [place], [address] Carbon dioxide, total [Moles /volume] in Central venous bloodOrdered By: Kareem Wood on 06-02-2024 CO2 [Moles/Vol] 25.3 mmol/L 21.0-32.[address] [facility] Chloride assayOrdered By: Mitzy Wood on 06-02-2024 Chloride [Moles/Vol] 105 mmol/L 98-108 [facility] Eosinophil percentageOrdered By: Kareem Wood on 06-02-2024 Eosinophils/100 WBC (Bld) 2.1 % 0-[address] [facility] Erythrocyte distribution wid th ratioOrdered By: Kareem Wood on 06-02-2024 Erythrocyte distribution width (RBC) [Ratio] 12.3 % 11.6-14.[address] [facility] Erythrocyte distribution wid th standard deviationOrdered By: Kareem Wood on 06-02-2024 Erythrocyte distribution width (RBC) [Ratio] 39.7 fl 35.1-43.[address] [facility] Glomerular filtration rate ( GFR) estimation/1.73 sq m using serum, plasma, or whole bOrdered By: Kareem Wood on 06-02-2024 GFR/1.73 sq M.predicted among non-blacks MDRD (S/P/Bld) [Vol rate/Area] 88 mL/min/{1.73_m2} >[address] [facility] Comment on above: mL/min/1.73m2 CKD-EP I Creatinine Equation (2020) Hematocrit Auto (Bld) [Volum e fraction]Ordered By: Kareem Wood on 06-02-2024 Hematocrit (Bld) [Volume fraction] 37.9 % 37-[address] [facility] Hemoglobin measurementOrdere d By: Kareem Wood on 06-02-2024 Hemoglobin (Bld) [Mass/Vol] 12.8 g/dL 12.0-15.[address] [facility] Immature granulocytes/100 WB C Auto (Bld)Ordered By: Kareem Wood on 06-02-2024 Immature granulocytes/100 WBC (Bld) 0.200 % 0.0-0.[address] [facility] Comment on above: IG% - Immature Granu locytes (promyelocytes, myelocytes and metamyelocytes) > 1% indicates that a LEFT SHIFT is Present. Internal Medicine Office Vis tunde 06-02-2024 Internal Medicine Office Visit [facility] [address] [place] [address] [place] [address] OFFICE VISIT Date of Service: 06/02/24 MR#: [id number] Acct: [id number] Name: KATIE HILLS Rep #: [id number] : 1945 Provider: Dr. Kareem nunez MD Age/Sex: 78/F Location: [facility] Status: Signed Intake Vital Signs 01/31/24 14:02 06/02/24 13:33 Height 5 ft 7.5 in 5 ft 7.5 in Weight: 203 lb BMI 31.3 BP 142/76 H Blood Pressure Location Lt brachial Position Sitting Respiration 14 Pulse 62 Pulse Source Monitor Temp 96.9 F L Temp Source Temporal Pulse Oximetry (%) 97 Oxygen Delivery Method room air Intake Visit Reasons: 4 M FU Chief Complaint: Follow-up chronic conditions. 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 Required: No Is patient in pain?: No Allergies amoxicillin (Amoxicillin) Allergy (Verified 06/02/24 13:25) Rash dexamethasone Adverse Reaction (Severe, Verified 06/02/24 13:25) Other adhesive Adverse Reaction (Verified 06/02/24 13:25) Swelling simvastatin Adverse Reaction (Verified 06/02/24 13:25) Pain in joints Medications ???Medication ???Instructions ???Recorded ???Confirmed ???Type aspirin 81 mg tablet,delayed 81 mg PO DAILY 06/03/18 06/02/24 H istory release (Adult Low Dose Aspirin) docusate sodium 50 mg capsule 50 mg PO DAILY 12/11/18 06/02/24 H istory (Stool Softener) vitamin B complex 1 cap PO DAILY 05/17/21 06/02/24 H istory coenzyme Q10 100 mg capsule (Co 100 mg PO DAILY 08/19/21 06/02/24 History Q-10) turmeric root extract 1,053 mg 1,076 mg PO DAILY 08/19/21 5 History tablet calcium carbonate (Calcium 600) 600 mg PO BID #90 tabs 07/04/22 Rx cholecalciferol (vitamin D3) 25 1,000 unit PO BID 07/04/22 5 History mcg (1,000 unit) capsule inulin 2 gram chewable tablet 4 g PO DAILY 01/26/23 06/02/24 His tory (Fiber Gummies) polyethylene glycol 3350 17 4 g PO DAILY 01/26/23 06/02/24 His tory gram/dose oral powder (Miralax) ascorbate calcium (vitamin C) 500 500 mg PO DAILY 07/30/23 06/02/24 History mg tablet ezetimibe 10 mg tablet See Rx Instructions .Route 4 06/02/24 Rx .COMPLEX #90 tabs meloxicam 15 mg tablet 15 mg PO QDAY PRN pain #90 tabs 06/02/24 Rx losartan 100 mg tablet 100 mg PO QDAY #90 tabs 03/07/24 0 06/02/24 Rx Have you fallen in the past year?: No PFSH Medical History (Updated 06/02/24 @ 16:[address] Kareem Wood MD) Osteopenia Hypercalcemia JUNIOR (obstructive sleep apnea) Peripheral neuropathy Right knee pain Hematuria COVID-19 Contact with or exposure to viral disease History of hiatal hernia Urinary frequency OAB (overactive bladder) Thickened endometrium Hypertension Health care maintenance Elevated blood pressure reading Wears glasses Thyroid disease Former smoker Shortness of breath on exertion History of stress test Cardiology follow-up encounter Carotid artery stenosis Hyperlipidemia History of carotid artery stenosis Surgical History History of dilation and curettage History of carpal tunnel repair History of adenoidectomy Hx of right cataract extraction Hx of left cataract extraction History of colonoscopy ( 2014) History of tonsillectomy History of laparoscopic cholecystectomy History of right-sided carotid endarterectomy ( 10/31/10) Family History Uncle Colon cancer Mother Diabetes Hypertension High cholesterol CVA (cerebral vascular accident) Thyroid disorder Heart disease Myocardial infarction Sister Diabetes Hypertension High cholesterol Kidney disease CVA (cerebral vascular accident) Grandmother Diabetes Social History Smoking Status: Former smoker alcohol intake: never substance use type: does not use HPI HPI Chief Complaint: Follow-up chronic conditions. Details: KATIE HILLS, is a 78 F who presents to the office today for Follow-up of her chronic conditions. Also has some concerns. History of hypertension, she did come in with her log which shows much better readings at home. Average readings ranging in the 120s. Has come in with her monitor for comparison and it was comparable. Currently on losartan which she reports compliance with. No chest pain, palpitation or shortness of breath. Concerned about her risk for cardiovascular disease. Positive family history of. Also history of hypertension and hyperlipidemia. Patient has CPAP consistently, she states that she feels much better rested when she wakes up. No concerns with it. History of osteopenia, due for repeat bone density scan. Take vitamin D supplements consistently. Other chron (more content not included)... Normal [facility] MCV (mean corpuscular volume ) determinationOrdered By: Kareem Wood on 06-02-2024 MCV (RBC) [Entitic vol] 88.6 fL 81-99 [facility] Mean corpuscular hemoglobin (MCH) determinationOrdered By: Kareem Wood on 06-02-2024 MCH (RBC) [Entitic mass] 29.9 pg 27.0-32.[address] [facility] Mean corpuscular hemoglobin concentration (MCHC) determinationOrdered By: Kareem Wood on 06-02-2024 MCHC (RBC) [Mass/Vol] 33.8 g/dL 32-36 [facility] Mean platelet volume determi nationOrdered By: Kareem Wood on 06-02-2024 Platelet mean volume (Bld) [Entitic vol] 10.1 fL 6.2-12.[address] [facility] Monocyte percentageOrdered B y: Kareem Wood on 06-02-2024 Monocytes/100 WBC (Bld) 7.1 % 0-10 [facility] Neutrophil percentageOrdered By: Kareem Wood on 06-02-2024 Neutrophils/100 WBC (Bld) 48.5 % 47-[address] [facility] Nucleated red blood cell per centageOrdered By: Kareem Wood on 06-02-2024 Nucleated RBC/100 WBC (Bld) [Ratio] 0 % 0-[address] [facility] Platelet countOrdered By: Mitzy Wood on 06-02-2024 Platelets (Bld) [#/Vol] 223 10*3/uL 150-[address] [facility] Potassium measurement (mass/ volume)Ordered By: Kareem Riankaylan on 06-02-2024 Potassium (Unsp spec) [Mass/Vol] 4.4 mmol/L 3.3-5.[address] [facility] RBC Auto (Bld) [#/Vol]Ordere d By: Kareem Riankaylan on 06-02-2024 RBC (Bld) [#/Vol] 4.28 10*6/uL 4.2-5.4 [facility] Serum creatinine measurement (mass/volume)Ordered By: Anajaydon Modijeannievivian on 06-02-2024 Creatinine [Mass/Vol] 0.69 mg/dL Low 0.70-1.20 [facility] Serum glucose measurement (m ass/volume)Ordered By: Mitzyrichardcostajaydon Modijeannievivian on 06-02-2024 Glucose [Mass/Vol] 86 mg/dL 70-99 [facility] Serum or plasma calcium thea urement (mass/volume)Ordered By: Kareem Riankaylan on 06-02-2024 Calcium [Mass/Vol] 10.8 mg/dL 7.6-11.0 [facility] Serum or plasma urea nitroge n measurement (mass/volume)Ordered By: Anajaydon Modijeannievivian on 06-02-2024 Urea nitrogen [Mass/Vol] 17 mg/dL 4-[address] [facility] Sodium levelOrdered By: Alyssia pineda Rianjeannievivian on 06-02-2024 Sodium [Moles/Vol] 139 mmol/L 133-145 [facility] Vitamin D,25 Hydroxyon 06-02 Vitamin D 25-OH 24.5 ng/mL Low 30-[address] [facility] Comment on above: Result Comment: Susan min D Status Deficiency: <20 ng/mL (50nmol/L) Insufficiency: 20-30 ng/mL (50-75 nmol/L) Sufficiency: 30-100 ng/mL (75-250 nmol/L) Toxicity: >100 ng/mL (>250 nmol/L) Performed By: #### L 100.0100, L506.1001, L500.2500 #### [facility] [address] [place], [address] White blood cell (WBC) count Ordered By: Kareem Wood on 06-02-2024 WBC (Bld) [#/Vol] 5.7 10*3/uL 4.4-11.0 [facility] Visit Reporton [address] [facility] [address] [place] [address] OFFICE VISIT Date of Service: 03/07/24 MR#: [id number] Acct: [id number] Patient: KATIE HILLS Rep #: [id number] : 1945 Provider: ARNEL NURSE Age/Sex: 78/F Location[place] [facility] [place] Status: Signed Intake Vital Signs 01/31/24 14:02 03/07/24 09:45 Height 5 ft 7.5 in Weight: 199 lb BMI 30.7 BP 142/74 H 154/74 H Blood Pressure Location Lt brachial Lt brachial Position Sitting Sitting Respiration 14 Pulse 76 Pulse Source Monitor Temp 97.2 F L Temp Source Temporal Pulse Oximetry (%) 96 Oxygen Delivery Method room air Intake Visit Reasons: BP check Chief Complaint: bp check Allergies amoxicillin (Amoxicillin) Allergy (Verified 01/31/24 13:57) Rash dexamethasone Adverse Reaction (Severe, Verified 01/31/24 13:57) Other adhesive Adverse Reaction (Verified 01/31/24 13:57) Swelling simvastatin Adverse Reaction (Verified 01/31/24 13:57) Pain in joints Medications ???Medication ???Instructions ???Recorded ???Confirmed ???Type aspirin 81 mg tablet,delayed 81 mg PO DAILY 06/03/18 03/07/24 History release (Adult Low Dose Aspirin) docusate sodium 50 mg capsule 50 mg PO DAILY 12/11/18 03/07/24 History (Stool Softener) vitamin B complex 1 cap PO DAILY 05/17/21 03/07/24 History coenzyme Q10 100 mg capsule (Co 100 mg PO DAILY 08/19/21 03/07/24 History Q-10) turmeric root extract 1,053 mg 1,076 mg PO DAILY 08/19/21 03/07/24 History tablet calcium carbonate (Calcium 600) 600 mg PO BID #90 tabs 07/04/22 03/07/24 Rx cholecalciferol (vitamin D3) 25 1,000 unit PO BID 07/04/22 03/07/24 History mcg (1,000 unit) capsule inulin 2 gram chewable tablet 4 g PO DAILY 01/26/23 03/07/24 History (Fiber Gummies) polyethylene glycol 3350 17 4 g PO DAILY 01/26/23 03/07/24 History gram/dose oral powder (Miralax) ascorbate calcium (vitamin C) 500 500 mg PO DAILY 07/30/23 03/07/24 History mg tablet ezetimibe 10 mg tablet See Rx Instructions .Route 09/03/23 03/07/24 Rx .COMPLEX #90 tabs meloxicam 15 mg tablet 15 mg PO QDAY PRN pain #90 tabs 01/31/24 03/07/24 Rx losartan 100 mg tablet 100 mg PO QDAY #90 tabs 03/07/24 03/07/24 Rx Have you fallen in the past year?: No Nurse's Note: pt presents fo BP check, has brought in log readings are as follows: 03/03/2024-139/66 AM ,125/65 PM 03/04/2024-137/63 AM, 136/66 PM 03/05/2024-133/64 AM , 140/76, 142/66 PM 03/06/2024-135/72 AM,133/70 PM 03/07/2024-140/[address] heart rate 62-81 pt states no HTN sx taking medication as directed. pt placed BP cuff appropriately on arm positioned self correctly, today pt bp cuff reading 156/77 153/74 heart rate 72. today manual 154/74 heart 72 pt states has increased water in take and more movement with life style, decreased salt intake. message sent to PCP Assessment and Plan Assessment and Plan (1) Hypertension: Status: Chronic Qualifiers: Hypertension type: primary hypertension Qualified Code(s): I10 - Essential (primary) hypertension Medications: New losartan 100 mg PO QDAY 90 tabs 1RF Discontinued losartan-hydrochlorothi azide 100-12.5 mg Discontinued Reason: Discontinued by PCP/other physicians 1 TAB PO QDAY 30 tabs 1RF Clinical Quality Measures Falls Risk Screening/Assistive Devices Have you fallen in the past year?: No 03/07/24 1642 Date Kareem Farr Signature: Date (if applicable) CC: Normal [facility] PTHINon 02-01-2024 PTH 69.4 pg/mL Normal 18.4-80.[address] [facility] Comment on above: Performed By: #### L 506.1000, L509.1000 #### [facility] [address] [place], [address] Vitamin D,25 Hydroxyon 01-31 Vitamin D 25-OH 24.9 ng/mL Normal [facility] Comment on above: Result Comment: Susan min D 25(OH) Status Range Deficiency <20 ng/mL (50nmol/L) Insufficiency 20 - 30 ng/mL (50 - 75 nmol/L) Sufficiency 30 - 100 ng/mL (75 - 250 nmol/L) Toxicity >100 ng/mL (>250 nmol/L) Performed By: #### L 506.1000, L509.1000 ####[facility] [address] [place], [address] Comprehensive Metabolic Prof ilon 01-31-2024 Albumin [Mass/Vol] 4.0 g/dL Normal 3.2-5.0 [facility] Comment on above: Performed By: #### L 500.4100, L500.4050 ####[facility] [address] [place], [address] Albumin/Globulin [Mass ratio] 1.1 {ratio} Normal 0.9-2.[address] [facility] Comment on above: Performed By: #### L 500.4100, L500.4050 ####[facility] [address] [place], [address] ALK P 65 U/L Normal 45-[address] [facility] Comment on above: Performed By: #### L 500.4100, L500.4050 ####[facility] [address] [place], [address] ALT [Catalytic activity/Vol] 31 U/L Normal 13-[address] [facility] Comment on above: Performed By: #### L 500.4100, L500.4050 ####[facility] [address] [place], [address] AST [Catalytic activity/Vol] 21 U/L Normal 15-[address] [facility] Comment on above: Performed By: #### L 500.4100, L500.4050 ####[facility] [address] [place], [address] Bilirubin [Mass/Vol] 0.50 mg/dL Normal 0.20-1.00 [facility] Comment on above: Result Comment: For patients on eltrombopag therapy, use of Dimension [place] TBIL is not recommended. Performed By: #### L 500.4100, L500.4050 ####[facility] [address] [place], [address] BUN/CRE 21.7 RATIO High 10-[address] [facility] Comment on above: Performed By: #### L 500.4100, L500.4050 ####[facility] [address] [place], [address] CA,Total 10.3 mg/dL High 8.5-10.[address] [facility] Comment on above: Performed By: #### L 500.4100, L500.4050 ####[facility] [address] [place], [address] Chloride [Moles/Vol] 107 mmol/L Normal 98-107 [facility] Comment on above: Performed By: #### L 500.4100, L500.4050 ####[facility] [address] [place], [address] CO2 [Moles/Vol] 29.0 mmol/L Normal 21.0-32.[address] [facility] Comment on above: Performed By: #### L 500.4100, L500.4050 ####[facility] [address] [place], [address] Creatinine [Mass/Vol] 0.78 mg/dL Normal 0.55-1.02 [facility] Comment on above: Result Comment: The validity of the calculated GFR GFRAA in patients over 70 years has not been determined. Clinical correlation is essential. Performed By: #### L 500.4100, L500.4050 ####[facility] [address] [place], [address] EST GFR - AA 91 mL/min Normal >[address] [facility] Comment on above: Result Comment: Afri can Brazilian GFR Calc Performed By: #### L 500.4100, L500.4050 ####[facility] [address] [place], [address] GAP 4 Low 5-[address] [facility] Comment on above: Performed By: #### L 500.4100, L500.4050 ####[facility] [address] [place], [address] GFR/1.73 sq M.predicted among non-blacks MDRD (S/P/Bld) [Vol rate/Area] 75 mL/min/{1.73_m2} Normal >[address] [facility] Comment on above: Result Comment: Non- GFR Calc Performed By: #### L 500.4100, L500.4050 ####[facility] [address] [place], [address] Globulin (S) [Mass/Vol] 3.6 g/dL Normal 2.2-4.2 [facility] Comment on above: Performed By: #### L 500.4100, L500.4050 ####[facility] [address] [place], [address] Glucose [Mass/Vol] 84 mg/dL Normal 74-106 [facility] Comment on above: Performed By: #### L 500.4100, L500.4050 ####[facility] [address] [place], [address] Potassium [Moles/Vol] 4.6 mmol/L Normal 3.5-5.1 [facility] Comment on above: Performed By: #### L 500.4100, L500.4050 ####[facility] [address] [place], [address] Sodium [Moles/Vol] 139 mmol/L Normal 136-145 [facility] Comment on above: Performed By: #### L 500.4100, L500.4050 ####[facility] [address] [place], [address] T PROT 7.6 g/dL Normal 6.4-8.[address] [facility] Comment on above: Performed By: #### L 500.4100, L500.4050 ####[facility] [address] [place], [address] Urea nitrogen [Mass/Vol] 17 mg/dL Normal 7-[address] [facility] Comment on above: Performed By: #### L 500.4100, L500.4050 ####[facility] [address] [place], [address] Internal Medicine Office Vis tunde 01-31-2024 Internal Medicine Office Visit [facility] [address] [place] [address] [place] [address] OFFICE VISIT Date of Service: 01/31/24 MR#: [id number] Acct: [id number] Name: KATIE HILLS Rep #: [id number] : 1945 Provider: Dr. 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: No Is patient in pain?: Yes (R leg) Pain scale (1-10): 6 Allergies amoxicillin (Amoxicillin) Allergy (Verified 01/31/24 13:57) Rash dexamethasone Adverse Reaction (Severe, Verified 01/31/24 13:57) Other adhesive Adverse Reaction (Verified 01/31/24 13:57) Swelling simvastatin Adverse Reaction (Verified 01/31/24 13:57) Pain in joints Medications ???Medication ???Instructions ???Recorded ???Confirmed ???Type aspirin 81 mg tablet,delayed 81 mg PO DAILY 06/03/18 01/31/24 History release (Adult Low Dose Aspirin) docusate sodium 50 mg capsule 50 mg PO DAILY 12/11/18 01/31/24 History (Stool Softener) vitamin B complex 1 cap PO DAILY 05/17/21 01/31/24 History coenzyme Q10 100 mg capsule (Co 100 mg PO DAILY 08/19/21 01/31/24 History Q-10) turmeric root extract 1,053 mg 1,076 mg PO DAILY 08/19/21 01/31/24 History tablet calcium carbonate (Calcium 600) 600 mg PO BID #90 tabs 07/04/22 01/31/24 Rx cholecalciferol (vitamin D3) 25 1,000 unit PO BID 07/04/22 01/31/24 History mcg (1,000 unit) capsule inulin 2 gram chewable tablet 4 g PO DAILY 01/26/23 01/31/24 History (Fiber Gummies) polyethylene glycol 3350 17 4 g PO DAILY 01/26/23 01/31/24 History gram/dose oral powder (Miralax) ascorbate calcium (vitamin C) 500 500 mg PO DAILY 07/30/23 01/31/24 History mg tablet ezetimibe 10 mg tablet See Rx Instructions .Route 09/03/23 01/31/24 Rx .COMPLEX #90 tabs losartan 50 mg tablet 50 mg PO DAILY #90 tabs 09/27/23 01/31/24 Rx meloxicam 15 mg tablet 15 mg PO QDAY PRN pain #90 tabs 01/31/24 01/31/24 Rx Have you fallen in the past year?: No PFSH Medical History (Updated 01/31/24 @ 14:[address] Kareem Wood MD) JUNIOR (obstructive sleep apnea) Peripheral neuropathy Right knee pain Hematuria COVID-19 Contact with or exposure to viral disease History of hiatal hernia Urinary frequency OAB (overactive bladder) Thickened endometrium Hypertension Health care maintenance Elevated blood pressure reading Wears glasses Thyroid disease Former smoker Shortness of breath on exertion History of stress test Cardiology follow-up encounter Carotid artery stenosis Hyperlipidemia History of carotid artery stenosis Surgical History History of dilation and curettage History of carpal tunnel repair History of adenoidectomy Hx of right cataract extraction Hx of left cataract extraction History of colonoscopy ( 2014) History of tonsillectomy History of laparoscopic cholecystectomy History of right-sided carotid endarterectomy ( 10/31/10) Family History Uncle Colon cancer Mother Diabetes Hypertension High cholesterol CVA (cerebral vascular accident) Thyroid disorder Heart disease Myocardial infarction Sister Diabetes Hypertension High cholesterol Kidney disease CVA (cerebral vascular accident) Grandmother Diabetes Social History Smoking Status: Former smoker alcohol intake: never substance use type: does not use HPI HPI Chief Complaint: Follow-up chronic conditions Details: KATIE HILLS, is a 78 F who presents to the office today for follow-up of her chronic conditions. Chronic right knee/lower extremity pain. Has been seen by Ortho, podiatry and vascular and she states that no significant concerns were noted. Thought is that pain is due to arthritis. Had imaging earlier on in the year by Ortho. Also had an MRI following physical therapy which was suggestive of a tear. Follows up with Dr. Gaston. Now that she knows that this is chronic she would like something to help with her pain. She states that she has been doing a lot of Advil. Stable renal function. No history of GI bleed. Recently had a sleep study which was suggestive of sleep apnea. She states that she is scheduled to get a titration and possibly start CPAP. She is looking forward to starting this. Histo (more content not included)... Normal [facility] Lipid Profileon 01-31-2024 Cholesterol [Mass/Vol] 207 mg/dL High 200 [facility] Comment on above: Result Comment: <200 mg/dL Desirable 200-240 mg/dL Borderline >240 mg/dL High Risk Performed By: #### L 500.4100, L500.4050 ####[facility] [address] [place], [address] Cholesterol in HDL [Mass/Vol] 57 mg/dL Normal [facility] Comment on above: Result Comment: The drugs N-Acetylcysteine and Metamizole may falsely depress this assay. Reference Range HDL <40 mg/dL Low HDL Cholesterol HDL >or= 60 mg/dL High HDL Cholesterol Performed By: #### L 500.4100, L500.4050 ####[facility] [address] [place], [address] Cholesterol in LDL [Mass/Vol] 128 mg/dL Normal 0-[address] [facility] Comment on above: Performed By: #### L 500.4100, L500.4050 ####[facility] [address] [place], [address] Cholesterol in VLDL [Mass/Vol] 22 mg/dL Normal 5-[address] [facility] Comment on above: Performed By: #### L 500.4100, L500.4050 ####[facility] [address] [place], [address] Triglyceride [Mass/Vol] 109 mg/dL Normal [facility] Comment on above: Result Comment: The drugs N-Acetylcysteine and Metamizole may falsely depress this assay. Serum Triglycerides Reference Interval Normal <150 mg/dL Borderline high 150 - 199 mg/dL High 200 - 499 mg/dL Very High > or = 500 mg/dL Performed By: #### L 500.4100, L500.4050 ####[facility] [address] [place], [address] Basic Metabolic Profile (BMP )on 11-02-2023 BUN/CRE 13.7 RATIO Normal 12-[address] [facility] Comment on above: Performed By: #### L 500.2500 #### [facility] [address] [place], [address] CA,Total 10.3 mg/dL High 8.5-10.[address] [facility] Comment on above: Performed By: #### L 500.2500 #### [facility] [address] [place], [address] Chloride [Moles/Vol] 108 mmol/L High 98-107 [facility] Comment on above: Performed By: #### L 500.2500 #### [facility] [address] [place], [address] CO2 [Moles/Vol] 28.0 mmol/L Normal 21.0-32.[address] [facility] Comment on above: Performed By: #### L 500.2500 #### [facility] [address] [place], [address] Creatinine [Mass/Vol] 0.80 mg/dL Normal 0.55-1.02 [facility] Comment on above: Result Comment: The validity of the calculated GFR GFRAA in patients over 70 years has not been determined. Clinical correlation is essential. Performed By: #### L 500.2500 #### [facility] [address] [place], [address] EST GFR - AA 89 mL/min Normal >[address] [facility] Comment on above: Result Comment: Afri can Brazilian GFR Calc Performed By: #### L 500.2500 #### [facility] [address] [place], [address] GAP 5 Normal 5-[address] [facility] Comment on above: Performed By: #### L 500.2500 #### [facility] [address] [place], [address] GFR/1.73 sq M.predicted among non-blacks MDRD (S/P/Bld) [Vol rate/Area] 74 mL/min/{1.73_m2} Normal >[address] [facility] Comment on above: Result Comment: Non- GFR Calc Performed By: #### L 500.2500 #### [facility] [address] [place], [address] Glucose [Mass/Vol] 99 mg/dL Normal 74-106 [facility] Comment on above: Performed By: #### L 500.2500 #### [facility] [address] [place], [address] Potassium [Moles/Vol] 4.3 mmol/L Normal 3.5-5.1 [facility] Comment on above: Performed By: #### L 500.2500 #### [facility] [address] [place], [address] Sodium [Moles/Vol] 141 mmol/L Normal 136-145 [facility] Comment on above: Performed By: #### L 500.2500 #### [facility] [address] [place], [address] Urea nitrogen [Mass/Vol] 11 mg/dL Normal 7-[address] [facility] Comment on above: Performed By: #### L 500.2500 #### [facility] [address] [place], [address] Internal Medicine Office Vis tunde 11-02-2023 Internal Medicine Office Visit [facility] [address] [place] [address] [place] [address] OFFICE VISIT Date of Service: 11/02/23 MR#: [id number] Acct: [id number] Name: KATIE HILLS Rep #: [id number] : 1945 Provider: Dr. 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 Required: No Accompanied by: Self Is patient in pain?: Yes (right leg ) Pain scale (1-10): 3 Allergies amoxicillin (Amoxicillin) Allergy (Verified 11/02/23 10:17) Rash dexamethasone Adverse Reaction (Severe, Verified 11/02/23 10:17) Other adhesive Adverse Reaction (Verified 11/02/23 10:17) Swelling simvastatin Adverse Reaction (Verified 11/02/23 10:17) Pain in joints Medications ???Medication ???Instructions ???Recorded ???Confirmed ???Type aspirin 81 mg tablet,delayed 81 mg PO DAILY 06/03/18 11/02/23 History release (Adult Low Dose Aspirin) docusate sodium 50 mg capsule 50 mg PO DAILY 12/11/18 11/02/23 History (Stool Softener) vitamin B complex 1 cap PO DAILY 05/17/21 11/02/23 History coenzyme Q10 100 mg capsule (Co 100 mg PO DAILY 08/19/21 11/02/23 History Q-10) turmeric root extract 1,053 mg 1,076 mg PO DAILY 08/19/21 11/02/23 History tablet calcium carbonate (Calcium 600) 600 mg PO BID #90 tabs 07/04/22 11/02/23 Rx cholecalciferol (vitamin D3) 25 1,000 unit PO BID 07/04/22 11/02/23 History mcg (1,000 unit) capsule rosuvastatin 5 mg tablet (Crestor) 5 mg PO WE 08/21/22 11/02/23 History inulin 2 gram chewable tablet 4 g PO DAILY 01/26/23 11/02/23 History (Fiber Gummies) polyethylene glycol 3350 17 4 g PO DAILY 01/26/23 11/02/23 History gram/dose oral powder (Miralax) ascorbate calcium (vitamin C) 500 500 mg PO DAILY 07/30/23 11/02/23 History mg tablet d-mannose 500 mg capsule mg PO 07/30/23 11/02/23 History ezetimibe 10 mg tablet See Rx Instructions .Route 09/03/23 11/02/23 Rx .COMPLEX #90 tabs losartan 50 mg tablet 50 mg PO DAILY #90 tabs 09/27/23 11/02/23 Rx Have you fallen in the past year?: No PFSH Medical History Peripheral neuropathy Right knee pain Hematuria COVID-19 Contact with or exposure to viral disease History of hiatal hernia Urinary frequency OAB (overactive bladder) Thickened endometrium Hypertension Health care maintenance Elevated blood pressure reading Wears glasses Thyroid disease Former smoker Shortness of breath on exertion History of stress test Cardiology follow-up encounter Carotid artery stenosis Hyperlipidemia History of carotid artery stenosis Surgical History History of dilation and curettage History of carpal tunnel repair History of adenoidectomy Hx of right cataract extraction Hx of left cataract extraction History of colonoscopy ( 2014) History of tonsillectomy History of laparoscopic cholecystectomy History of right-sided carotid endarterectomy ( 10/31/10) Family History Uncle Colon cancer Mother Diabetes Hypertension High cholesterol CVA (cerebral vascular accident) Thyroid disorder Heart disease Myocardial infarction Sister Diabetes Hypertension High cholesterol Kidney disease CVA (cerebral vascular accident) Grandmother Diabetes Social History Smoking Status: Former smoker alcohol intake: never substance use type: does not use HPI HPI Chief Complaint: Follow-up chronic conditions Details: KATIE HILLS, is a 77 F who presents to the office today for follow-up blood pressure/chronic conditions. Recently started on losartan due to persistently elevated blood pressure. Currently taking 50 mg daily, tolerating medication well. Blood pressure is at 130/60 mmHg. She reports ongoing right lower extremity pain. Workup done have pointed to a primary knee pathology. Had an EMG and MRI of her back. She states that an injection and therapy have been recommended by Ortho however she is yet to follow through with these recommendations. Other chronic conditions are stable. ROS Const Constitutional: No body ache, chills, excessive sweating, fatigue, fever(s), frequent falls, headache(s), snoring, weakness or change in appetite Eyes Eyes: No blurry vision, change in vision, bulging eyes, floaters, vis (more content not included)... Normal [facility] Basic Metabolic Profile (BMP )on 10-04-2023 BUN/CRE 23.6 RATIO High 10-[address] [facility] Comment on above: Performed By: #### L 500.2500 ####[facility] [address] [facility] [address] CA,Total 10.0 mg/dL Normal 8.5-10.[address] [facility] Comment on above: Performed By: #### L 500.2500 ####[facility] [address] [place], [address] Chloride [Moles/Vol] 102 mmol/L Normal 98-107 [facility] Comment on above: Performed By: #### L 500.2500 ####[facility] [address] [place], [address] CO2 [Moles/Vol] 29.0 mmol/L Normal 21.0-32.[address] [facility] Comment on above: Performed By: #### L 500.2500 ####[facility] [address] [place], [address] Creatinine [Mass/Vol] 0.80 mg/dL Normal 0.55-1.02 [facility] Comment on above: Result Comment: The validity of the calculated GFR GFRAA in patients over 70 years has not been determined. Clinical correlation is essential. Performed By: #### L 500.2500 ####[facility] [address] [place], [address] EST GFR - AA 89 mL/min Normal >[address] [facility] Comment on above: Result Comment: Afri can Brazilian GFR Calc Performed By: #### L 500.2500 ####[facility] [address] [place], [address] GAP 6 Normal 5-[address] [facility] Comment on above: Performed By: #### L 500.2500 ####[facility] [address] [place], [address] GFR/1.73 sq M.predicted among non-blacks MDRD (S/P/Bld) [Vol rate/Area] 73 mL/min/{1.73_m2} Normal >[address] [facility] Comment on above: Result Comment: Non- GFR Calc Performed By: #### L 500.2500 ####[facility] [address] [place], [address] Glucose [Mass/Vol] 103 mg/dL Normal 74-106 [facility] Comment on above: Result Comment: Fast ing Glucose result from 100 to 125 mg/dL suggests IMPAIRED HOMEOSTASIS per A.D.A. criteria. Performed By: #### L 500.2500 ####[facility] [address] [place], [address] Potassium [Moles/Vol] 4.5 mmol/L Normal 3.5-5.1 [facility] Comment on above: Performed By: #### L 500.2500 ####[facility] [address] [place], [address] Sodium [Moles/Vol] 137 mmol/L Normal 136-145 [facility] Comment on above: Performed By: #### L 500.2500 ####[facility] [address] [place], [address] Urea nitrogen [Mass/Vol] 19 mg/dL High 7-[address] [facility] Comment on above: Performed By: #### L 500.2500 ####[facility] [address] [place], [address] Hemoglobin A1con 10-04-2023 HbA1c (Bld) [Mass fraction] 5.5 % Normal 3.8-5.[address] [facility] Comment on above: Result Comment: Norm al < 5.7 % Prediabetic 5.7 - 6.4 % Diabetic >or= 6.5 % Please note range changes. Performed By: #### L 503.0105, L501.9985 #### [facility] [address] [place], [address] Vitamin B12on 10-04-2023 Cobalamin (Vitamin B12) [Mass/Vol] 613 pg/mL Normal 211-[address] [facility] Comment on above: Performed By: #### L 503.0105, L501.9985 #### [facility] [address] [place], [address] Internal Medicine Office Vis iton 09-27-2023 Internal Medicine Office Visit [facility] [address] [place], [place] [address] OFFICE VISIT Date of Service: 09/27/23 MR#: [id number] Acct: [id number] Name: KATIE HILLS Rep #: [id number] : 1945 Provider: DANNIELLE Galloway Age/Sex: 77/F Location[place] [facility] [place] Status: Signed Intake Vital Signs 09/13/23 13:12 09/27/23 13:03 Height 5 ft 7.5 in 5 ft 7.5 in Weight: 197 lb 6 oz BMI 30.4 BP 138/82 H Blood Pressure Location Lt brachial Position Sitting Respiration 16 Pulse 65 Pulse Source Monitor Temp 97.7 F L Temp Source Temporal Pulse Oximetry (%) 97 Oxygen Delivery Method room air Intake Visit Reasons: 2 wk fu Chief Complaint: 2 week f/u 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 Required: No Accompanied by: Self Is patient in pain?: No Allergies amoxicillin (Amoxicillin) Allergy (Verified 09/27/23 13:00) Rash dexamethasone Adverse Reaction (Severe, Verified 09/27/23 13:00) Other adhesive Adverse Reaction (Verified 09/27/23 13:00) Swelling simvastatin Adverse Reaction (Verified 09/27/23 13:00) Pain in joints Medications ???Medication ???Instructions ???Recorded ???Confirmed ???Type aspirin 81 mg tablet,delayed 81 mg PO DAILY 06/03/18 09/27/23 History release (Adult Low Dose Aspirin) docusate sodium 50 mg capsule 50 mg PO DAILY 12/11/18 09/27/23 History (Stool Softener) guaifenesin 1,200 mg tablet, 1,200 mg PO BID PRN Congestion 12/11/18 09/27/23 History extended release 12 hr (Mucinex) vitamin B complex 1 cap PO DAILY 05/17/21 09/27/23 History coenzyme Q10 100 mg capsule (Co 100 mg PO DAILY 08/19/21 09/27/23 History Q-10) turmeric root extract 1,053 mg 1,076 mg PO DAILY 08/19/21 09/27/23 History tablet calcium carbonate (Calcium 600) 600 mg PO BID #90 tabs 07/04/22 09/27/23 Rx cholecalciferol (vitamin D3) 25 1,000 unit PO BID 07/04/22 09/27/23 History mcg (1,000 unit) capsule rosuvastatin 5 mg tablet (Crestor) 5 mg PO WE 08/21/22 09/27/23 History inulin 2 gram chewable tablet 4 g PO DAILY 01/26/23 09/27/23 History (Fiber Gummies) polyethylene glycol 3350 17 4 g PO DAILY 01/26/23 09/27/23 History gram/dose oral powder (Miralax) ascorbate calcium (vitamin C) 500 500 mg PO DAILY 07/30/23 09/27/23 History mg tablet d-mannose 500 mg capsule mg PO 07/30/23 09/27/23 History glucosamine sulfate 1,000 mg 2,000 mg PO DAILY 07/30/23 09/27/23 History capsule ezetimibe 10 mg tablet See Rx Instructions .Route 09/03/23 09/27/23 Rx .COMPLEX #90 tabs lorazepam 1 mg tablet (Ativan) 1 mg PO TID PRN anxiety #10 tabs 09/05/23 09/27/23 Rx losartan 25 mg tablet 50 mg (2 x 25 mg) PO DAILY #30 tabs 09/18/23 09/27/23 Rx losartan 50 mg tablet 50 mg PO DAILY #90 tabs 09/27/23 09/27/23 Rx Have you fallen in the past year?: No PFSH Medical History Right knee pain Hematuria COVID-19 Contact with or exposure to viral disease History of hiatal hernia Urinary frequency OAB (overactive bladder) Thickened endometrium Hypertension Health care maintenance Elevated blood pressure reading Wears glasses Thyroid disease Former smoker Shortness of breath on exertion History of stress test Cardiology follow-up encounter Carotid artery stenosis Hyperlipidemia History of carotid artery stenosis Surgical History History of dilation and curettage History of carpal tunnel repair History of adenoidectomy Hx of right cataract extraction Hx of left cataract extraction History of colonoscopy ( 2014) History of tonsillectomy History of laparoscopic cholecystectomy History of right-sided carotid endarterectomy ( 10/31/10) Family History Uncle Colon cancer Mother Diabetes Hypertension High cholesterol CVA (cerebral vascular accident) Thyroid disorder Heart disease Myocardial infarction Sister Diabetes Hypertension High cholesterol Kidney disease CVA (cerebral vascular accident) Grandmother Diabetes Social History Smoking Status: Former smoker alcohol intake: never substance use type: does not use HPI HPI Chief Complaint: 2 week f/u Details: KATIE HILLS, is a 77 F who presents to the office today for recheck of her HTN. She has been taking the blood pressure medications as directed (she dd switch to take this at night). She has seen very good improvements in her numbers stating that she has only had one episode where the systolic was over 160 systolically. She has not had any headaches, dizziness, nausea, vomiting, pallor, or diaphoresis. She states that she has been feeling more calm and not as anxious although she states that she has had some stress with having some issues w (more content not included)... Normal [facility] NCS and/or EMG Patienton NCS and/or EMG Patient [facility] Pulmonary Services/Neurology [address] [place] [address] MR#: [id number] Acct: [id number] Name: KATIE HILLS Rep #: [id number] : 1945 77 From: Mary Mitchell MD Referring Dr: Arnoldo Lazaro DO Status: REG CLI Location: PSN Date: 09/26/23 Sex: F C NCS and/or EMG Patient Report Ordering Doctor: Arnoldo Lazaro DATE OF SERVICE: 09/26/23 Katie presents with complaints of an aching pain in the right knee. She reports numbness in both feet. Electrodiagnostic findings: Right peroneal motor nerve demonstrates normal distal latency, amplitude and conduction velocity. Left peroneal motor nerve demonstrates normal distal latency, amplitude and conduction velocity. Tibial motor responses within normal limits bilaterally. Prolonged peroneal and tibial F???waves prolonged H???reflux bilaterally. Prolonged right sural latency is noted borderline prolonged left sural latency. Needle EMG testing was performed in the lower limbs. All muscles tested showed no evidence of denervation with normal motor unit action potentials. Electrodiagnostic impression: This is an abnormal study in the lower limbs 1. 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 2. There is no electrodiagnostic evidence for lumbosacral radiculopathy. Multi Select Codes Neurology Neurology Interp Codes: 42830-87 Musc test done w/n test comp (interp) (2) and 11376-58 Nr cndj test 9-10 studies (interp) 09/26/23 1359 Date Mary Mitchell MD CC: Dr. Mary Mitchell MD; Dr. Kareem Wood MD; Dr. Arnoldo Lazaro DO Date Dictated: 09/26/23 1356 Date Transcribed: 08/14/24 1356 Grease Maker Head: SHANA Signed Normal [facility] Carotid Duplex Ultrasoundon 09-18-2023 Carotid Duplex Ultrasound [facility] Cardiovascular Services [address] [place] [address] Carotid Duplex Ultrasound 09/18/23 1346 MR#: [id number] Acct: [id number] Name: KATIE HILLS Rep #: [id number] : 1945 77 From: Porter Saldaña MD Attending Dr: DANNIELLE Sadler Status: REG CLI Ordering Dr: Cindy Gardiner Date: 09/18/23 Location: [facility] Sex: F C Admitted: Reason For Study: S/P Rt CEA Rt. Velocities/BP Lt. Velocities/BP Prox CCA 74.9/13.5 cm/sec. Prox CCA 77.8/13.5 cm/sec. Mid CCA 57.9/11.6 cm/sec. Mid CCA 65.5/11.6 cm/sec. Dist CCA 67.4/14.5 cm/sec. Dist CCA 64.5/12.6 cm/sec. Prox ICA 44.7/9.7 cm/sec. Prox ICA 106/23.7 cm/sec. Mid ICA 54.1/15.4 cm/sec. Mid ICA 117.4/22.5 cm/sec. Dist ICA 69.2/23 cm/sec. Dist ICA 87.6/22.5 cm/sec. Rt. ICA/CCA = 1.20. Lt. ICA/CCA = 1.79. Prox ECA 85.3/6 cm/sec. Prox ECA 75.9/6 cm/sec. Lt. Vert. 66.7/17.6 cm/sec. Right Extracranial There is homogeneous, smooth atherosclerotic plaque noted in the right common carotid artery. There is heterogeneous, irregular atherosclerotic plaque noted in the right internal carotid artery. There is intimal thickening but no significant atherosclerotic plaque noted in the right external carotid artery. Bidirectional flow noted in the right vertebral artery. Left Extracranial There is homogeneous, smooth atherosclerotic plaque noted in the left common carotid artery. There is heterogeneous, irregular atherosclerotic plaque noted in the left internal carotid artery. There is intimal thickening but no significant atherosclerotic plaque noted in the left external carotid artery. Antegrade flow is noted in the left vertebral artery. Procedure Carotid Duplex 22637. This is a Carotid Duplex examination using B-mode, color flow and specral Doppler. Exam performed in department. VL/Carotid Duplex Ultrasound Interpretation Summary Mild (<50%) stenosis right extracranial internal carotid. Mild (<50%) stenosis left extracranial internal carotid. The Right vertebral flow is bidirectional. The Left vertebral is patent and antegrade. Ordering Physician: Cindy Gardiner Referring Physician: Kareem Wood Performed By: Blanca Covarrubias RVT 09/18/23 1648 Date Porter Saldaña MD CC: DANNIELLE Sadler; Dr. Kareem Wood MD Date Dictated: 09/18/23 1346 Date Transcribed: 09/18/231647 Grease Maker Head: Tanvir Bhardwaj [facility] Internal Medicine Office Vis itoedenilson 09-13-2023 Internal Medicine Office Visit [facility] [address] [place] [address] [address] [place] [address] OFFICE VISIT Date of Service: 09/13/23 MR#: [id number] Acct: [id number] Name: KATIE HILLS Rep #: [id number] : 1945 Provider: DANNIELLE Galloway Age/Sex: 77/F Location[place] [facility] Status: Signed Intake Vital Signs 09/05/23 00:36 09/13/23 13:12 09/13/23 13:13 Height 5 ft 7 in 5 ft 7.5 in Weight: 195 lb BMI 30.0 BP 198/98 H 184/98 H Blood Pressure Location Lt brachial Lt brachial Position Sitting Respiration 17 Pulse 82 Pulse Source Monitor Temp 97.6 F L Temp Source Temporal Pulse Oximetry (%) 96 Oxygen Delivery Method room air Intake Visit Reasons: ACUTE [facility] FU Chief Complaint: ACUTE [facility] FU Is patient in pain?: Yes (3 in left leg ) Allergies amoxicillin (Amoxicillin) Allergy (Verified 09/13/23 13:10) Rash dexamethasone Adverse Reaction (Severe, Verified 09/13/23 13:10) Other adhesive Adverse Reaction (Verified 09/13/23 13:10) Swelling simvastatin Adverse Reaction (Verified 09/13/23 13:10) Pain in joints Medications ???Medication ???Instructions ???Recorded ???Confirmed ???Type aspirin 81 mg tablet,delayed 81 mg PO DAILY 06/03/18 09/13/23 History release (Adult Low Dose Aspirin) docusate sodium 50 mg capsule 50 mg PO DAILY 12/11/18 09/13/23 History (Stool Softener) guaifenesin 1,200 mg tablet, 1,200 mg PO BID PRN Congestion 12/11/18 09/13/23 History extended release 12 hr (Mucinex) vitamin B complex 1 cap PO DAILY 05/17/21 09/13/23 History coenzyme Q10 100 mg capsule (Co 100 mg PO DAILY 08/19/21 09/13/23 History Q-10) turmeric root extract 1,053 mg 1,076 mg PO DAILY 08/19/21 09/13/23 History tablet calcium carbonate (Calcium 600) 600 mg PO BID #90 tabs 07/04/22 09/13/23 Rx cholecalciferol (vitamin D3) 25 1,000 unit PO BID 07/04/22 09/13/23 History mcg (1,000 unit) capsule rosuvastatin 5 mg tablet (Crestor) 5 mg PO WE 08/21/22 09/13/23 History inulin 2 gram chewable tablet 4 g PO DAILY 01/26/23 09/13/23 History (Fiber Gummies) polyethylene glycol 3350 17 4 g PO DAILY 01/26/23 09/13/23 History gram/dose oral powder (Miralax) ascorbate calcium (vitamin C) 500 500 mg PO DAILY 07/30/23 09/13/23 History mg tablet d-mannose 500 mg capsule mg PO 07/30/23 09/13/23 History glucosamine sulfate 1,000 mg 2,000 mg PO DAILY 07/30/23 09/13/23 History capsule ezetimibe 10 mg tablet See Rx Instructions .Route 09/03/23 09/13/23 Rx .COMPLEX #90 tabs lorazepam 1 mg tablet (Ativan) 1 mg PO TID PRN anxiety #10 tabs 09/05/23 09/13/23 Rx losartan 25 mg tablet 50 mg (2 x 25 mg) PO DAILY #30 tabs 09/13/23 09/13/23 Rx Have you fallen in the past year?: No Nurse's Note: pt is concerned about her bP readings, she has a log of her most recent readings for review pt is having pain of 3 in left knee and left leg that started in March, requesting referral to [facility] Medical History Right knee pain Hematuria COVID-19 Contact with or exposure to viral disease History of hiatal hernia Urinary frequency OAB (overactive bladder) Thickened endometrium Hypertension Health care maintenance Elevated blood pressure reading Wears glasses Thyroid disease Former smoker Shortness of breath on exertion History of stress test Cardiology follow-up encounter Carotid artery stenosis Hyperlipidemia History of carotid artery stenosis Surgical History History of dilation and curettage History of carpal tunnel repair History of adenoidectomy Hx of right cataract extraction Hx of left cataract extraction History of colonoscopy ( 2014) History of tonsillectomy History of laparoscopic cholecystectomy History of right-sided carotid endarterectomy ( 10/31/10) Family History Uncle Colon cancer Mother Diabetes Hypertension High cholesterol CVA (cerebral vascular accident) Thyroid disorder Heart disease Myocardial infarction Sister Diabetes Hypertension High cholesterol Kidney disease CVA (cerebral vascular accident) Grandmother Diabetes Social History Smoking Status: Former smoker alcohol intake: never substance use type: does not use HPI HPI Chief Complaint: ACUTE H FU Details: KATIE HILLS, is a 77 F who presents to the office today for hospital f/u. for her BP. She states that she has not previous blood pressure issues until a couple weeks ago. She states that she has periodically checked it in the past and occasionally has had some minor elevations but nothing like the past few weeks. She had gone to her vascular appointment and they could not get (more content not included)... Normal [facility] Office Visit Reporton [address] [facility] [address] [place] [address] OFFICE VISIT Date of Service: 09/06/23 MR#: [id number] Acct: [id number] Patient: KATIE HILLS Rep #: [id number] : 1945 Provider: ARNEL NURSE Age/Sex: 77/F Location[place] [facility] Status: Signed Intake Vital Signs 09/05/23 00:36 09/06/23 15:21 09/06/23 15:21 Height 5 ft 7 in BP 140/82 H 175/90 H Blood Pressure Location Lt brachial Lt radial Position Sitting Sitting Respiration 16 Pulse 76 Pulse Source Monitor Pulse Oximetry (%) 99 Oxygen Delivery Method room air Comment pt wrist cuff Intake Visit Reasons: BP CHECK Chief Complaint: bp check Allergies amoxicillin (Amoxicillin) Allergy (Verified 09/05/23 00:36) Rash dexamethasone Adverse Reaction (Severe, Verified 09/05/23 00:36) Other adhesive Adverse Reaction (Verified 09/05/23 00:36) Swelling simvastatin Adverse Reaction (Verified 09/05/23 00:36) Pain in joints Medications ???Medication ???Instructions ???Recorded ???Confirmed ???Type aspirin 81 mg tablet,delayed 81 mg PO DAILY 06/03/18 09/06/23 History release (Adult Low Dose Aspirin) docusate sodium 50 mg capsule 50 mg PO DAILY 12/11/18 09/06/23 History (Stool Softener) guaifenesin 1,200 mg tablet, 1,200 mg PO BID PRN Congestion 12/11/18 09/06/23 History extended release 12 hr (Mucinex) vitamin B complex 1 cap PO DAILY 05/17/21 09/06/23 History coenzyme Q10 100 mg capsule (Co 100 mg PO DAILY 08/19/21 09/06/23 History Q-10) turmeric root extract 1,053 mg 1,076 mg PO DAILY 08/19/21 09/06/23 History tablet calcium carbonate (Calcium 600) 600 mg PO BID #90 tabs 07/04/22 09/06/23 Rx cholecalciferol (vitamin D3) 25 1,000 unit PO BID 07/04/22 09/06/23 History mcg (1,000 unit) capsule rosuvastatin 5 mg tablet (Crestor) 5 mg PO WE 08/21/22 09/06/23 History inulin 2 gram chewable tablet 4 g PO DAILY 01/26/23 09/06/23 History (Fiber Gummies) polyethylene glycol 3350 17 4 g PO DAILY 01/26/23 09/06/23 History gram/dose oral powder (Miralax) ascorbate calcium (vitamin C) 500 500 mg PO DAILY 07/30/23 09/06/23 History mg tablet d-mannose 500 mg capsule mg PO 07/30/23 09/06/23 History glucosamine sulfate 1,000 mg 2,000 mg PO DAILY 07/30/23 09/06/23 History capsule ezetimibe 10 mg tablet See Rx Instructions .Route 09/03/23 09/06/23 Rx .COMPLEX #90 tabs lorazepam 1 mg tablet (Ativan) 1 mg PO TID PRN anxiety #10 tabs 09/05/23 09/06/23 Rx Have you fallen in the past year?: No Nurse's Note: pt presents for bp check pt bp cuff today reads 175/90 p-77 our reading-140/82 p-76 pt states has had a lot of anxiety and feels this brings her BP readings up, pt denies any chest pain or SOB. she advised she is feeling very tired. pt wants to ensure that she can take her Ativan prn, but also concerned about her bp being elevated and is wanting bp medication. message sent to Destinee. Clinical Quality Measures Falls Risk Screening/Assistive Devices Have you fallen in the past year?: No 09/06/23 1704 Date Destinee SALINAS Coscomforter Signature: Date (if applicable) CC: Normal [facility] 12 Lead EKGon 09-05-2023 12 Lead EKG [facility] Cardiovascular Services [address] [place] [place] [address] 12 Lead EKG 09/05/23 0056 MR#: [id number] Acct: [id number] Name: KATIE HILLS Rep #: [id number] : 1945 77 From: Rhys Pop MD Attending Dr: Status: DEP ER Ordering Dr: William Whaley DO Date: 09/05/23 Location: ED Sex: F C Admitted: Test Reason : DYSRHYTHMIA Blood Pressure : / mmHG Vent. Rate : 064 BPM Atrial Rate : 064 BPM P-R Int : 164 ms QRS Dur : 082 ms QT Int : 390 ms P-R-T Axes : 029 -05 026 degrees QTc Int : 402 ms Normal sinus rhythm Normal ECG Confirmed by DONN JOSE, RHYS ([id number]), makeup editor CAMPBELL LILLY ([id number]) on 09/05/2023 8:59:32 AM Referred By: Confirmed By:RHYS POP MD 09/05/23 0859 Date Rhys Pop MD CC: Dr. Kareem Wood MD; Dr. William Whaley DO Signed Normal [facility] Basic Metabolic Profile (BMP )on 09-05-2023 BUN/CRE 24.9 RATIO High 10-[address] [facility] Comment on above: Order Comment: 'TROP ' Serial specimen #1, #2 or #3: 1 Performed By: #### L 501.4020, L500.2500, L100.0100 ####[facility] [address] [place], [address] CA,Total 10.2 mg/dL High 8.5-10.[address] [facility] Comment on above: Order Comment: 'TROP ' Serial specimen #1, #2 or #3: 1 Performed By: #### L 501.4020, L500.2500, L100.0100 ####[facility] [address] [place], [address] Chloride [Moles/Vol] 106 mmol/L Normal 98-107 [facility] Comment on above: Order Comment: 'TROP ' Serial specimen #1, #2 or #3: 1 Performed By: #### L 501.4020, L500.2500, L100.0100 ####[facility] [address] [place], [address] CO2 [Moles/Vol] 29.0 mmol/L Normal 21.0-32.[address] [facility] Comment on above: Order Comment: 'TROP ' Serial specimen #1, #2 or #3: 1 Performed By: #### L 501.4020, L500.2500, L100.0100 ####[facility] [address] [place], [address] Creatinine [Mass/Vol] 0.80 mg/dL Normal 0.55-1.02 [facility] Comment on above: Order Comment: 'TROP ' Serial specimen #1, #2 or #3: 1 Result Comment: The validity of the calculated GFR GFRAA in patients over 70 years has not been determined. Clinical correlation is essential. Performed By: #### L 501.4020, L500.2500, L100.0100 ####[facility] [address] [place], [address] ECRCL 66.79 ml/min Normal [facility] Comment on above: Order Comment: 'TROP ' Serial specimen #1, #2 or #3: 1 Performed By: #### L 501.4020, L500.2500, L100.0100 ####[facility] [address] [place], [address] EST GFR - AA 89 mL/min Normal >[address] [facility] Comment on above: Order Comment: 'TROP ' Serial specimen #1, #2 or #3: 1 Result Comment: Afri can Brazilian GFR Calc Performed By: #### L 501.4020, L500.2500, L100.0100 ####[facility] [address] [place], [address] GAP 5 Normal 5-[address] [facility] Comment on above: Order Comment: 'TROP ' Serial specimen #1, #2 or #3: 1 Performed By: #### L 501.4020, L500.2500, L100.0100 ####[facility] [address] [place], [address] GFR/1.73 sq M.predicted among non-blacks MDRD (S/P/Bld) [Vol rate/Area] 73 mL/min/{1.73_m2} Normal >[address] [facility] Comment on above: Order Comment: 'TROP ' Serial specimen #1, #2 or #3: 1 Result Comment: Non- GFR Calc Performed By: #### L 501.4020, L500.2500, L100.0100 ####[facility] [address] [place], [address] Glucose [Mass/Vol] 106 mg/dL Normal 74-106 [facility] Comment on above: Order Comment: 'TROP ' Serial specimen #1, #2 or #3: 1 Result Comment: Fast ing Glucose result from 100 to 125 mg/dL suggests IMPAIRED HOMEOSTASIS per A.D.A. criteria. Performed By: #### L 501.4020, L500.2500, L100.0100 ####[facility] [address] [place], [address] Potassium [Moles/Vol] 3.9 mmol/L Normal 3.5-5.1 [facility] Comment on above: Order Comment: 'TROP ' Serial specimen #1, #2 or #3: 1 Performed By: #### L 501.4020, L500.2500, L100.0100 ####[facility] [address] [place], [address] Sodium [Moles/Vol] 140 mmol/L Normal 136-145 [facility] Comment on above: Order Comment: 'TROP ' Serial specimen #1, #2 or #3: 1 Performed By: #### L 501.4020, L500.2500, L100.0100 ####[facility] [address] [place], [address] Urea nitrogen [Mass/Vol] 20 mg/dL High 7-[address] [facility] Comment on above: Order Comment: 'TROP ' Serial specimen #1, #2 or #3: 1 Performed By: #### L 501.4020, L500.2500, L100.0100 ####[facility] [address] [place], [address] CBC W/Diff, Automatedon 07-2023 Absolute Lymph 3.09 X10 3/uL Normal 0.83-4.[address] [facility] Comment on above: Performed By: #### L 501.4020, L500.2500, L100.0100 ####[facility] [address] [place], [address] Absolute Neut 3.2 X10 3/uL Normal 2.0-7.[address] [facility] Comment on above: Performed By: #### L 501.4020, L500.2500, L100.0100 ####[facility] [address] [place], [address] Basophils/100 WBC (Bld) 1.0 % Normal 0-1 [facility] Comment on above: Performed By: #### L 501.4020, L500.2500, L100.0100 ####[facility] [address] [place], [address] Eosinophils/100 WBC (Bld) 2.0 % Normal 0-[address] [facility] Comment on above: Performed By: #### L 501.4020, L500.2500, L100.0100 ####[facility] [address] [place], [address] Erythrocyte distribution width (RBC) [Ratio] 11.7 % Normal 11.6-14.[address] [facility] Comment on above: Performed By: #### L 501.4020, L500.2500, L100.0100 ####[facility] [address] [place], [address] Hematocrit (Bld) [Volume fraction] 40.4 % Normal 37-[address] [facility] Comment on above: Performed By: #### L 501.4020, L500.2500, L100.0100 ####[facility] [address] [place], [address] Hemoglobin (Bld) [Mass/Vol] 13.6 g/dL Normal 12.0-15.[address] [facility] Comment on above: Performed By: #### L 501.4020, L500.2500, L100.0100 ####[facility] [address] [place], [address] IG% 0.300 Normal 0.0-0.[address] [facility] Comment on above: Result Comment: IG% - Immature Granulocytes (promyelocytes, myelocytes and metamyelocytes) > 1% indicates that a LEFT SHIFT is Present. Performed By: #### L 501.4020, L500.2500, L100.0100 ####[facility] [address] [place], [address] Lymphocytes/100 WBC (Bld) 44.0 % High 19-[address] [facility] Comment on above: Performed By: #### L 501.4020, L500.2500, L100.0100 ####[facility] [address] [place], [address] MCH (RBC) [Entitic mass] 29.3 pg Normal 27.0-32.[address] [facility] Comment on above: Performed By: #### L 501.4020, L500.2500, L100.0100 ####[facility] [address] [place], [address] MCHC (RBC) [Mass/Vol] 33.7 g/dL Normal 32-36 [facility] Comment on above: Performed By: #### L 501.4020, L500.2500, L100.0100 ####[facility] [address] [place], [address] MCV (RBC) [Entitic vol] 87.1 fL Normal 81-99 [facility] Comment on above: Performed By: #### L 501.4020, L500.2500, L100.0100 ####[facility] [address] [place], [address] Monocytes/100 WBC (Bld) 7.5 % Normal 0-10 [facility] Comment on above: Performed By: #### L 501.4020, L500.2500, L100.0100 ####[facility] [address] [place], [address] Neutrophils/100 WBC (Bld) 45.2 % Low 47-[address] [facility] Comment on above: Performed By: #### L 501.4020, L500.2500, L100.0100 ####[facility] [address] [place], [address] Nucleated RBC (Bld) [#/Vol] 0 10*3/uL Normal 0-[address] [facility] Comment on above: Performed By: #### L 501.4020, L500.2500, L100.0100 ####[facility] [address] [place], [address] Platelet mean volume (Bld) [Entitic vol] 9.9 fL Normal 6.2-12.[address] [facility] Comment on above: Performed By: #### L 501.4020, L500.2500, L100.0100 ####[facility] [address] [place], [address] Platelets (Bld) [#/Vol] 216 10*3/uL Normal 150-[address] [facility] Comment on above: Performed By: #### L 501.4020, L500.2500, L100.0100 ####[facility] [address] [place], [address] RBC (Bld) [#/Vol] 4.64 10*6/uL Normal 4.2-5.4 [facility] Comment on above: Performed By: #### L 501.4020, L500.2500, L100.0100 ####[facility] [address] [place], [address] RDW SD 37.3 fl Normal 35.1-43.[address] [facility] Comment on above: Performed By: #### L 501.4020, L500.2500, L100.0100 ####[facility] [address] [place], [address] WBC (Bld) [#/Vol] 7.0 10*3/uL Normal 4.4-11.0 [facility] Comment on above: Performed By: #### L 501.4020, L500.2500, L100.0100 ####[facility] [address] [place], [address] Emergency Department Summary on 09-05-2023 Emergency Department Summary [facility] Medical Records Department [address] [place] [address] Emergency Department Summary 09/05/23 MR#: [id number] Acct: [id number] Name: KATIE HILLS Rep #: [id number] : 1945 77 From: William Whaley DO PCP: Dr. Kareem Wood MD Status:DEP ER Location: ED HPI History of Present Illness Chief Complaint: Hypertension Detail of Chief Complaint: High blood pressure Informant: patient Narrative Narrative: Patient presents emergency department complaint of high blood pressure today. Patient states that she saw her primary care physician today and her pressure was elevated there and could not get it down below 180 with relaxation. She was told that if her pressure remained elevated to come to the emergency department. She is currently not on blood pressure medicine. She does have history of hypertension. Patient also states that she has been more agitated over the last 3 weeks. She has been under more stress. She has had some issues with her right leg for which she saw Dr. Saldñaa today. She has had prior history of a carotid endarterectomy. She denies chest pain or shortness of breath. She denies headaches. Patient has been taken ibuprofen and Tylenol daily for the last 3 weeks because she has had a lot of pain in her right knee that is chronic. She has had prior injections in the right knee. She has had physical therapy for it. [facility] Medical History (Updated 09/05/23 @ 02:[address] William Whaley, DO) Right knee pain Hematuria COVID-19 Contact with or exposure to viral disease History of hiatal hernia Urinary frequency OAB (overactive bladder) Thickened endometrium Hypertension Health care maintenance Elevated blood pressure reading Wears glasses Thyroid disease Former smoker Shortness of breath on exertion History of stress test Cardiology follow-up encounter Carotid artery stenosis Hyperlipidemia History of carotid artery stenosis Home Medications ???Medication ???Instructions ???Recorded ???Last Taken ???Type aspirin 81 mg tablet,delayed 81 mg PO DAILY 06/03/18 10/19/22 History release (Adult Low Dose Aspirin) docusate sodium 50 mg capsule 50 mg PO DAILY 12/11/18 Unknown History (Stool Softener) guaifenesin 1,200 mg tablet, 1,200 mg PO BID PRN Congestion 12/11/18 Unknown History extended release 12 hr (Mucinex) vitamin B complex 1 cap PO DAILY 05/17/21 Unknown History coenzyme Q10 100 mg capsule (Co 100 mg PO DAILY 08/19/21 Unknown History Q-10) turmeric root extract 1,053 mg 1,076 mg PO DAILY 08/19/21 Unknown History tablet calcium carbonate (Calcium 600) 600 mg PO BID #90 tabs 07/04/22 Unknown Rx cholecalciferol (vitamin D3) 25 1,000 unit PO BID 07/04/22 Unknown History mcg (1,000 unit) capsule rosuvastatin 5 mg tablet (Crestor) 5 mg PO WE 08/21/22 Unknown History inulin 2 gram chewable tablet 4 g PO DAILY 01/26/23 Unknown History (Fiber Gummies) polyethylene glycol 3350 17 4 g PO DAILY 01/26/23 Unknown History gram/dose oral powder (Miralax) ascorbate calcium (vitamin C) 500 500 mg PO DAILY 07/30/23 Unknown History mg tablet d-mannose 500 mg capsule mg PO 07/30/23 Unknown History glucosamine sulfate 1,000 mg 2,000 mg PO DAILY 07/30/23 Unknown History capsule ezetimibe 10 mg tablet See Rx Instructions .Route 09/03/23 Unknown Rx .COMPLEX #90 tabs lorazepam 1 mg tablet (Ativan) 1 mg PO TID PRN anxiety #10 tabs 09/05/23 Unknown Rx Allergy/AdvReac Type Severity Reaction Status Date / Time amoxicillin (Amoxicillin) Allergy Rash Verified 09/05/23 00:36 dexamethasone AdvReac Severe Other Verified 09/05/23 00:36 adhesive AdvReac Swelling Verified 09/05/23 00:36 simvastatin AdvReac Pain in Verified 09/05/23 00:36 joints Family History Uncle Colon cancer Mother Diabetes Hypertension High cholesterol CVA (cerebral vascular accident) Thyroid disorder Heart disease Myocardial infarction Sister Diabetes Hypertension High cholesterol Kidney disease CVA (cerebral vascular accident) Grandmother Diabetes Surgical History History of dilation and curettage History of carpal tunnel repair History of adenoidectomy Hx of right cataract extraction Hx of left cataract extraction History of colonoscopy ( 2014) History of tonsillectomy History of laparoscopic cholecystectomy History of right-sided carotid endarterectomy ( 10/31/10) Social History Smoking Status: Former smoker alcohol intake: never substance use type: does not use ROS ROS ED ROS Narrative Hypertension Review of Systems ROS Unobtainable: other Constitutional Constitutional ED: Reports lethargy; Denies chills, fever(s), (more content not included)... Normal [facility] L501.4020on 09-05-2023 TROPONIN-I HS 7 pg/mL Normal 3.0-54.[address] [facility] Comment on above: Order Comment: COLLE CTOR TO SPECIFY Result Comment: Bora kaufman Note: New Test Units and Gender Specific Reference Ranges. For more information see Policy Stat Procedure [place] High Sensitivity Troponin (TNIH) and attachments. Performed By: #### L 400.0001 #### [facility] [address] [place], [address] Urinalysis, Completeon 09-04 EPI,SQUAMOUS 0-5 SEEN Normal 5-[address] [facility] Comment on above: Order Comment: CLEAN CATCH Performed By: #### L 400.0001 ####[facility] [address] [place], [address] BACTERIA 0 SEEN Normal None Seen [facility] Comment on above: Order Comment: CLEAN CATCH Performed By: #### L 400.0001 ####[facility] [address] [place], [address] Mucus Ql (Urine sed) 0 SEEN Normal [facility] Comment on above: Order Comment: CLEAN CATCH Performed By: #### L 400.0001 ####[facility] [address] [place], [address] RBC 0 SEEN Normal 0-[address] [facility] Comment on above: Order Comment: CLEAN CATCH Performed By: #### L 400.0001 ####[facility] [address] [place], [address] WBC 0 SEEN Normal 0-[address] [facility] Comment on above: Order Comment: CLEAN CATCH Performed By: #### L 400.0001 ####[facility] [address] [place], [address] MR/BMSSergo 09-04-2023 MR/BMS.RHIANNONS [facility] Vascular Surgery [address] [place] [address] OFFICE VISIT Date of Service: 09/04/23 MR#: [id number] Acct: [id number] Name: KATIE HILLS Rep #: [id number] : 1945 Provider: DANNIELLE Sadler Age/Sex: 77/F [place] [facility] Status: Signed Intake Vital Signs 07/30/23 10:54 09/04/23 15:08 Height 5 ft 7 in Weight: 196 lb 8 oz BP 180/100 H Blood Pressure Location Lt brachial Position Sitting Respiration 16 Pulse 70 Pulse Source Monitor Temp 97.8 F Temp Source Temporal Pulse Oximetry (%) 98 Oxygen Delivery Method room air Intake Visit Reasons: CONSULT-VARICOSE VEINS Chief Complaint: 6 m fu Is patient in pain?: No Allergies amoxicillin (Amoxicillin) Allergy (Verified 09/05/23 00:36) Rash dexamethasone Adverse Reaction (Severe, Verified 09/05/23 00:36) Other adhesive Adverse Reaction (Verified 09/05/23 00:36) Swelling simvastatin Adverse Reaction (Verified 09/05/23 00:36) Pain in joints Medications ???Medication ???Instructions ???Recorded ???Confirmed ???Type aspirin 81 mg tablet,delayed 81 mg PO DAILY 06/03/18 09/05/23 History release (Adult Low Dose Aspirin) docusate sodium 50 mg capsule 50 mg PO DAILY 12/11/18 09/05/23 History (Stool Softener) guaifenesin 1,200 mg tablet, 1,200 mg PO BID PRN Congestion 12/11/18 09/05/23 History extended release 12 hr (Mucinex) vitamin B complex 1 cap PO DAILY 05/17/21 09/05/23 History coenzyme Q10 100 mg capsule (Co 100 mg PO DAILY 08/19/21 09/05/23 History Q-10) turmeric root extract 1,053 mg 1,076 mg PO DAILY 08/19/21 09/05/23 History tablet calcium carbonate (Calcium 600) 600 mg PO BID #90 tabs 07/04/22 09/05/23 Rx cholecalciferol (vitamin D3) 25 1,000 unit PO BID 07/04/22 09/05/23 History mcg (1,000 unit) capsule rosuvastatin 5 mg tablet (Crestor) 5 mg PO WE 08/21/22 09/05/23 History inulin 2 gram chewable tablet 4 g PO DAILY 01/26/23 09/05/23 History (Fiber Gummies) polyethylene glycol 3350 17 4 g PO DAILY 01/26/23 09/05/23 History gram/dose oral powder (Miralax) ascorbate calcium (vitamin C) 500 500 mg PO DAILY 07/30/23 09/05/23 History mg tablet d-mannose 500 mg capsule mg PO 07/30/23 09/04/23 History glucosamine sulfate 1,000 mg 2,000 mg PO DAILY 07/30/23 09/05/23 History capsule ezetimibe 10 mg tablet See Rx Instructions .Route 09/03/23 09/05/23 Rx .COMPLEX #90 tabs lorazepam 1 mg tablet (Ativan) 1 mg PO TID PRN anxiety #10 tabs 09/05/23 Rx Have you fallen in the past year?: No PFSH Medical History (Updated 09/06/23 @ 07:31 by DANNIELLE Sadler) Right knee pain Hematuria COVID-19 Contact with or exposure to viral disease History of hiatal hernia Urinary frequency OAB (overactive bladder) Thickened endometrium Hypertension Health care maintenance Elevated blood pressure reading Wears glasses Thyroid disease Former smoker Shortness of breath on exertion History of stress test Cardiology follow-up encounter Carotid artery stenosis Hyperlipidemia History of carotid artery stenosis Surgical History History of dilation and curettage History of carpal tunnel repair History of adenoidectomy Hx of right cataract extraction Hx of left cataract extraction History of colonoscopy ( 2014) History of tonsillectomy History of laparoscopic cholecystectomy History of right-sided carotid endarterectomy ( 10/31/10) Family History Uncle Colon cancer Mother Diabetes Hypertension High cholesterol CVA (cerebral vascular accident) Thyroid disorder Heart disease Myocardial infarction Sister Diabetes Hypertension High cholesterol Kidney disease CVA (cerebral vascular accident) Grandmother Diabetes Social History Smoking Status: Former smoker alcohol intake: never substance use type: does not use HPI HPI HPI: KATIE HILLS, is a 77 F who presents to the office today for evaluation of varicose veins and RLE pain. She reports pain primarily around her R knee which is worse with ambulation. She gets some burning pain and aching into the calf and also has a tightness like a vice around her foot with walking. The pain/aching and burning seem to improve with compression, she uses a sleeve from ankle to below knee and then a knee brace. She has known knee arthritis and ligament injury, follows with orthopedics. She had a cortisone injection which helped a lot with her pain but these results lasted about 3 months. She wants to rule out other possible contributors to pain prior to proceeding with more knee injections. She also has an upcoming appt with podiatry. She has forrest (more content not included)... Normal [facility] Internal Medicine Office Vis tunde 07-30-2023 Internal Medicine Office Visit [facility] [address] [place] [address] [place] [address] OFFICE VISIT Date of Service: 07/30/23 MR#: [id number] Acct: [id number] Name: KATIE HILLS Rep #: [id number] : 1945 Provider: Dr. Kareem nunez MD Age/Sex: 77/F Location[place] [facility] [place] Status: Signed Intake Vital Signs 01/26/23 14:51 07/30/23 10:54 Height 5 ft 7 in 5 ft 7 in Weight: 194 lb BMI 30.4 BP 146/72 H Blood Pressure Location Lt brachial Position Sitting Respiration 17 Pulse 78 Pulse Source Monitor Temp 97.8 F Temp Source Temporal Pulse Oximetry (%) 97 Oxygen Delivery Method room air Intake Visit Reasons: 6 m fu Chief Complaint: 6 m fu Is patient in pain?: No Allergies amoxicillin (Amoxicillin) Allergy (Verified 07/30/23 10:49) Rash dexamethasone Adverse Reaction (Severe, Verified 07/30/23 10:49) Other adhesive Adverse Reaction (Verified 07/30/23 10:49) Swelling simvastatin Adverse Reaction (Verified 07/30/23 10:49) Pain in joints Medications ???Medication ???Instructions ???Recorded ???Confirmed ???Type aspirin 81 mg tablet,delayed 81 mg PO DAILY 06/03/18 07/30/23 History release (Adult Low Dose Aspirin) docusate sodium 50 mg capsule 50 mg PO DAILY 12/11/18 07/30/23 History (Stool Softener) guaifenesin 1,200 mg tablet, 1,200 mg PO BID PRN Congestion 12/11/18 07/30/23 History extended release 12 hr (Mucinex) vitamin B complex 1 cap PO DAILY 05/17/21 07/30/23 History coenzyme Q10 100 mg capsule (Co 100 mg PO DAILY 08/19/21 07/30/23 History Q-10) turmeric root extract 1,053 mg 1,076 mg PO DAILY 08/19/21 07/30/23 History tablet calcium carbonate (Calcium 600) 600 mg PO BID #90 tabs 07/04/22 07/30/23 Rx cholecalciferol (vitamin D3) 25 1,000 unit PO BID 07/04/22 07/30/23 History mcg (1,000 unit) capsule rosuvastatin 5 mg tablet (Crestor) 5 mg PO WE 08/21/22 07/30/23 History inulin 2 gram chewable tablet 4 g PO DAILY 01/26/23 07/30/23 History (Fiber Gummies) polyethylene glycol 3350 17 4 g PO DAILY 01/26/23 07/30/23 History gram/dose oral powder (Miralax) ezetimibe 10 mg tablet See Rx Instructions .Route 04/09/23 07/30/23 Rx .COMPLEX #90 tabs ascorbate calcium (vitamin C) 500 500 mg PO DAILY 07/30/23 07/30/23 History mg tablet d-mannose 500 mg capsule mg PO 07/30/23 07/30/23 History glucosamine sulfate 1,000 mg 2,000 mg PO DAILY 07/30/23 07/30/23 History capsule PFSH Medical History (Updated 07/30/23 @ 12:[address] Kareem Wood MD) Right knee pain Hematuria COVID-19 Contact with or exposure to viral disease History of hiatal hernia Urinary frequency OAB (overactive bladder) Thickened endometrium Hypertension Health care maintenance Elevated blood pressure reading Wears glasses Thyroid disease Former smoker Shortness of breath on exertion History of stress test Cardiology follow-up encounter Carotid artery stenosis Hyperlipidemia History of carotid artery stenosis Surgical History History of dilation and curettage History of carpal tunnel repair History of adenoidectomy Hx of right cataract extraction Hx of left cataract extraction History of colonoscopy ( 2014) History of tonsillectomy History of laparoscopic cholecystectomy History of right-sided carotid endarterectomy ( 10/31/10) Family History Uncle Colon cancer Mother Diabetes Hypertension High cholesterol CVA (cerebral vascular accident) Thyroid disorder Heart disease Myocardial infarction Sister Diabetes Hypertension High cholesterol Kidney disease CVA (cerebral vascular accident) Grandmother Diabetes Social History Smoking Status: Former smoker alcohol intake: never substance use type: does not use HPI HPI Chief Complaint: 6 m fu Details: KATIE HILLS, is a 77 F who presents to the office today for follow-up of her chronic conditions. Currently following up with Ortho due to right knee pain. Had an MRI which showed moderate pericruciate edema/synovitis with mild strain/tear of the posterior cruciate ligament. She states that she had a steroid injection and has been utilizing the brace. Some improvement but not back to baseline. No recent falls. History of overactive bladder/recurrent UTI. Was seen by urology and started on d-mannose, vitamin C and probiotics which she believes has been helpful. No acute concerns reported in that regard. She would like a repeat urinalysis due to little to no symptoms prior to her UTIs. History of hyperlipidemia on ezetimibe and rosuvastatin once a week. Recent labs reviewed and stable lipid profile. Tolerating medication. Other chronic medical (more content not included)... Normal [facility] Urinalysis, Completeon 07-29 BACTERIA 0 SEEN Normal None Seen [facility] Comment on above: Order Comment: JOEY MCMULLENOR TO SPECIFY Performed By: #### L [id number] #### [facility] [address] [place], [address] EPI,SQUAMOUS 0 SEEN Normal 5-[address] [facility] Comment on above: Order Comment: JOEY MCMULLENOR TO SPECIFY Performed By: #### L 400.0001 #### [facility] [address] [place], [address] Mucus Ql (Urine sed) 0 SEEN Normal [facility] Comment on above: Order Comment: COLLE CTOR TO SPECIFY Performed By: #### L 400.0001 #### [facility] [address] [place], [address] RBC 0 SEEN Normal 0-[address] [facility] Comment on above: Order Comment: COLLE CTOR TO SPECIFY Performed By: #### L 400.0001 #### [facility] [address] [place], [address] WBC 0 SEEN Normal 0-[address] [facility] Comment on above: Order Comment: COLLE CTOR TO SPECIFY Performed By: #### L 400.0001 #### [facility] [address] [place], [place], [address] Cytology report of Body flui d Cyto stainOrdered By: Annette Toro on 11-29-2022 Cytology report Cyto stain Doc (Body fld) SEE PATHOLOGY REPORT [facility] Comment on above: Specimen submitted t o Anatomical Pathology Department for testing. [facility]20[facility] KATIE H[facility] ([id number]) 1945 F Date Time Provider Department 10/26/22 SUSANNE HOLT OBGYWM During your visit today, we recorded the following information about you: Susanne Holt MD 10/26/2022 9:07 AM Signed Spoke to patient this morning- discussed pathology results- Simple hyperplasia w/o atypia from Polypectomy [facility]. Discussed risk of EM cancer <= 1% if no treatment- but reviewed polyps removed. Pt declines progesterone therapy. Decision to repeat ultrasound in 6 months and will follow up after that time. May consider EMB after that. Please assist in scheduling Ultrasound in 6 months. Also please cancel her appt on Sunday. Lizeth Mensah SANTO 10/26/2022 9:31 AM Signed Patient scheduled Allergies As of Date: 10/26/2022 Noted Allergy Reaction ADHESIVE 11/11/2010 14 - Other: See Comments Comments: blisters to area AMOXICILLIN 10/30/2008 2 - Rash CRESTOR (ROSUVASTATIN) 09/03/2020 17 - Myalgia Comments: Muscle aches even on 5 mg dose SIMVASTATIN 06/29/2017 5 - Intolerance Comments: muscle aches, neck pain--debilitating Date Reviewed: 10/06/2022 Reviewed by: Ale Vines Ma - Fully Assessed Primary Visit Diagnosis:Simple endometrial hyperplasia without atypia [N85.01] Other Visit Diagnosis:Endometrial hyperplasia without atypia, simple [N85.01] Order(s):PELVIC US [facility] [[id number]] Order #: [id number]: 1 FUTURE Prescriptions as of 10/26/2022 - oxybutynin XL (DITROPAN XL) 5 mg 24 hr tablet - miSOPROStol (CYTOTEC) 200 mcg tablet Take two tablets PO night before procedure and two tablets morning of procedure - ezetimibe (ZETIA) 10 mg tablet Take 1 tablet by mouth once daily. - rosuvastatin (CRESTOR) 5 mg tablet Take 1 tablet by mouth daily at bedtime. As directed - vitamin B complex (B COMPLEX ORAL) Take 1 capsule by mouth once daily. - Cholecalciferol, Vitamin D3, (VITAMIN D) 1,000 unit cap Take 1,000 Units by mouth once daily. - ubidecarenone/vitamin E mixed (COQ10 SG 100 ORAL) Take by mouth. - GUAIFENESIN SR ORAL Take by mouth as needed. - TURMERIC ORAL Take 1,950 mg by mouth three times daily. Turmeric Curcumin with bioperine - docusate sodium (STOOL SOFTENER) 100 mg ORAL capsule Take 1 capsule by mouth twice daily. - ASPIRIN 81 MG TAB Take one(1) tablet daily. 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] 09/26/2010 11/23/2015 Breast skin changes [R23.4] 01/07/2014 Encounter for screening for malignant neoplasm *11/12/2014 11/23/2015 S/P carotid endarterectomy [Z98.890] 11/29/2015 Neck and shoulder pain [M54.2, M25.519] 11/29/2015 09/21/2017 Plantar fasciitis, bilateral [M72.2] 09/21/2017 Obesity, Class I, BMI 30-34.9 [E66.9] 10/06/2018 Endometrial hyperplasia without atypia, simple *10/26/2022 Encounter Status:Closed by LIZETH MENSAH LPN on 10/26/22 [facility] 10-10-2022 [facility] KATIE HILLS ([id number]) 1945 F Date Time Provider Department 10/10/22 SUSANNE HOLT OBGYWBrooke During your visit today, we recorded the following information about you: Fadumo Hi RN 10/10/2022 8:50 AM Signed ----- Message from Susanne Malone MD sent at 10/10/2022 8:01 AM EDT ----- Notify patient that pathology shows benign EM polyp. Will proceed with Hysteroscopy DANDC polypectomy as scheduled. Fadumo Hi RN 10/10/2022 8:51 AM Signed Left message for patient to call office. Rosmery Weldon RNfer RN 10/10/2022 3:45 PM Signed Patient notified. Martina Sepulveda RN Allergies As of Date: 10/10/2022 Noted Allergy Reaction ADHESIVE 11/11/2010 14 - Other: See Comments Comments: blisters to area AMOXICILLIN 10/30/2008 2 - Rash CRESTOR (ROSUVASTATIN) 09/03/2020 17 - Myalgia Comments: Muscle aches even on 5 mg dose SIMVASTATIN 06/29/2017 5 - Intolerance Comments: muscle aches, neck pain--debilitating Date Reviewed: 10/06/2022 Reviewed by: Ale Vines Ma - Fully Assessed Reason for Visit: Results [95] Prescriptions as of 10/10/2022 - oxybutynin XL (DITROPAN XL) 5 mg 24 hr tablet - miSOPROStol (CYTOTEC) 200 mcg tablet Take two tablets PO night before procedure and two tablets morning of procedure - ezetimibe (ZETIA) 10 mg tablet Take 1 tablet by mouth once daily. - rosuvastatin (CRESTOR) 5 mg tablet Take 1 tablet by mouth daily at bedtime. As directed - vitamin B complex (B COMPLEX ORAL) Take 1 capsule by mouth once daily. - Cholecalciferol, Vitamin D3, (VITAMIN D) 1,000 unit cap Take 1,000 Units by mouth once daily. - ubidecarenone/vitamin E mixed (COQ10 SG 100 ORAL) Take by mouth. - GUAIFENESIN SR ORAL Take by mouth as needed. - TURMERIC ORAL Take 1,950 mg by mouth three times daily. Turmeric Curcumin with bioperine - docusate sodium (STOOL SOFTENER) 100 mg ORAL capsule Take 1 capsule by mouth twice daily. - ASPIRIN 81 MG TAB Take one(1) tablet daily. 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] 09/26/2010 11/23/2015 Breast skin changes [R23.4] 01/07/2014 Encounter for screening for malignant neoplasm *11/12/2014 11/23/2015 S/P carotid endarterectomy [Z98.890] 11/29/2015 Neck and shoulder pain [M54.2, M25.519] 11/29/2015 09/21/2017 Plantar fasciitis, bilateral [M72.2] 09/21/2017 Obesity, Class I, BMI 30-34.9 [E66.9] 10/06/2018 Encounter Status:Closed by MARTINA SEPULVEDA RN on 10/10/22 [facility] CNOVon 10-06-2022 CNOV Office Visit (OBGYWM ) KATIE HLILS ([id number]) 1945 F Date Time Provider Department 10/06/22 9:50 AM SUSANNE HOLT OBGYWM During your visit today, we recorded the following information about you: Blood pressure Weight 118/70 83.9 kg Susanne Holt MD 10/06/2022 10:14 AM Signed Katie Hills presents for hysteroscopy. Indication: Thickened Endometrium on [...] EMERGENT procedures): All specimen containers correctly labeled. Susanne Black MD OBJECTIVE: Cervix cleaned with betadine. [...] follow up EMB PRE OP COMPLETED TODAY MD Mohinder Goyal Ma, [place] 10/06/2022 9:43 AM Signed YOUR RECOVERY After your biopsy you may [...] do not hesitate to contact the office. Susanne Holt MD 10/06/2022 10:14 AM Signed Pre-Op History and Physical HPI: The patient is a 76 year old female with incidental endometrial thickening found on CT scan- ultrasound today shows cystic appearing endometrium measuring 16.6mm. Endosee and EMB performed in in office which showed to large endometrial polyps. presenting for pre-operative visit. She is scheduled for Hysteroscopy DANDC and polypectomy with symphion, for Thickend endometrium [...] SURGICAL HISTORY Procedure Laterality Date ADENOIDECTOMY PRIMARY Adenoidectomy ARTL CATHJ/CANNULJ MNTR/TRANSFUSION SPX PRQ 10-31-10 CHOLECYSTECTOMY 1996 COLONOSCOPY FLX DX W/COLLJ SPEC WHEN PFRMD 03/24/2004 Colonoscopy w/ bx. COLONOSCOPY FLX DX W/COLLJ SPEC WHEN PFRMD 11-17-14 NEUROPLASTY AND/TRANSPOS MEDIAN NRV CARPAL TUNNE 12/13/2010 Carpal tunnel decomp right SKIN BX, 1 LESION 01/22/14 Punch bx right areolar skin TEAEC W/PATCH GRF CAROTID VERTB SUBCLAV NECK INC 10-31-10 (more content not included)... Normal [facility] HISTORY PHYSICALon HISTORY PHYSICAL HNO ID: [id number] Author: Susanne Holt MD Service: ? Author Type: Physician Type: HANDP Filed: 10/06/2022 10:14 AM Note Text: Pre-Op History and Physical HPI: The patient is a 76 year old female with incidental endometrial thickening found on CT scan- ultrasound today shows cystic appearing endometrium measuring 16.6mm. Endosee and EMB performed in in office which showed to large endometrial polyps. presenting for pre-operative visit. She is scheduled for Hysteroscopy DANDC and polypectomy with symphion, for Thickend endometrium [...] SURGICAL HISTORY Procedure Laterality Date ADENOIDECTOMY PRIMARY Adenoidectomy ARTL CATHJ/CANNULJ MNTR/TRANSFUSION SPX PRQ 10-31-10 CHOLECYSTECTOMY 1996 COLONOSCOPY FLX DX W/COLLJ SPEC WHEN PFRMD 03/24/2004 Colonoscopy w/ bx. COLONOSCOPY FLX DX W/COLLJ SPEC WHEN PFRMD 11-17-14 NEUROPLASTY AND/TRANSPOS MEDIAN NRV CARPAL TUNNE 12/13/2010 Carpal tunnel decomp right SKIN BX, 1 LESION 01/22/14 Punch bx right areolar skin TEAEC W/PATCH GRF CAROTID VERTB SUBCLAV NECK INC 10-31-10 RIGHT TONSILLECTOMY PRIMARY/SECONDARY Tonsillectomy Current Outpatient Medications Medication Sig Dispense [...] on hysteroscopy performed in office. PLAN: Hysteroscopy, DANDC, Polypectomy with symphion Pt has been counseled on risks/benefits and alternatives of surgery including but not limited to anesthesia, bleeding, infection, uterine perforation with subsequent injury to pelvic structures including bowel, bladder, ureters and vessels. Pt wishes to proceed with surgery at this time. I have reviewed and updated past medical and surgical history, medications and allergies Susanne Malone MD Normal [facility] SURGICAL PATHOLOGYon 023 CASE REPORT Normal [facility] Comment on above: Order Comment: Speci men Type: TISSUE SPECIMEN Ordering Facility: [facility] Address: [address] [place] [address] Result Comment: Surg ica Pathology Report Case: [id number] Authorizing Provider: Susanne Holt, Collected: 10/06/2022 10:07 AM Ordering Location: OB/Gynecology Received: 10/06/2022 12:37 PM Pathologist: Giovanni Cortez MD Specimen: ENDOMETRIUM BIOPSY Performed By: #### S #### [facility] CLIA [id number] [address] [facility] [place] [address] [place] CLINICAL HISTORY thickened endometriu m, Polyps on hysteroscopy Normal [facility] Comment on above: Order Comment: Speci men Type: TISSUE SPECIMEN Ordering Facility: [facility] Address: [address] [place] [address] Performed By: #### S #### [facility] CLIA [id number] [address] [place], [place] [id number] FINAL DIAGNOSIS Normal [facility] Comment on above: Order Comment: Speci men Type: TISSUE SPECIMEN Ordering Facility: [facility] Address: [address] [place] [address] Result Comment: A. E ndometrium, biopsy: - Benign endometrial polyp. ACMachelle/serge 10/09/2022 Performed By: #### S #### [facility] CLIA [id number] [address] [place] [address] FINAL PERFORMING LAB Normal [facility] Comment on above: Order Comment: Speci men Type: TISSUE SPECIMEN Ordering Facility: [facility] Address: [address] [place] [address] Result Comment: Diag nostic interpretation performed at [facility], [address] [place] [address] CLIA# [id number] Java Developer With Security Clearance: Bart Brannon M.D. Performed By: #### S #### [facility] CLIA [id number] [address] [place] [address] GROSS DESCRIPTION Normal [facility] Comment on above: Order Comment: Speci men Type: TISSUE SPECIMEN Ordering Facility: [facility] Address: [address] [place] [address] Result Comment: A. E NDOMETRIUM BIOPSY Received in formalin are multiple hess-brown, soft feathery segments of tissue admixed with mucinous material aggregating to 2.8 x 1.0 x 0.2 cm. Totally submitted in one cassette. Gross examination performed at [facility], [address] [place] [address]., [place] [id number] KK October 06, 2022 11:51 PM Performed By: #### S #### [facility] CLIA [id number] [address] [place] [address] DESK [id number] [id number] [place] P[place]IC US WHIon 10-05-2022 [facility] CNOVon 10-03-2022 CNOV Office Visit (OBGYWM ) KATIE HILLS ([id number]) 1945 F Date Time Provider Department 10/03/22 10:20 AM SUSANNE HOLT OBGYWM During your visit today, we recorded the following information about you: Blood pressure Weight 118/74 83.9 kg Susanne Holt MD 10/03/2022 11:01 AM Signed Katie Leonor Ritchie is a 76 year old female who [...] primary care physician who recommended follow-up with [facility]. Patient reports she has not seen [facility] in many years. Patient states she has [...] Births0 Comment: Pt also has 7 Grandchildren. [employer] History LMP: Postmenopausal Age at Menarche: Age at First : Age at Menopause: Test [employer] History Comments: Sexual Activity: Yes; Male; Post [...] W/ OR W/O BRS SPEC 11-17-14 INSERT CATH,ART,PERCUT,SHORTTE RM 10-31-10 REMOVAL ADENOIDS,PRIMARY,<12 Y/O Adenoidectomy REMOVAL GALLBLADDER [...] Reviewed CT report from March [address] [facility]. Describes thickening of the endometrium measuring 1.1 m. Discussed findings with the patient reviewed that she has not had vaginal bleeding. Discussed causes of endometrial thickening. Reviewed options today which would be ordering a pelvic ultrasound with follow-up in the office after. Performing an endometrial biopsy. After our discussion t (more content not included)... Normal [facility] Basophil percentageOrdered B y: Kareem Wood on 09-18-2022 Basophil percentage 0 SEEN /hpf 0-5 [facility] Bilirubin Test strip Ql (U)O rdered By: Kareem Wood on 09-18-2022 Bilirubin Ql (U) Negative Negative [facility] Culture, urineOrdered By: Mitzy Wood on 09-18-2022 Bacteria identified Cx Nom (U) Positive [facility] Ketones Test strip Ql (U)Ord ered By: Kareem Wood on 09-18-2022 Ketones Ql (U) Negative Negative [facility] Mucus LM Ql (Urine sed)Order ed By: Kareem Wood on 09-18-2022 Mucus Ql (Urine sed) 0 SEEN /hpf [facility] Nitrite Test strip Ql (U)Ord ered By: Kareem Wood on 09-18-2022 Nitrite Ql (U) Negative Negative [facility] Protein Test strip Ql (U)Ord ered By: Kareem Wood on 09-18-2022 Protein Ql (U) Negative Negative [facility] Squamous epithelial cells de tection in urine sediment by light microscopyOrdered By: Kareem Wood on 09-18-2022 Epithelial cells.squamous LM Ql (Urine sed) 0 SEEN /hpf 5-[address] [facility] Urine blood detectionOrdered By: Kareem Wood on 09-18-2022 RBC Ql (U) Negative Negative [facility] RBC Ql (U) 0-5 SEEN /hpf 0-[address] [facility] Urine clarityOrdered By: Kevin Wood on 09-18-2022 Clarity (U) Sl. Cloudy Clear [facility] Urine color determinationOrd ered By: Kareem Wood on 09-18-2022 Color (U) Yellow Yellow [facility] Urine glucose detectionOrder ed By: Kareem Wood on 09-18-2022 Glucose Ql (U) Normal mg/dl Normal [facility] Urine leukocyte esterase det ection by dipstickOrdered By: Kareem Wood on 09-18-2022 Leukocyte esterase Test strip Ql (U) Negative Negative [facility] Urine pHOrdered By: Renee Wood on 09-18-2022 pH (U) 7.0 [pH] 5.0 - 8.[address] [facility] Urine sediment bacteria coun t by microscopy (number/high power field)Ordered By: Kareem Wood on 09-18-2022 Bacteria LM.HPF (Urine sed) [#/Area] 0 /[HPF] None Seen [facility] Urine specific gravity measu rementOrdered By: Kareem Wood on 09-18-2022 Specific gravity (U) [Rel density] 1.010 1.002-1.[address] [facility] Urobilinogen Auto test strip Ql (U)Ordered By: Kareem Wood on 09-18-2022 Urobilinogen Ql (U) Normal mg/dl Normal [facility] Absolute lymphocyte countOrd ered By: Kareem Wood on 08-23-2022 Lymphocytes Auto (Unsp spec) [#/Vol] 2.20 10*3/uL 0.83-4.[address] [facility] Basophil percentageOrdered B y: Kareem Wood on 08-23-2022 Basophil percentage 10-25 SEEN /hpf 0-[address] [facility] Basophils/100 WBC (Bld) 1.5 % 0-1 [facility] Bilirubin [Mass/Vol] 0.70 mg/dL 0.20-1.00 [facility] Comment on above: For patients on eltr ombopag therapy, use of Dimension [place] TBIL is not recommended. Chloride [Moles/Vol] 104 mmol/L 98-107 [facility] Cholesterol [Mass/Vol] 183 mg/dL <200 [facility] Comment on above: <200 mg/dL Desirable 200-240 mg/dL Borderline >240 mg/dL High Risk Eosinophils/100 WBC (Bld) 1.7 % 0-[address] [facility] Glucose [Mass/Vol] 95 mg/dL 74-106 [facility] Neutrophils (Bld) [#/Vol] 2.4 10*3/uL 2.0-7.[address] [facility] Neutrophils/100 WBC (Bld) 45.3 % 47-[address] [facility] Potassium [Moles/Vol] 3.7 mmol/L 3.5-5.1 [facility] Protein [Mass/Vol] 7.7 g/dL 6.4-8.2 [facility] Sodium [Moles/Vol] 137 mmol/L 136-145 [facility] Triglyceride [Mass/Vol] 104 mg/dL <199 [facility] Comment on above: The drugs N-Acetylcy steine and Metamizole may falsely depress this assay.Serum Triglycerides Reference Interval Normal <150 mg/dL Borderline high 150 - 199 mg/dL High 200 - 499 mg/dL Very High > or = 500 mg/dL WBC (Bld) [#/Vol] 5.2 10*3/uL 4.4-11.0 [facility] Bilirubin Test strip Ql (U)O rdered By: Kareem Wood on 08-23-2022 Bilirubin Ql (U) Negative Negative [facility] Blood erythrocytes count (nu mber/volume)Ordered By: Kareem Wood on 08-23-2022 RBC (Bld) [#/Vol] 4.59 10*6/uL 4.2-5.4 [facility] Blood hemoglobin measurement (mass/volume)Ordered By: Kareem Wood on 08-23-2022 Hemoglobin (Bld) [Mass/Vol] 13.8 g/dL 12.0-15.[address] [facility] Blood lymphocytes/100 leukoc ytesOrdered By: Kareem Wood on 08-23-2022 Lymphocytes/100 WBC (Bld) 42.3 % 19-[address] [facility] Blood monocytes/100 leukocyt esOrdered By: Kareem Wood on 08-23-2022 Monocytes/100 WBC (Bld) 9.0 % 0-10 [facility] Blood platelet mean volumeOr dered By: Kareem Wood on 08-23-2022 Platelet mean volume (Bld) [Entitic vol] 10.3 fL 6.2-12.[address] [facility] Culture, urineOrdered By: Mitzy Wood on 08-23-2022 Bacteria identified Cx Nom (U) Streptococcus agalactiae (B) [facility] Determination of erythrocyte mean corpuscular volume (MCV)Ordered By: Kareem Wood on 08-23-2022 MCV (RBC) [Entitic vol] 89.3 fL 81-99 [facility] Hematocrit Auto (Bld) [Volum e fraction]Ordered By: Kareem Wood on 08-23-2022 Hematocrit (Bld) [Volume fraction] 41.0 % 37-[address] [facility] Ketones Test strip Ql (U)Ord ered By: Kareem Wood on 08-23-2022 Ketones Ql (U) Negative Negative [facility] Laboratory - Chemistry and C hemistry - challengeOrdered By: Kareem Wood on 08-23-2022 ALP [Catalytic activity/Vol] 68 U/L 45-[address] [facility] ALT [Catalytic activity/Vol] 35 U/L 13-[address] [facility] CO2 [Moles/Vol] 28.0 mmol/L 21.0-32.[address] [facility] Globulin (S) [Mass/Vol] 3.8 g/dL 2.2-4.2 [facility] Urea nitrogen/Creatinine [Mass ratio] 13.7 mg/mg 10-[address] [facility] Laboratory - Hematology and Cell countsOrdered By: Kareem Wood on 08-23-2022 Erythrocyte distribution width (RBC) [Entitic vol] 40.9 fL 35.1-43.[address] [facility] Erythrocyte distribution width (RBC) [Ratio] 12.5 % 11.6-14.[address] [facility] Immature granulocytes/100 WBC (Bld) 0.200 % 0.0-0.[address] [facility] Comment on above: IG% - Immature Granu locytes (promyelocytes, myelocytes and metamyelocytes) > 1% indicates that a LEFT SHIFT is Present. MCH (RBC) [Entitic mass] 30.1 pg 27.0-32.[address] [facility] Nucleated RBC/100 WBC (Bld) [Ratio] 0 % 0-[address] [facility] MCHC Auto (RBC) [Mass/Vol]Or dered By: Kareem Wood on 08-23-2022 MCHC (RBC) [Mass/Vol] 33.7 g/dL 32-36 [facility] Mucus LM Ql (Urine sed)Order ed By: Kareem Wood on 08-23-2022 Mucus Ql (Urine sed) 0 SEEN /hpf [facility] Nitrite Test strip Ql (U)Ord ered By: Kareem Wood on 08-23-2022 Nitrite Ql (U) Negative Negative [facility] No Panel InformationOrdered By: Kareem Wood on 08-23-2022 Estimated GFR (MDRD) Amer 80 mL/min >[address] [facility] Comment on above: GFR Calc Estimated GFR (MDRD) Non-Af Amer 66 mL/min >[address] [facility] Comment on above: Non- GFR Calc Vitamin D 25-Hydroxy 36.4 ng/mL [facility] Comment on above: Vitamin D 25(OH) Sta tus Range Deficiency <20 ng/mL (50nmol/L) Insufficiency 20 - 30 ng/mL (50 - 75 nmol/L) Sufficiency 30 - 100 ng/mL (75 - 250 nmol/L) Toxicity >100 ng/mL (>250 nmol/L) Platelets bldOrdered By: Keivn abreu Rianjeannievivian on 08-23-2022 Platelets (Bld) [#/Vol] 230 10*3/uL 150-[address] [facility] Protein Test strip Ql (U)Ord ered By: Alyssiacostajaydon Modijeannievivian on 08-23-2022 Protein Ql (U) Negative Negative [facility] Serum or plasma albumin thea urement (mass/volume)Ordered By: Kareem Wood on 08-23-2022 Albumin [Mass/Vol] 3.9 g/dL 3.2-5.0 [facility] Serum or plasma albumin/glob ulin mass ratioOrdered By: Kareem Wood on 08-23-2022 Albumin/Globulin [Mass ratio] 1.0 {ratio} 0.9-2.[address] [facility] Serum or plasma calcium thea urement (mass/volume)Ordered By: Kareem Wood on 08-23-2022 Calcium [Mass/Vol] 9.7 mg/dL 8.5-10.1 [facility] Serum or plasma cholesterol in HDL measurement (mass/volume)Ordered By: Kareem Wood on 08-23-2022 Cholesterol in HDL [Mass/Vol] 58 mg/dL >[address] [facility] Comment on above: The drugs N-Acetylcy steine and Metamizole may falsely depress this assay. Reference Range HDL <40 mg/dL Low HDL Cholesterol HDL >or= 60 mg/dL High HDL Cholesterol Serum or plasma cholesterol in VLDL measurement (mass/volume)Ordered By: Kareem Wood on 08-23-2022 Cholesterol in VLDL [Mass/Vol] 21 mg/dL 5-[address] [facility] Serum or plasma creatinine m easurement (mass/volume)Ordered By: Kareem Wood on 08-23-2022 Creatinine [Mass/Vol] 0.88 mg/dL 0.55-1.02 [facility] Comment on above: The validity of the calculated GFR & GFRAA in patients over 70 years has not been determined. Clinical correlation is essential. Serum or plasma low density lipoprotein (LDL) cholesterol measurement (mass/volume)Ordered By: Kareem Wood on 08-23-2022 Cholesterol in LDL [Mass/Vol] 104 mg/dL 0-[address] [facility] Serum or plasma urea nitroge n measurement (mass/volume)Ordered By: Kareem Wood on 08-23-2022 Urea nitrogen [Mass/Vol] 12 mg/dL 7-[address] [facility] Squamous epithelial cells de tection in urine sediment by light microscopyOrdered By: Kareem Wood on 08-23-2022 Epithelial cells.squamous LM Ql (Urine sed) 0-5 SEEN /hpf 5-[address] [facility] Thin prep Papanicolaou smear with manual screeningOrdered By: Kareem Wood on 08-23-2022 Thin prep Papanicolaou smear with manual screening 28 U/L 15-[address] [facility] Thin prep Papanicolaou smear with manual screening 5 5-[address] [facility] Urine blood detectionOrdered By: Kareem Wood on 08-23-2022 RBC Ql (U) Negative Negative [facility] RBC Ql (U) 0 SEEN /hpf 0-[address] [facility] Urine clarityOrdered By: Kevin Wood on 08-23-2022 Clarity (U) Sl. Cloudy Clear [facility] Urine color determinationOrd ered By: aKreem Wood on 08-23-2022 Color (U) Yellow Yellow [facility] Urine glucose detectionOrder ed By: Kareem Wood on 08-23-2022 Glucose Ql (U) Normal mg/dl Normal [facility] Urine leukocyte esterase det ection by dipstickOrdered By: Kareem Wood on 08-23-2022 Leukocyte esterase Test strip Ql (U) 100 /ul Negative [facility] Urine pHOrdered By: Renee Wood on 08-23-2022 pH (U) 7.0 [pH] 5.0 - 8.[address] [facility] Urine sediment bacteria coun t by microscopy (number/high power field)Ordered By: Kareem Wood on 08-23-2022 Bacteria LM.HPF (Urine sed) [#/Area] 0 /[HPF] None Seen [facility] Urine specific gravity measu rementOrdered By: Kareem Wood on 08-23-2022 Specific gravity (U) [Rel density] 1.010 1.002-1.[address] [facility] Urobilinogen Auto test strip Ql (U)Ordered By: Kareem Modijeannievivian on 08-23-2022 Urobilinogen Ql (U) Normal mg/dl Normal [facility] Culture, urineOrdered By: Ra adithya Greene on 03-10-2022 Bacteria identified Cx Nom (U) Positive [facility] Absolute lymphocyte countOrd ered By: Viviana Greene on 03-09-2022 Lymphocytes Auto (Unsp spec) [#/Vol] 2.03 10*3/uL 0.83-4.[address] [facility] Basophil percentageOrdered B y: Viviana Greene on 03-09-2022 Basophil percentage 0 SEEN /hpf 0-5 [facility] Basophils/100 WBC (Bld) 1.2 % 0-1 [facility] Bilirubin [Mass/Vol] 0.50 mg/dL 0.20-1.00 [facility] Comment on above: For patients on eltr ombopag therapy, use of Dimension [place] TBIL is not recommended. Chloride [Moles/Vol] 107 mmol/L 98-107 [facility] Eosinophils/100 WBC (Bld) 0.0 % 0-[address] [facility] Glucose [Mass/Vol] 112 mg/dL 74-106 [facility] Comment on above: Fasting Glucose resu lt from 100 to 125 mg/dL suggests IMPAIRED HOMEOSTASIS per A.D.A. criteria. Neutrophils (Bld) [#/Vol] 3.5 10*3/uL 2.0-7.[address] [facility] Neutrophils/100 WBC (Bld) 58.1 % 47-[address] [facility] Potassium [Moles/Vol] 4.0 mmol/L 3.5-5.1 [facility] Protein [Mass/Vol] 7.8 g/dL 6.4-8.2 [facility] Sodium [Moles/Vol] 141 mmol/L 136-145 [facility] WBC (Bld) [#/Vol] 6.0 10*3/uL 4.4-11.0 [facility] Blood erythrocytes count (nu mber/volume)Ordered By: Viviana Greene on 03-09-2022 RBC (Bld) [#/Vol] 4.87 10*6/uL 4.2-5.4 [facility] Blood hemoglobin measurement (mass/volume)Ordered By: Viviana Greene on 03-09-2022 Hemoglobin (Bld) [Mass/Vol] 14.4 g/dL 12.0-15.[address] [facility] Blood lymphocytes/100 leukoc ytesOrdered By: Viviana Greene on 03-09-2022 Lymphocytes/100 WBC (Bld) 33.7 % 19-[address] [facility] Blood monocytes/100 leukocyt esOrdered By: Viviana Greene on 03-09-2022 Monocytes/100 WBC (Bld) 6.8 % 0-10 [facility] Blood platelet mean volumeOr dered By: Viviana Greene on 03-09-2022 Platelet mean volume (Bld) [Entitic vol] 10.0 fL 6.2-12.[address] [facility] Determination of erythrocyte mean corpuscular volume (MCV)Ordered By: Viviana Greene on 03-09-2022 MCV (RBC) [Entitic vol] 86.2 fL 81-99 [facility] Hematocrit Auto (Bld) [Volum e fraction]Ordered By: Viviana Greene on 03-09-2022 Hematocrit (Bld) [Volume fraction] 42.0 % 37-[address] [facility] Laboratory - Chemistry and C hemistry - challengeon 03-09-2022 Glucose Ql (U) Negative [facility] pH (U) 5.0 [pH] [facility] Specific gravity (U) [Rel density] 1.[address] [facility] Urobilinogen (U) [Mass/Vol] Negative [facility] Laboratory - Chemistry and C hemistry - challengeOrdered By: Viviana Greene on 03-09-2022 ALP [Catalytic activity/Vol] 63 U/L 45-[address] [facility] ALT [Catalytic activity/Vol] 44 U/L 13-[address] [facility] CO2 [Moles/Vol] 25.0 mmol/L 21.0-32.[address] [facility] Globulin (S) [Mass/Vol] 3.8 g/dL 2.2-4.2 [facility] Urea nitrogen/Creatinine [Mass ratio] 18.0 mg/mg 10-[address] [facility] Laboratory - Hematology and Cell countson 03-09-2022 Hemoglobin Ql (U) Negative [facility] Laboratory - Hematology and Cell countsOrdered By: Viviana Greene on 03-09-2022 Erythrocyte distribution width (RBC) [Entitic vol] 38.4 fL 35.1-43.[address] [facility] Erythrocyte distribution width (RBC) [Ratio] 12.2 % 11.6-14.[address] [facility] Immature granulocytes/100 WBC (Bld) 0.200 % 0.0-0.[address] [facility] Comment on above: IG% - Immature Granu locytes (promyelocytes, myelocytes and metamyelocytes) > 1% indicates that a LEFT SHIFT is Present. MCH (RBC) [Entitic mass] 29.6 pg 27.0-32.[address] [facility] Nucleated RBC/100 WBC (Bld) [Ratio] 0 % 0-[address] [facility] Laboratory - Specimen inform ationon 03-09-2022 Color (U) Straw [facility] MCHC Auto (RBC) [Mass/Vol]Or dered By: Viviana Greene on 03-09-2022 MCHC (RBC) [Mass/Vol] 34.3 g/dL 32-36 [facility] Mucus LM Ql (Urine sed)Order ed By: Viviana Greene on 03-09-2022 Mucus Ql (Urine sed) 0 SEEN /hpf [facility] Nitrite ur dipstickon 2022 Nitrite Ql (U) Negative Negative [facility] No Panel Informationon 03-09 Urine Leukocytes Negatve [facility] Urine Non-Hemolyzed Blood Negative [facility] No Panel InformationOrdered By: Viviana Greene on 03-09-2022 Estimated GFR (MDRD) Amer 85 mL/min >[address] [facility] Comment on above: GFR Calc Estimated GFR (MDRD) Non-Af Amer 71 mL/min >[address] [facility] Comment on above: Non- GFR Calc Platelets bldOrdered By: Miriam Greene on 03-09-2022 Platelets (Bld) [#/Vol] 244 10*3/uL 150-[address] [facility] Serum or plasma albumin thea urement (mass/volume)Ordered By: Viviana Greene on 03-09-2022 Albumin [Mass/Vol] 4.0 g/dL 3.2-5.0 [facility] Serum or plasma albumin/glob ulin mass ratioOrdered By: Viviana Greene on 03-09-2022 Albumin/Globulin [Mass ratio] 1.1 {ratio} 0.9-2.[address] [facility] Serum or plasma calcium thea urement (mass/volume)Ordered By: Viviana Greene on 03-09-2022 Calcium [Mass/Vol] 9.7 mg/dL 8.5-10.1 [facility] Serum or plasma creatinine m easurement (mass/volume)Ordered By: Viviana Greene on 03-09-2022 Creatinine [Mass/Vol] 0.83 mg/dL 0.55-1.02 [facility] Comment on above: The validity of the calculated GFR & GFRAA in patients over 70 years has not been determined. Clinical correlation is essential. Serum or plasma urea nitroge n measurement (mass/volume)Ordered By: Viviana Greene on 03-09-2022 Urea nitrogen [Mass/Vol] 15 mg/dL 7-[address] [facility] Squamous epithelial cells de tection in urine sediment by light microscopyOrdered By: Viviana Greene on 03-09-2022 Epithelial cells.squamous LM Ql (Urine sed) 0 SEEN /hpf 5-[address] [facility] Thin prep Papanicolaou smear with manual screeningOrdered By: Viviana Greene on 03-09-2022 Thin prep Papanicolaou smear with manual screening 27 U/L 15-[address] [facility] Thin prep Papanicolaou smear with manual screening 9 5-[address] [facility] Urine blood detectionOrdered By: Viviana Greene on 03-09-2022 RBC Ql (U) Negative Negative [facility] RBC Ql (U) 0 SEEN /hpf 0-[address] [facility] Urine clarityon 03-09-2022 Clarity (U) Clear Clear [facility] Urine color determinationOrd ered By: Viviana Greene on 03-09-2022 Color (U) Yellow Yellow [facility] Urine glucose detectionOrder ed By: Viviana Greene on 03-09-2022 Glucose Ql (U) Normal mg/dl Normal [facility] Urine ketones detection by t est stripon 03-09-2022 Ketones Ql (U) Negative Negative [facility] Urine leukocyte esterase det ection by dipstickOrdered By: Viviana Greene on 03-09-2022 Leukocyte esterase Test strip Ql (U) Negative Negative [facility] Urine pHOrdered By: Viviana Greene on 03-09-2022 pH (U) 7.0 [pH] 5.0 - 8.[address] [facility] Urine protein assay by test strip, semi-quantitativeon 03-09-2022 Protein Ql (U) Negative Negative [facility] Urine sediment bacteria coun t by microscopy (number/high power field)Ordered By: Viviana Greene on 03-09-2022 Bacteria LM.HPF (Urine sed) [#/Area] 0 /[HPF] None Seen [facility] Urine specific gravity measu rementOrdered By: Viviana Greene on 03-09-2022 Specific gravity (U) [Rel density] 1.005 1.002-1.[address] [facility] Urine total bilirubin detect ion by test stripon 03-09-2022 Bilirubin Ql (U) Negative Negative 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 This test has been authorized by FDA under an Emergency Use Authorization (EUA). This test has been validated in accordance with the FDA's Guidance Document Policy for Diagnostics Testing in Laboratories Certified to Perform High Complexity Testing under CLIA prior to Emergency use Authorization for Coronavirus Disease 2019 during the Public Health Emergency issued on April 12, 2019. Performed By: [facility] [address] [place] [address] Spout Liner: Bart Brannon III, M.D. 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 CLIA#: [id number] Phone#: Performed By: #### C OVID #### Sabi Franco [address] [place] [address] Date of Onset 20200213 [facility] ([place]) Comment on above: Performed By: #### C OVID #### Sabi Franco [address] [place] [address] Employed in Healthcare No [facility] ([place]) Comment on above: Performed By: #### C OVID #### Sabi Reneville [address] [place], [place] [address] First Test Yes [facility] ([place]) Comment on above: Performed By: #### C OVID #### [place]i [place] [id number] [place], [place] [address] Hospitalized No [facility] ([place]) Comment on above: Performed By: #### C OVID #### Sabi Reneville [address] [place], [place] [address] ICU No [facility] ([place]) Comment on above: Performed By: #### C OVID #### Sabi Reneville [address] [place], [place] [address] Not [facility] ([place]) Comment on above: Performed By: #### C OVID #### Sabi Reneville [address] [place], [place] [address] Resides in Congregate Care Setting No [facility] ([place]) Comment on above: Performed By: #### C OVID #### Sabi [place] [id number] [place], [place] [address] Symptomatic as Defined by CDC Yes Normal [facility] ([place]) Comment on above: Performed By: #### C OVID #### Sabi Saltillo [address] [place], [place] [address] Vital Signs Date Time Vital Sign Value Performing Clinician Nery vasques 07-31-2024 14:08-0400 Body temperature 97.7 [degF] Dr. Kareem Wood MD Work Phone: [facility] 07-31-2024 14:08-0400 Diastolic blood pressure 82 mm[Hg] Dr. Kareem Wood MD Work Phone: [facility] 07-31-2024 14:08-0400 Heart rate 68 /min Dr. Kareem Wood MD Work Phone: [facility] 07-31-2024 14:08-0400 Respiratory rate 16 /min Dr. Kareem Wood MD Work Phone: [facility] 07-31-2024 14:08-0400 SaO2% (BldA) [Mass fraction] 98 % Dr. Kareem Wood MD Work Phone: [facility] 07-31-2024 14:08-0400 Systolic blood pressure 120 mm[Hg] Dr. Kareem Wood MD Work Phone: [facility] 07-19-2024 12:45-0400 Body temperature 97.8 [degF] Dr. Kareem Wood MD Work Phone: [facility] 07-19-2024 12:45-0400 Diastolic blood pressure 80 mm[Hg] Dr. Kareem Wood MD Work Phone: [facility] 07-19-2024 12:45-0400 Heart rate 68 /min Dr. Kareem Wood MD Work Phone: [facility] 07-19-2024 12:45-0400 SaO2% (BldA) [Mass fraction] 98 % Dr. Kareem Wood MD Work Phone: [facility] 07-19-2024 12:45-0400 Systolic blood pressure 122 mm[Hg] Dr. Kareem Wood MD Work Phone: [facility] 06-19-2024 16:41-0400 Body height 171.[address] Kareem Wood MD Work Phone: [facility] 06-19-2024 16:41-0400 Body mass index (BMI) [Ratio] 31 kg/m2 Dr. Kareem Wood MD Work Phone: [facility] 06-19-2024 16:41-0400 Body temperature 97.5 [degF] Dr. Kareem Wood MD Work Phone: [facility] 06-19-2024 16:41-0400 Body weight 91.[address] Kareem Wood MD Work Phone: [facility] 06-19-2024 16:41-0400 Diastolic blood pressure 70 mm[Hg] Dr. Kareem Wood MD Work Phone: [facility] 06-19-2024 16:41-0400 Heart rate 78 /min Dr. Kareem Wood MD Work Phone: [facility] 06-19-2024 16:41-0400 Respiratory rate 16 /min Dr. Kareem Wood MD Work Phone: [facility] 06-19-2024 16:41-0400 SaO2% (BldA) [Mass fraction] 97 % Dr. Kareem Wood MD Work Phone: [facility] 06-19-2024 16:41-0400 Systolic blood pressure 130 mm[Hg] Dr. Kareem Wood MD Work Phone: [facility] 06-02-2024 13:33-0400 Body mass index (BMI) [Ratio] 31.3 kg/m2 Dr. Kareem Wood MD Work Phone: [facility] 06-02-2024 13:33-0400 Body temperature 96.9 [degF] Dr. Kareem Wood MD Work Phone: [facility] 06-02-2024 13:33-0400 Body weight 92.[address] Kareem Wood MD Work Phone: [facility] 06-02-2024 13:33-0400 Diastolic blood pressure 76 mm[Hg] Dr. Kareem Wood MD Work Phone: [facility] 06-02-2024 13:33-0400 Heart rate 62 /min Dr. Kareem Wood MD Work Phone: [facility] 06-02-2024 13:33-0400 Respiratory rate 14 /min Dr. Kareem Wood MD Work Phone: [facility] 06-02-2024 13:33-0400 SaO2% (BldA) [Mass fraction] 97 % Dr. Kareem Wood MD Work Phone: [facility] 06-02-2024 13:33-0400 Systolic blood pressure 142 mm[Hg] Dr. Kareem Wood MD Work Phone: [facility] 01-26-2023 14:51-0500 Body height 170.[address] Kareem Wood Work Phone: [facility] 01-26-2023 14:51-0500 Body mass index (BMI) [Ratio] 29.2 kg/m2 Dr. Kareem Wood Work Phone: [facility] 01-26-2023 14:51-0500 Body temperature 97.7 [degF] Dr. Kareem Wood Work Phone: [facility] 01-26-2023 14:51-0500 Body weight 84.[address] Kareem Wood Work Phone: [facility] 01-26-2023 14:51-0500 Diastolic blood pressure 80 mm[Hg] Dr. Kareem Wood Work Phone: [facility] 01-26-2023 14:51-0500 Heart rate 71 /min Dr. Kareem Wood Work Phone: [facility] 01-26-2023 14:51-0500 Respiratory rate 16 /min Dr. Kareem Wood Work Phone: [facility] 01-26-2023 14:51-0500 SaO2% (BldA) [Mass fraction] 98 % Dr. Kareem Wood Work Phone: [facility] 01-26-2023 14:51-0500 Systolic blood pressure 146 mm[Hg] Dr. Kareem Wood Work Phone: [facility] 11-15-2022 09:37-0400 Body height 170.[address] Kareem Wood Work Phone: [facility] 11-15-2022 09:37-0400 Body mass index (BMI) [Ratio] 28.5 kg/m2 Dr. Kareem Wood Work Phone: [facility] 11-15-2022 09:37-0400 Body temperature 98.5 [degF] Dr. Kareem Wood Work Phone: [facility] 11-15-2022 09:37-0400 Body weight 82.[address] Kareem Wood Work Phone: [facility] 11-15-2022 09:37-0400 Diastolic blood pressure 75 mm[Hg] Dr. Kareem Wood Work Phone: [facility] 11-15-2022 09:37-0400 Heart rate 89 /min Dr. Kareem Wood Work Phone: [facility] 11-15-2022 09:37-0400 Respiratory rate 17 /min Dr. Kareem Wood Work Phone: [facility] 11-15-2022 09:37-0400 SaO2% (BldA) [Mass fraction] 95 % Dr. Kareem Wood Work Phone: [facility] 11-15-2022 09:37-0400 Systolic blood pressure 146 mm[Hg] Dr. Kareem Wood Work Phone: [facility] 10-20-2022 08:00-0400 Body temperature 97.5 [degF] Dr. Kareem Wood Work Phone: [facility] 10-20-2022 08:00-0400 Diastolic blood pressure 54 mm[Hg] Dr. Kareem Wood Work Phone: [facility] 10-20-2022 08:00-0400 Heart rate 50 /min Dr. Kareem Wood Work Phone: [facility] 10-20-2022 08:00-0400 Respiratory rate 12 /min Dr. Kareem Wood Work Phone: [facility] 10-20-2022 08:00-0400 SaO2% (BldA) [Mass fraction] 93 % Dr. Kareem Wood Work Phone: [facility] 10-20-2022 08:00-0400 Systolic blood pressure 127 mm[Hg] Dr. Kareem Wood Work Phone: [facility] 10-20-2022 06:14-0400 Body height 170.[address] Kareem Wood Work Phone: [facility] 10-20-2022 06:14-0400 Body mass index (BMI) [Ratio] 29 kg/m2 Dr. Kareem Wood Work Phone: [facility] 10-20-2022 06:14-0400 Body weight [address] Kareem Wood Work Phone: [facility] 10-06-2022 09:42-0400 Body weight 83.92 kg Susanne Malone MD Work Phone: [facility] 10-06-2022 09:42-0400 Diastolic blood pressure 70 mm[Hg] Susanne Malone MD Work Phone: [facility] 10-06-2022 09:42-0400 Systolic blood pressure 118 mm[Hg] Susanne Malone MD Work Phone: [facility] 10-03-2022 10:11-0400 Body weight 83.92 kg Susanne Malone MD Work Phone: [facility] 10-03-2022 10:11-0400 Diastolic blood pressure 74 mm[Hg] Susanne Malone MD Work Phone: [facility] 10-03-2022 10:11-0400 Systolic blood pressure 118 mm[Hg] Susanne Malone MD Work Phone: [facility] 08-21-2022 10:55-0400 Body height 172.[address] Kareem Wood Work Phone: [facility] 08-21-2022 10:55-0400 Body mass index (BMI) [Ratio] 28.5 kg/m2 Dr. Kareem Wood Work Phone: [facility] 08-21-2022 10:55-0400 Body temperature 98.1 [degF] Dr. Kareem Wood Work Phone: [facility] 08-21-2022 10:55-0400 Body weight 85.[address] Kareem Wood Work Phone: [facility] 08-21-2022 10:55-0400 Diastolic blood pressure 80 mm[Hg] Dr. Kareem Wood Work Phone: [facility] 08-21-2022 10:55-0400 Heart rate 72 /min Dr. Kareem Wood Work Phone: [facility] 08-21-2022 10:55-0400 Respiratory rate 16 /min Dr. Kareem Wood Work Phone: [facility] 08-21-2022 10:55-0400 SaO2% (BldA) [Mass fraction] 97 % Dr. Kareem Wood Work Phone: [facility] 08-21-2022 10:55-0400 Systolic blood pressure 140 mm[Hg] Dr. Kareem Wood Work Phone: [facility] 03-09-2022 10:35-0500 Body height 172.[address] Kareem Wood Work Phone: [facility] 03-09-2022 10:35-0500 Body mass index (BMI) [Ratio] 31.7 kg/m2 Dr. Kareem Wood Work Phone: [facility] 03-09-2022 10:35-0500 Body temperature 97.5 [degF] Dr. Kareem Wood Work Phone: [facility] 03-09-2022 10:35-0500 Body weight 94.[address] Kareem Wood Work Phone: [facility] 03-09-2022 10:35-0500 Diastolic blood pressure 72 mm[Hg] Dr. Kareem Wood Work Phone: [facility] 03-09-2022 10:35-0500 Heart rate 70 /min Dr. Kareem Wood Work Phone: [facility] 03-09-2022 10:35-0500 Respiratory rate 14 /min Dr. Kareem Wood Work Phone: [facility] 03-09-2022 10:35-0500 SaO2% (BldA) [Mass fraction] 97 % Dr. Kareem Wood Work Phone: [facility] 03-09-2022 10:35-0500 Systolic blood pressure 140 mm[Hg] Dr. Kareem Wood Work Phone: [facility] 05-20-2021 07:30-0400 Body temperature 96.8 [degF] Dr. Oscar Servin Work Phone: [facility] Work Phone: 05-20-2021 07:30-0400 Diastolic blood pressure 64 mm[Hg] Dr. Oscar Servin Work Phone: [facility] Work Phone: 05-20-2021 07:30-0400 Heart rate 60 /min Dr. Oscar Servin Work Phone: [facility] Work Phone: 05-20-2021 07:30-0400 Respiratory rate 16 /min Dr. Oscar Servin Work Phone: [facility] Work Phone: 05-20-2021 07:30-0400 SaO2% (BldA) [Mass fraction] 98 % Dr. Oscar Servin Work Phone: [facility] Work Phone: 05-20-2021 07:30-0400 Systolic blood pressure 130 mm[Hg] Dr. Oscar Servin Work Phone: [facility] Work Phone: 05-20-2021 06:04-0400 Body height 172.[address] Oscar Servin Work Phone: [facility] Work Phone: 05-20-2021 06:04-0400 Body mass index (BMI) [Ratio] 31.8 kg/m2 Dr. Oscar Servin Work Phone: [facility] Work Phone: 05-20-2021 06:04-04[address] Body weight [address] Oscar Servin Work Phone: [facility] Work Phone: Encounters Encounter Date Encounter Type Care Provider Facility Start: 07-31-2024 End: 07-31-[address] Kareem Wood MD Work Phone: [facility] Work Phone: Start: 07-31-2024 End: 07-31-2024 Patient encounter procedure El[facility] Krishna [facility] -[facility] Work Phone: Start: 07-21-2024 ambulatory Kareem Grey ty:[facility] Start: 07-21-2024 Non-patient / Non-visit Dr. Rachel youngblood MD -[facility] Start: 07-21-2024 End: 07-21-[address] Kareem Wood MD Work Phone: [facility] Work Phone: Start: 07-21-2024 End: 07-21-[address] Kareem Wood MD -Cardiovascular Services Work Phone: Start: 07-21-2024 End: 07-21-2024 ambulatory Kareem Wood Facility:[facility] Start: 07-19-2024 End: 07-19-2024 Patient encounter procedure Andie SALINAS -[facility] Work Phone: Start: 07-19-2024 End: 07-19-[address] Kareem Wood MD Work Phone: [facility] Work Phone: Start: 07-01-2024 ambulatory Kareem Rousei ty:[facility] Start: 07-01-2024 Non-patient / Non-visit Dr. Ruchi JOSE -[facility] Start: 07-01-2024 End: 07-01-[address] Kareem Wood MD -Cat Scan [facility] Work Phone: Start: 07-01-2024 End: 07-01-2024 ambulatory Efewongbe Oleghe Facility:[facility] Start: 06-19-2024 End: 06-19-[address] Kareem Wood MD -[facility] Work Phone: Start: 06-19-2024 End: 06-19-2024 ambulatory Efewongbe Oleghe Facility:[facility] Start: 06-10-2024 End: 06-10-[address] Kareem Wood MD -Outpatient Bone Densitometry Work Phone: Start: 06-10-2024 End: 06-10-2024 ambulatory Efewongbe Oleghe Facility:[facility] Start: 06-02-2024 End: 06-02-[address] Kareem Wood MD -[facility] Work Phone: Start: 06-02-2024 End: 06-02-2024 ambulatory Efewongbe Oleghe Facility:[facility] Start: 06-02-2024 End: 06-02-2024 ambulatory Efewongbe Oleghe Facility:[facility] Start: 03-07-2024 End: 03-07-2024 ambulatory Efewongbe Oleghe Facility:[facility] Start: 01-31-2024 End: 02-01-2024 ambulatory Efewongbe Oleghe Facility:[facility] Start: 01-31-2024 End: 01-31-2024 ambulatory Efewongbe Oleghe Facility:[facility] Start: 11-02-2023 End: 11-02-2023 ambulatory Efewongbe Oleghe Facility:[facility] Start: 11-02-2023 End: 11-02-2023 ambulatory Efewongbe Oleghe Facility:[facility] Start: 10-04-2023 End: 10-04-2023 ambulatory Efewongbe Oleghe Facility:[facility] Start: 09-27-2023 End: 09-27-2023 ambulatory Kareem Warrene Facility:[facility] Start: 09-26-2023 ambulatory Mary Mitchell [facility] Start: 09-26-2023 End: 09-26-2023 ambulatory Eflonnie Warrene Facility:[facility] Start: 09-18-2023 ambulatory Porter Saldaña Facility:[facility] Start: 09-18-2023 End: 09-18-2023 ambulatory Eflonnie Warrene Facility:[facility] Start: 09-13-2023 End: 09-13-2023 ambulatory Kareem Warrene Facility:[facility] Start: 09-06-2023 End: 09-06-2023 ambulatory Efrichardongjaydon Warrene Facility:[facility] Start: 09-05-2023 End: 09-05-2023 Emergency department patient visit Kareem Wood Facility:[facility] Start: 09-04-2023 End: 09-04-2023 ambulatory Kareem Warrene Facility:[facility] Start: 07-30-2023 End: 07-30-2023 ambulatory Kareem Warrene Facility:[facility] Start: 07-30-2023 End: 07-30-2023 ambulatory Kareem Warrene Facility:[facility] Start: 04-19-2023 Non-patient / Non-visit Dr. Mitzy Wood Work Phone: [facility] Start: 04-19-2023 End: 04-19-[address] Kareem Wood Work Phone: [facility] Work Phone: Start: 04-19-2023 End: 04-19-[address] [facility] Start: 01-26-2023 End: 01-26-[address] Kareem Wood Work Phone: [facility] Internal Medicine Work Phone: Start: 11-29-2022 End: 11-29-[address] Kareem Wood Work Phone: [facility] Work Phone: Start: 11-29-2022 End: 11-29-[address] Kareem Wood Work Phone: [facility]-Laboratory, Specimen Work Phone: Start: 11-15-2022 End: 11-15-[address] Kareem Wood Work Phone: [facility] Work Phone: Start: 10-20-2022 End: 10-20-2022 Admission to same day surgery center Dr. Kareem Wood Work Phone: [facility]-Surgical Day Care Start: 10-20-2022 End: 10-20-[address] Kareem Wood Work Phone: [facility] Work Phone: Start: 10-10-2022 Telephone encounter Susanne Malone MD Work Phone: OB/Gynecology Comment on above: Results Start: 10-06-2022 End: 10-06-2022 ambulatory SUSANNE MALONE Facility:[facility] Start: 10-06-2022 End: 10-06-2022 Patient encounter procedure Susanne Malone MD Work Phone: OB/Gynecology Comment on above: Thickened endometriu m (Primary Dx); Endometrium, polyp Start: 10-05-2022 End: 10-05-2022 ambulatory KAREEM WOOD Facility:[facility] Start: 10-05-2022 End: 10-05-2022 Patient encounter procedure Manager [facility] Work Phone: OB/Gynecology Comment on above: Thickened endometriu m Start: 10-03-2022 End: 10-04-2022 ambulatory KAREEM WOOD Facility:[facility] Start: 10-03-2022 End: 10-03-2022 Patient encounter procedure Susanne Malone MD Work Phone: OB/Gynecology Comment on above: Thickened ryaniu m (Primary Dx) Start: 09-18-2022 End: 09-18-[address] Kareem Wood Work Phone: [facility] Work Phone: Start: 09-18-2022 End: 09-18-[address] Kareem Wood Work Phone: [facility]-Laboratory, Specimen Work Phone: Start: 08-23-2022 End: 08-23-[address] Kareem Wood Work Phone: [facility] Work Phone: Start: 08-23-2022 End: 08-23-[address] Kareem Wood Work Phone: [facility] Start: 08-21-2022 End: 08-21-[address] Kareem Wood Work Phone: [facility] Internal Medicine Work Phone: Start: 07-04-2022 End: 07-04-[address] Kareem Wood Work Phone: [facility] Work Phone: Start: 03-15-2022 End: 03-15-[address] Kareem Wood Work Phone: [facility] Work Phone: Start: 03-15-2022 End: 03-15-[address] Kareem Wood Work Phone: [facility] Start: 03-09-2022 End: 03-09-[address] Kareem Wood Work Phone: [facility] Internal Medicine Start: 08-19-[address] Kareem Wood Work Phone: [facility] Start: 08-07-2021 ambulatory Oscar houston MD Work Phone: [facility] Comment on above: please update my cov id record Start: 06-23-2021 Refill Oscar houston MD Work Phone: [facility] Comment on above: Refill Request Start: 05-20-2021 Non-patient / Non-visit Dr. Mamie Servin Work Phone: [facility] Start: 05-20-2021 End: 05-20-2021 Admission to same day surgery center Dr. Oscar Servin Work Phone: [facility]-Endoscopy Start: 05-18-2021 Non-patient / Non-visit Dr. Mamie Servin Work Phone: [facility] Start: 04-26-2021 End: 04-26-[address] Oscar Servin Work Phone: [facility] Start: 04-14-2021 Non-patient / Non-visit Dr. Mamie Servin Work Phone: [facility] Start: 04-14-2021 End: 04-14-[address] Oscar Servin Work Phone: [facility]-Cardiovascular Services Procedures Date Procedure Procedure Detail Performing Clinician Start: 07-21-[address] Ansley Wood MD Work Phone: Start: 07-01-2024 CT angiography of coronary arteries Dr. Kareem Wood MD Work Phone: Start: 06-10-2024 Dual energy X-ray absorptiometry Dr. Kareem Wood MD Work Phone: Start: 06-02-2024 Vitamin D, 25-hydrox y measurement Dr. Kareem Wood MD Work Phone: Comment on above: Vitamin D StatusDefi ciency: <20 ng/mL (50nmol/L)Insufficiency: 20-30 ng/mL (50-75 nmol/L)Sufficiency: 30-100 ng/mL (75-250 nmol/L)Toxicity: >100 ng/mL (>250 nmol/L) Start: 10-20-2022 Hysteroscopy,D&C Symphion (Not Applicable) Dr. Kareem Wood Work Phone: Start: 10-05-2022 Us pelvic nonobstetr ic real-time image complete Susanne Malone MD Work Phone: Start: 09-18-[address] Ansley Wood Work Phone: Start: 08-23-[address] Ansley Wood Work Phone: Start: 03-15-2022 Computed tomography of abdomen and pelvis with intravenous contrast Dr. Kareem Wood Work Phone: Start: 05-20-[address] Oscar ya Work Phone: Start: 09-02-2020 Adult depression screening assessment Oscar Servin MD Work Phone: Start: 11-29-2015 History of carotid endarterectomy S/P carotid endarterectomy Oscar Servin MD Work Phone: Start: 10-13-2010 History of carotid endarterectomy History of right-sided carotid endarterectomy Dr. Kareem Wood MD Work Phone: History of decompres rere of median nerve History of carpal tunnel repair Dr. Kareem Wood Work Phone: Comment on above: RIGHT Urine culture Dr. Kareem Wood Work Phone: Plan of Treatment Date Care Activity Detail Author Start: 07-31-2024 [facility] Start: 07-31-2024 Bacteria identified in Urine by Culture Urine Culture [facility] Start: 08-25-2023 DIABETES SCREEN DIABETES SCREEN [facility] Start: 10-20-2022 Anes hysteroscopy&/hysterosal pingography w/bx ANESTH HYSTEROSCOPE/GRAPH [facility] Start: 10-20-2022 Hysteroscopy bx endometrium&/polypc w/wo d&c HYSTEROSCOPY BIOPSY [facility] Start: 10-20-2022 Patient discharge [facility] Start: 10-20-2022 Ambulation without limitation [facility] Start: 10-20-2022 Medical regimen orde rs management [facility] Start: 10-20-2022 Medication education [facility] Start: 10-20-2022 Procedure discontinued [facility] Start: 10-20-2022 Taking patient vital signs [facility] Start: 10-20-2022 Vital signs measurements [facility] Start: 10-20-2022 [facility] Start: 10-13-2022 Influenza vaccination INFLUENZA (#1) [facility] Start: 10-03-2022 End: 10-04-2023 PELVIC US WHI PELVIC US WHI Anc Imaging Routine Thickened endometrium Expected: 10/03/2022, Expires: 10/04/2023 [facility] Work Phone: Comment on above: Expected: 10/03/2022 , Expires: 10/04/2023 Start: 08-21-2022 Patient referral [facility] Work Phone: Start: 03-20-2022 COVID-19 VACCINE (6 - Pfizer series) COVID-19 VACCINE (6 - Pfizer series) [facility] Start: 02-12-2022 ADVANCE DIRECTIVE DISCUSSION ADVANCE DIRECTIVE DISCUSSION [facility] Start: 02-12-2022 DEPRESSION ASSESSMENT DEPRESSION ASS ESSMENT [facility] Start: 09-03-2021 SHINGRIX VACCINE (1 of 2) SHINGRIX VACCINE (1 of 2) [facility] Comment on above: Postponed from 12/19 (Declined at this time) Start: 09-03-2021 Urine microalbumin profile DTAP,TDAP,TD (2 - Tdap) [facility] Comment on above: Postponed from 10/27 (Declined at this time) Start: 09-02-2021 Adult depression screening assessment DEPRESSION SCREENING [facility] Start: 08-12-2021 End: 10-12-2021 CBC panel - Blood by Automated count CBC Lab Routine Encounter for long-term current use of medication Expected: 08/12/2021 (Approximate), Expires: 10/12/2021 [facility] Work Phone: Comment on above: Expected: 08/12/2021 (Approximate), Expires: 10/12/2021 Start: 08-12-2021 End: 10-12-2021 Comprehensive metabolic 2000 panel - Serum or Plasma COMP METABOLIC PANEL Lab Routine Encounter for long-term current use of medication Expected: 08/12/2021 (Approximate), Expires: 10/12/2021 [facility] Work Phone: Comment on above: Expected: 08/12/2021 (Approximate), Expires: 10/12/2021 Start: 04-19-2021 COVID-19 VACCINE (4 - Booster for Pfizer series) COVID-19 VACCINE (4 - Booster for Pfizer series) [facility] Start: 02-12-2021 ADVANCE DIRECTIVE DISCUSSION ADVANCE DIRECTIVE DISCUSSION [facility] Start: 10-27-2014 Urine microalbumin profile DTAP,TDAP,TD (2 - Tdap) [facility] Start: 1994 SHINGRIX VACCINE (1 of 2) SHINGRIX VACCINE (1 of 2) [facility] Endometrial bx w/wo endocervix bx w/o dilat spx ENDOMETRIAL BIOPSY Procedures Routine Thickened endometrium Ordered: 10/03/2022 [facility] Work Phone: Comment on above: Ordered: 10/03/2022 Endometrial bx w/wo endocervix bx w/o dilat spx ENDOMETRIAL BIOPSY Procedures Routine Thickened endometrium Endometrium, polyp Ordered: 10/06/2022 [facility] Work Phone: Comment on above: Ordered: 10/06/2022 OFFICE HYSTEROSCOPY OFFICE HYSTE ROSCOPY Procedures Routine Thickened endometrium Ordered: 10/03/2022 [facility] Work Phone: Comment on above: Ordered: 10/03/2022 Patient referral [facility] Work Phone: SURGICAL PATHOLOGY SURGICAL PATH OLOGY Lab Routine Thickened endometrium Endometrium, polyp 10/06/2022 10:07 AM EDT [facility] Work Phone: Urine culture [facility] Immunizations Immunization Date Immunization Notes Care Provider Fa cility 11-17-2021 Covid Pfizer Bivalen t Booster Dr. Kareem Wood Work Phone: [facility] 11-04-2021 influenza, injectable,quadrivalent, preservative free, pediatric Dr. Kareem Wood Work Phone: [facility] 07-04-2021 COVID-19 vaccine, ag e 12+ yr (PFIZER-BIONTECH - PURPLE TOP) Oscar Servin MD Work Phone: [facility] 12-20-2020 Covid (Pfizer) Dr. Kareem Wood Work Phone: [facility] 12-20-2020 COVID-19 vaccine, ag e 12+ yr (PFIZER-BIONTECH - CARTER TOP) Oscar Servin MD Work Phone: [facility] 11-03-2020 influenza, high-dose , quadrivalent vaccine (FLUZONE HIGH DOSE QUADRIVALENT) Oscar Servin MD Work Phone: [facility] 05-06-2020 Covid (Pfizer) Dr. Oscar funk Work Phone: [facility] 04-15-2020 Covid (Pfizer) Dr. Oscar funk Work Phone: [facility] 12-05-2017 influenza, high dose seasonal, preservative-free Oscar Servin MD Work Phone: [facility] 09-21-2017 pneumococcal polysaccharide vaccine, 23 valent Oscar Servin MD Work Phone: [facility] 11-25-2016 influenza, high dose seasonal, preservative-free Oscar Servin MD Work Phone: [facility] 03-09-2015 pneumococcal conjuga te vaccine, 13 valent Oscar Servin MD Work Phone: [facility] 12-08-2014 influenza, seasonal, injectable Oscar Servin MD Work Phone: [facility] Work Phone: 11-10-2013 influenza, seasonal, injectable Oscar Servin MD Work Phone: [facility] 11-12-2012 influenza virus vacc ine, unspecified formulation Oscar Servin MD Work Phone: [facility] 10-27-2004 diphtheria and tetan us toxoids, adsorbed for pediatric use Oscar Servin MD Work Phone: [facility] Work Phone: Payers Date Payer Category Payer Self-pay [id number] 2023 Unknown [id number] 2019 Unknown [id number] 2019 Unknown [id number] 2019 Unknown MMO MMO MEDICARE SUPPLEMENT [id number] 2019-Present [phone] [address] [place] [address] Indemnity [id number] 2009 Medicare [id number] 2009 Medicare MEDICARE MEDICAR E A AND B [id number] 2009-Present [phone] [place] [id number] Medicare [id number] 2009 Medicare MEDICARE MEDICAR E A AND B [id number] 2009-Present [phone] [place] [address] Medicare [id number] Unknown [id number] [id number]2 Unknown [id number] 2.16.840.1.126678.3.579.2.462 Unknown [id number] 2.16.840.1.706032.3.579.2.462 Unknown [id number] 2.16.840.1.949518.3.579.2.462 Unknown [id number] 2.16.840.1.965810.3.579.2.462 Unknown [id number] 2.16.840.1.760870.3.579.2.462 Unknown [id number] 2.16.840.1.806759.3.579.2.462 Unknown [id number] 2.16.840.1.986071.3.579.2.462 Unknown [id number] 2.16.840.1.246959.3.579.2.462 Unknown [id number] 2.16.840.1.477086.3.579.2.462 Unknown [id number] 2.16.840.1.472789.3.579.2.462 Unknown [id number] 2.16.840.1.781965.3.579.2.462 Unknown [id number] 2.16.840.1.792337.3.579.2.462 Unknown [id number] 2.16.840.1.245075.3.579.2.462 Unknown [id number] 2.16.840.1.489518.3.579.2.462 Unknown [id number] 2.16.840.1.063849.3.579.2.462 Unknown [id number] 2.16.840.1.136315.3.579.2.462 Unknown [id number] 2.16.840.1.357432.3.579.2.462 Unknown [id number] 2.16.840.1.577052.3.579.2.462 Unknown [id number] 2.16.840.1.933782.3.579.2.462 Unknown [id number] 2.16.840.1.911725.3.579.2.462 Unknown [id number] 2.16.840.1.357832.3.579.2.462 Unknown [id number] 2.16.840.1.974319.3.579.2.462 Unknown [id number] 2.16.840.1.399219.3.579.2.462 Unknown [id number] 2.16.840.1.277981.3.579.2.462 Unknown [id number] 2.16.840.1.160750.3.579.2.462 Unknown [id number] 2.16.840.1.785072.3.579.2.462 Social History Date Type Detail Facility [facility] Work Phone: Start: 05-17-2021 End: 01-26-2023 Tobacco smoking status COIS Unknown if ever smoked [facility] Start: 1945 Sex Assigned At Female W [facility] Start: 10-03-2022 End: 09-05-2023 Tobacco smoking status NHIS Ex-smoker [facility] End: 02-13-2012 History of tobacco use Current smoker [facility] End: 02-13-2012 History of tobacco use Cigarette Smoker [facility] Start: 09-03-2020 End: 10-06-2022 Alcohol intake Current non-drinker of alcohol (finding) [facility] Start: 09-02-2020 History SDOH Alcohol Frequency 1 [facility] Start: 09-02-2020 History SDOH Alcohol Std Drinks 98 [facility] Start: 09-02-2020 History SDOH Social Connections Phone 5 [facility] Start: 09-02-2020 History SDOH Social Connections Membership 2 [facility] Start: 09-02-2020 History SDOH Social Connections Living 3 [facility] Start: 09-02-2020 History SDOH Physica l Activity DPW 4 [facility] Start: 09-02-2020 History SDOH Physica l Activity MPS 6 [facility] Start: 09-02-2020 Education 12 [facility] Start: 02-21-2012 End: 10-03-2022 Tobacco Comment 02/2012 started e-cigarette [facility] Start: 1945 Sex Assigned At Not on file [facility] Start: 10-03-2022 Tobacco use and exposure Smoke less tobacco non-user [facility] Start: 09-02-2020 End: 10-03-2022 History of Social function [facility] Start: 09-02-2020 End: 10-03-2022 Social connection and isolation panel [facility] Do you belong to any clubs or organizations such as judaism groups, unions, fraternal or athletic groups, or school groups? No [facility] Are you now , , , , never or living with a partner? [facility] How often to you hav e a drink containing alcohol? Never [facility] How many standard dr inks containing alcohol do you have on a typical day? Patient refused [facility] Do you feel stress - tense, restless, nervous, or anxious, or unable to sleep at night because your mind is troubled all the time - these days [OSQ] Not at all [facility] (I/We) worried whecristhian er (my/our) food would run out before (I/we) got money to buy more. Never true [facility] NEGATED: Highlighted row [facility] Medical Equipment Procedure Code Equipment Code Equipment Origin al Text Equipment Identifier Dates Colonoscopy RESOLUTION 360 C LIP 235 CM FDA Start: 05-20-2021 Colonoscopy RESOLUTION 360 C LIP 235 CM FDA Start: 05-20-2021 Colonoscopy RESOLUTION 360 C LIP 235 CM FDA Start: 05-20-2021 Colonoscopy RESOLUTION 360 C LIP 235 CM FDA Start: 05-20-2021 Colonoscopy RESOLUTION 360 C LIP 235 CM FDA Start: 05-20-2021 Colonoscopy RESOLUTION 360 C LIP 235 CM FDA Start: 05-20-2021 Colonoscopy RESOLUTION 360 C LIP 235 CM FDA Start: 05-20-2021 Colonoscopy RESOLUTION 360 C LIP 235 CM FDA Start: 05-20-2021 Colonoscopy RESOLUTION 360 C LIP 235 CM FDA Start: 05-20-2021 Goals Date Patient Goal Desired Activity /State Mental Status Date Assessment Result Facility 10-20-2022 Cognitive function Voice/Name [facility] Work Phone: 05-20-2021 Cognitive function Voice/Name [facility] Work Phone: Clinical Notes 11-29-2015 to 06-02-2024 Note Date & Type Note Facility 06-02-2024 Evaluation note Diagnosis Onset Date Resolution Osteopenia acute June 02 1:22pm Hypertension chronic June 02, 2024 1:22pm Mixed hyperlipidemia chronic Apri l 2024 1:22pm JUNIOR (obstructive sleep apnea) chronic June 02, 2024 1:22pm Osteopenia with high risk of fracture acute June 19, 2024 4 :28pm Vitamin D insufficiency acute M 2024 4:28pm [facility] Work Phone: 1(197) 897-8866722524-14-3022 Evaluation note* Diagnosis Onset Date Resolution Status Admit Date Osteopenia acute June 02 1:22pm Hypertension chronic June 02, 2024 1:22pm Mixed hyperlipidemia chronic Apri l 2024 1:22pm JUNIOR (obstructive sleep apnea) chroni c June 02, 2024 1:22pm Osteopenia with high risk of fracture acute June 19, 2024 4: 28pm Vitamin D insufficiency acute M ay 2024 4:28pm Acute cystitis with hematuria acute July 19, 2024 12:35pm [facility] Work Phone: 1(304) 321-532209-08-2023 Procedure [facility] 10-10-2022 Miscellaneous Notes* Telephone Encounter - Martina Sepulveda RN - 10/10/2022 3:44 PM EDT Patient notified. Martina Sepulveda RN * Telephone Encounter - Fadumo Hi RN - 10/10/2022 8:50 AM EDT Left message for patient to call office. Fadumo Hi RN * Telephone Encounter - Fadumo Hi RN - 10/10/2022 8:50 AM EDT ----- Message from Susanne Malone MD sent at 10/10/2022 8:01 AM EDT ----- Notify patient that pathology shows benign EM polyp. Will proceed with Hysteroscopy D&C polypectomy as scheduled. documented in this encounterOhio State Health System08-25-2023 NoteHNO ID: [id number] Author: Susanne Holt MD Service: ? Author Type: Physician Type: Progress Notes Filed: 10/06/2022 10:14 AM Note Text: Katie Hills presents for hysteroscopy. Indication: Thickened Endometrium on [...] EMERGENT procedures): All specimen containers correctly labeled. Susanne Black MD OBJECTIVE: Cervix cleaned with betadine. [...] follow up EMB PRE OP COMPLETED TODAY Susanne Black [facility]08-25-2023 History and physical note* Susanne Holt MD - 10/06/2022 10:11 AM EDT Pre-Op History and Physical HPI: The patient is a 76 year old female with incidental endometrial thickening found on CT scan- ultrasound today shows cystic appearing endometrium measuring 16.6mm. Endosee and EMB performed in [facility] which showed to large endometrial polyps. presenting [...] medical and surgical history, medications and allergies Susanne Malone MD documented in this encounterOhio State Health System08-25-2023 Instructions* Patient Instructions* Ale Vines Ma - 10/06/2022 9:43 AM [...] well as have some bleeding after the procedure.There is also a risk of infection after [...] do not hear the results of your biopsyafter 2 weeks, please contact the office for the results. If you have any additional questions or concerns please do not hesitate to contact the office. documented in this encounterOhio State Health System08-25-2023 History of Present illness Narrative* Susanne Holt MD - 10/06/2022 9:42 AM EDT Katie Hills presents for hysteroscopy. Indication: Thickened Endometrium on [...] EMERGENT procedures): All specimen containers correctly labeled. Susanne Black MD OBJECTIVE: Cervix cleaned with betadine. A single tooth tenaculum was used to grasp cervix. Cervix was dilated. Under sterile conditions, using 60 mL normal saline as distention, ENDOSEE hysteroscopyperformed without incident. No endocervical lesions seen. Endometrial lining is atrophic. Endometrial polyp x2. Endometrial biopsy performed. PROCEDURE SUMMARY: Patient tolerated procedure well. ASSESMENT: Endometrial thickening with polyp lesions on hysteroscopy. PLAN: Hysteroscopic polypectomy, D&C in the OR and follow up EMB PRE OP COMPLETED TODAY Susanne Black MD documented in this encounterOhio State Health System08-22-2023 NoteHNO ID: [id number] Author: Susanne Holt MD Service: ? Author Type: Physician Type: Progress Notes Filed: 10/03/2022 11:01 AM Note Text: Katie Hills is a 76 year old female who [...] primary care physician who recommended follow-up with [facility]. Patient reports she has not seen [facility] in many years. Patient states she has [...] Births0 Comment: Pt also has 7 Grandchildren. [employer] History LMP: Postmenopausal Age at Menarche: Age at First : Age at Menopause: [employer] History Comments: Sexual Activity: Yes; Male; Post [...] Procedure Laterality Date COLONOSCOP W/ OR W/O [facility] SPEC 03/24/2004 Colonoscopy w/ bx. COLONOSCOP W/ OR W/O [facility] SPEC 11-17-14 INSERT CATH,ART,PERCUT,SHORTTERM 10-31-10 REMOVAL ADENOIDS,PRIMARY,<12 [...] Reviewed CT report from March [address] [facility]. Describes thickening of the endometrium measuring 1.1 [...] be performed. All questi (more content not included)...[facility]08-22-2023 History of Present illness Narrative* Susanne Hotl MD - 10/03/2022 10:09 AM EDT Katie Hills is a 76 year old female who [...] primary care physician who recommended follow-up with [facility]. Patient reports she has not seen [facility] in many years. Patient states she has not had any vaginal bleeding since going through menopause many years ago. Patient denies any abnormal discharge. She reports she has not had pelvic ultrasound performed. Patient offers no otherconcerns at this time. Patient denies a history of uterine fibroids or polyps. She denies any surgery on her uterus or cervix. OB History T3 L3 SAB0 IAB0 Ectopic0 Multiple0 Live Births0 Comment: Pt also has 7 Grandchildren. [employer] History LMP: Postmenopausal Age at Menarche: Age at First : Age at Menopause: [employer] History Comments: Sexual Activity: Yes; Male; Post [...] Procedure Laterality Date COLONOSCOP W/ OR W/O [facility] SPEC 03/24/2004 Colonoscopy w/ bx. COLONOSCOP W/ OR W/O [facility] SPEC 11-17-14 INSERT CATH,ART,PERCUT,SHORTTERM 10-31-10 REMOVAL ADENOIDS,PRIMARY,<12 [...] Reviewed CT report from March [address] [facility]. Describes thickening of theendometrium measuring 1.1 m. Discussed findings with the patient reviewed that she has not had vaginal bleeding. Discussed causes of endometrial thickening. Reviewed options today which would be ordering a pelvic ultrasound with follow-up in the office after. Performing an endometrial biopsy. Afterour discussion today patient would like to get a pelvic ultrasound and then based on those findingspossibly proceed with an in office Endo see with endometrial biopsy if indicated. Cytotec was ordered in case biopsy needs to be performed. All questions were answered today to the best of my ability. Patient was comfortable with the plan. CT scan reviewed from [facility] and notes from primary care were reviewed. Medical Decision Making: Problems: Moderate: New problem with uncertain prognosis Data: Unique source(s) for external note(s) reviewed: 1 Unique test result(s) reviewed: 1 Unique test(s) ordered: 3+ Risk: Moderate: Drug management Medical Decision Making Level: 4 - Moderate Susanne Black MD documented in this encounterOhio State Health System06-27-2022 Miscellaneous Notes* Telephone Encounter - Colette Ramírez Ma - 08/08/2021 9:52 AM EDT Chart updated documented in this encounterOhio State Health System05-19-2022 Miscellaneous Notes* Telephone Encounter - Acacia Oreilly LPN - 06/30/2021 11:33 AM EDT Patient notified of providers message and verbalized understanding. * Telephone Encounter - Oscar Servin MD - 06/29/2021 7:24 PM EDT Already had lipids in April. Filed CBC and CMP so can get done prior to appointment * Telephone Encounter - Colette Ramírez Ma - 06/29/2021 11:08 AM EDT Patient scheduled with Dipika Snyder, please advise if labs needed before * Telephone Encounter - Oscar Servin MD - 06/27/2021 8:09 AM EDT Needs follow up appointment--last seen August 2020 The following approved medication requests have been transmitted electronically. Signed Prescriptions Disp Refills ezetimibe (ZETIA) 10 mg tablet 90 tablet 1 Sig: Take 1 tablet by mouth once daily. SARAH: No Authorizing Provider: OSCAR SERVIN MD * Telephone Encounter - Jane Taylor LPN - 06/27/2021 8:01 AM EDT Patient has been identified by name and [...] you. Jane Taylor LPN documented in this encounterOhio State Health System10-17-2016 History of Past illness Narrative* Problem Noted [...] of this encounter (statuses as of 06/30/2021) [facility] of Past illness Narrative* Problem Noted [...] of this encounter (statuses as of 08/08/2021) [facility] of Past illness Narrative* Problem Noted [...] of this encounter (statuses as of 10/03/2022) [facility] of Past illness Narrative* Problem Noted [...] of this encounter (statuses as of 10/06/2022) [facility] of Past illness Narrative* Problem Noted [...] of this encounter (statuses as of 10/06/2022) [facility] of Past illness Narrative* Problem Noted [...] of this encounter (statuses as of 10/11/2022) [facility] Diagnosis Onset Date Resolution Status Carotid artery stenosis acut e [facility] Work Phone: Evaluation note* Diagnosis Encounter for long-term current use of medication- Primary documented [facility] this encounter [facility]* Diagnosis Onset Date Resolution Status Right lower quadrant abdominal pain noneactive Dysuria noneactive Right flank pain noneactive [facility] Work Phone: Evaluation note* Diagnosis Onset Date Resolution Status Acute sinusitis acute Thickened endometrium acute Hypertension chronic Mixed hyperlipidemia chronic OAB (overactive bladder) [facility] Work Phone: Evaluation note* Diagnosis Thickened endometrium- Primary Nonspecific (abnormal) findings on radiological and other examination of genitourinary organs documented [facility] this encounter [facility]* Diagnosis Thickened endometrium- Primary Nonspecific (abnormal) findings on radiological and other examination of genitourinary organs Endometrium, polyp Polyp of corpus uteri documented in this encounter [facility]* Diagnosis Thickened endometrium Nonspecific (abnormal) findings on radiological and other examination of genitourinary organs documented [facility] this encounter [facility] Diagnosis Onset Date Resolution Status Thickened endometrium acute Hypertension chronic Mixed hyperlipidemia chronic OAB (overactive bladder) [facility] Work Phone: Evaluation note* Diagnosis Onset Date Resolution Status Hematuria acute Thickened endometrium acute Hypertension chronic Mixed hyperlipidemia chronic OAB (overactive bladder) [facility] Work Phone: History and physical note Author Brooke savage [facility] October 20, 2022 7:22am Note Date/Time October 20, 2022 7:22am [facility] Medical Records Department [address] [place] [address] H&P Exam - SIGN MAINTENANCE 10/20/22717 MR#: [id number] Acct: [id number] Name: KATIE HILLS Rep #:[id number] : 1945 76 From: Susanne Malone MD PCP: Dr. Kareem Wood MD Status:R [facility] Location: [place] [address] History and Physical Date of Admission: 10/20/22 Pre-Op History and Physical ? HPI: The patient is a 76 year old female with incidental endometrial thickening found on CT scan- ultrasound today shows cystic appearing endometrium measuring 16.6mm. Endosee and EMB performed in in office which showed to large endometrialpolyps. ? presenting for pre-operative visit. She is scheduled for Hysteroscopy D&C and polypectomy with symphion, for Thickend endometrium and Endometrial polyp on TBD. Procedure discussed along with risks, benefits and complications. Other alternatives discussed for management. Consent form signed? Yes. ? ? PAST MEDICAL HISTORY PAST MEDICAL HISTORY Diagnosis Date ? Carotid occlusion, right 09/26/2010 ? s/p CEA by Dr. Prema Hayes ? Mixed hyperlipidemia 10/27/2004 ? Neck and shoulder pain 11/29/2015 ? Since right CEA; intermittent with some numbness ? Personal history of colonic polyps 10/27/2004 ? Colonoscopy - 24 March 2004 ? Personal history of tobacco use, presenting hazards to health 01/25/2005 ? Plantar fasciitis, right 09/21/2017 ? Pure hypercholesterolemia ? ? Snoring ? ? ? PAST SURGICAL HISTORY PAST SURGICAL HISTORY Procedure Laterality Date ? ADENOIDECTOMY PRIMARY <AGE 12 ? ? ? Adenoidectomy ? ARTL CATHJ/CANNULJ MNTR/TRANSFUSION SPX PRQ ? 10-31-10 ? CHOLECYSTECTOMY ? 1996 ? COLONOSCOPY FLX DX W/COLLJ SPEC WHEN PFRMD ? 03/24/2004 ? Colonoscopy w/ bx. ? COLONOSCOPY FLX DX W/COLLJ SPEC WHEN PFRMD ? 11-17-14 ? NEUROPLASTY &/TRANSPOS MEDIAN NRV CARPAL TUNNE ? 12/13/2010 ? Carpal tunnel decomp right ? SKIN BX, 1 LESION ? 01/22/14 ? Punch bx right areolar skin ? TEAEC W/PATCH GRF CAROTID VERTB SUBCLAV NECK INC ? 10-31-10 ? RIGHT ? TONSILLECTOMY PRIMARY/SECONDARY <AGE 12 ? ? ? Tonsillectomy ? ? ? CURRENT MEDICATIONS Current Outpatient Medications Medication Sig Dispense Refill ? oxybutynin XL (DITROPAN XL) 5 mg 24 hr tablet ? miSOPROStol (CYTOTEC) 200 mcg tablet Take two tablets PO night before procedure and two tablets morning of procedure 4 tablet 0 ? ezetimibe (ZETIA) 10 mg tablet Take 1 tablet by mouth once daily. 90 tablet 1 ? rosuvastatin (CRESTOR) 5 mg tablet Take 1 tablet by mouth daily at bedtime. As directed 30 tablet 0 ? vitamin B complex (B COMPLEX ORAL) Take 1 capsule by mouth once daily. ? ? ? Cholecalciferol, Vitamin D3, (VITAMIN D) 1,000 unit cap Take 1,000 Units by mouth once daily. ? ? ? ubidecarenone/vitamin E mixed (COQ10 SG 100 ORAL) Take by mouth. ? ? ? GUAIFENESIN SR ORAL Take by mouth as needed. ? ? ? TURMERIC ORAL Take 1,950 mg by mouth three times daily. Turmeric Curcumin with bioperine ? docusate sodium (STOOL SOFTENER) 100 mg ORAL capsule Take 1 capsule by mouth twice daily. ? 0 ? ASPIRIN 81 MG TAB Take one(1) tablet daily. ? 0 ? No current facility-administered medications for this visit. ? ? ALLERGIES: Adhesive, Amoxicillin, Crestor [Rosuvastatin], and Simvastatin ? PERSONAL HISTORY: SOCIAL HISTORY Social History ? Tobacco Use ? Smoking status: Former ? ? Years: 30 ? ? Types: Cigarettes ? ? Quit date: 02/13/2012 ? ? Years since quittin.6 ? Smokeless tobacco: Never ? Tobacco comments: ? ? 02/2012 started e-cigarette Substance Use Topics ? Alcohol use: No ? Drug use: No ? FAMILY HISTORY: FAMILY HISTORY FAMILY HISTORY Problem Relation Age of Onset ? Diabetes Mother ? ? Hypertension Mother ? ? Lipids Mother ? ? Heart Mother ? ? Stroke Sister ? ? Hypertension Sister ? ? Diabetes Sister ? ? Lipids Sister ? ? other (Kidney Stones) Sister ? ? ? REVIEW OF SYMPTOMS: negative except as noted above PHYSICAL EXAMINATION: ? VITALS: Blood pressure 118/70, weight 185 lb (83.9 kg). ? GENERAL: The patient is well nourished, well hydrated in no acute distress. , The patient is oriented to time, place, and person. NECK: full range of motion GENITALIA: Normal external genitalia, Urethral meatus normal, Bladder nontender, normal vagina and normal vaginal tone, normal cervix, and perineum WNL WET PREP: no done ? IMPRESSION: 76yo with Thickened endometrium, Endometrial polyps on hysteroscopy performed in office. ? PLAN: Hysteroscopy, D&C, Polypectomy with symphion ? Pt has been counseled on risks/benefits and alternatives of surgery including but not limited to anesthesia, bleeding, infection, uterine perforation with subsequent injury to pelvic structures including bowel, bladder, ureters and vessels. Pt wishes to proceed with surgery at this time. ? I have reviewed and updated past medical and surgical history, medications and allergies Susanne Malone MD 10/20/22721 <Electronically signed by Susanne Black MD> Cosigner Signature (if applicable): CC: Brooke Black; Dr. Kareem Wood MD~ Signed ADDENDUM by M Dr. Susanne Black on 10/20/22 at 0722 Addendum I have examined the patient and the H&P has been reviewed. There are no clinical changes since date of exam. 10/20/22721<Electronically signed by Susanne Black MD> Cosigner Signature (if applicable): cc: Brooke Black; Dr. Kareem Wood MD ~* Signed [facility] Work Phone: Reason for referral (narrative)* Outpatient Procedure (Routine) - Pending Review Specialty Diagnoses / Procedures Referred By Geneva t Referred To Contact [facility] Diagnoses Thickened endometrium Procedures OFFICE HYSTEROSCOPY HYSTEROSCOPY BX ENDOMETRIUM&/POLYPC W/WO D&C Susanne Holt MD [address] [place] [address] [address] Referral ID Status Reason Start Date Expiration Date Visits Requested Visits Authorized [id number] Pending Review Auto-Generat ed Referral 10/03/2022 10/03/2023 1 1 * Outpatient Procedure (Routine) - Pending Review Specialty Diagnoses / Procedures Referred By Geneva t Referred To Contact [facility] Diagnoses Thickened endometrium Procedures ENDOMETRIAL BIOPSY ENDOMETRIAL BX W/WO ENDOCERVIX BX W/O DILAT SPX Susanne Holt MD [address] [place] [address] [facility] [address] [place] [id number] Referral ID Status Reason Start Date Expiration Date Visits Requested Visits Authorized [id number] Pending Review Auto-Generat ed Referral 10/03/2022 10/03/2023 1 1 * Diagnostic Procedure Only (Routine) - Authorized Specialty Diagnoses / Procedures Referred By Geneva leon Referred To Contact [facility] Diagnoses Thickened endometrium Procedures PELVIC US WHI US PELVIC NONOBSTETRIC REAL-TIME IMAGE COMPLETE Susanne Holt MD [address] [place] [address] [facility] [address] [place] [id number] Referral ID Status Reason Start Date Expiration Date Visits Requested Visits Authorized [id number] Authorized Auto-Generat ed Referral 10/03/2022 10/03/2023 1 1 [facility] for referral (narrative)* Outpatient Procedure (Routine) - Pending Review Specialty Diagnoses / Procedures Referred By Geneva leon Referred To Contact [facility] Diagnoses Thickened endometrium Endometrium, polyp Procedures ENDOMETRIAL BIOPSY ENDOMETRIAL BX W/WO ENDOCERVIX BX W/O DILAT SPX Susanne Holt MD [address] [place] [address] [facility] [address] [place] [address] Referral ID Status Reason Start Date Expiration Date Visits Requested Visits Authorized [id number] Pending Review Auto-Generat ed Referral 10/06/2022 10/06/2023 1 1 [facility] for referral (narrative)No reason for referral information availableEthan [facility] Services Work Phone: Summary Purpose Family History Relationship Condition Age at Onset Recorded Date/T elvie Not Specified Myocardial infarction Unknown uncle Malignant neoplasm of colon Unknown mother Diabetes mellitus Unknown Hypertension Unknown High blood cholesterol Unknown Cerebrovascular accident (CVA) Unknown Disorder of thyroid Unknown Relationship Condition Age at Onset Recorded Date/T elvie uncle Malignant neoplasm of colon Unknown mother Diabetes mellitus Unknown Hypertension Unknown High blood cholesterol Unknown Cerebrovascular accident (CVA) Unknown Disorder of thyroid Unknown Cardiac disease Unknown Myocardial infarction Unknown sister Diabetes mellitus Unknown Kidney disorder Unknown grandmother Diabetes mellitus Unknown Advance Directives Advance Directive Response Recorded Date/ Time Living Will No May 17, 2021 12:17pm Power of Funeral Home Manager No May 17 2 12:17pm Advance Directive Response Recorded Date/ Time Living Will No August 03, 2021 10:10am Power of Funeral Home Manager No August 03 2 10:10am Advance Directive Response Recorded Date/ Time Living Will No August 03, 2021 11:10am Power of Funeral Home Manager No August 03 11:10am Advance Directive Response Recorded Date/ Time Living Will No October 11 3 12:45pm Power of Funeral Home Manager No October 11 023 12:45pm Chief Complaint and Reason for Visit Chief Complaint HX OF CAROTID ENDART ERECTOMY CAROTID Amb Documentation Reason for Visit Carotid artery steno sis Chief Complaint possible kidney infe ction RLQ PAIN Reason for Visit Right lower quadrant abdominal pain Dysuria Right flank pain Chief Complaint CONCRN FOR SINUS INF ECTION YEARLY Reason for Visit Acute sinusitis Thickened endometrium Hypertension Mixed hyperlipidemia OAB (overactive bladder) Chief Complaint CONCRN FOR SINUS INF ECTION YEARLY Hysteroscopy,D&C Symphion Reason for Visit Acute sinusitis Thickened endometrium Hypertension Mixed hyperlipidemia OAB (overactive bladder) Chief Complaint YEARLY Hysteroscopy,D&C Symphion LARYNGITIS/COLD SYMPTOMS Reason for Visit Thickened endometriu m Hypertension Mixed hyperlipidemia OAB (overactive bladder) Chief Complaint Follow up RLE SWELLING Reason for Visit Hematuria Thickened endometrium Hypertension Mixed hyperlipidemia OAB (overactive bladder) Chief Complaint Admit Date 4 M FU June 02, 2024 1:2 2pm Post menopausal June 10, 2024 10: 01am discuss bone density June 19, 2024 4:28p m Cardiac risk assesement July 01, 2024 2 :42pm Cardiac risk assesement July 01, 2024 5 :02pm CONCERN FOR UTI July 19, 2024 12:35 pm Reason for Visit Admit Date Osteopenia June 02, 2024 1:2 2pm Hypertension June 02, 2024 1:2 2pm Mixed hyperlipidemia June 02, 2024 1: 22pm JUNIOR (obstructive sleep apnea) May 1:22pm Osteopenia with high risk of fracture Ma y 2024 4:28pm Vitamin D insufficiency June 19, 2024 4: 28pm Chief Complaint Admit Date 4 M FU June 02, 2024 1:2 2pm Post menopausal June 10, 2024 10: 01am discuss bone density June 19, 2024 4:28p m Cardiac risk assesement July 01, 2024 2 :42pm Cardiac risk assesement July 01, 2024 5 :02pm CONCERN FOR UTI July 19, 2024 12:35 pm CHEST PAIN INT LAB ORDER July 21, 2024 9:48am CHEST PAIN July 21, 2024 10:51 am Reason for Visit Admit Date Osteopenia June 02, 2024 1:2 2pm Hypertension June 02, 2024 1:2 2pm Mixed hyperlipidemia June 02, 2024 1: 22pm JUNIOR (obstructive sleep apnea) May 1:22pm Osteopenia with high risk of fracture Ma y 8th, 2025 4:28pm Vitamin D insufficiency June 19, 2024 4: 28pm Acute cystitis with hematuria July 19, 2024 12:35pm Chief Complaint Admit Date 4 M FU June 02, 2024 1:2 2pm Post menopausal June 10, 2024 10: 01am discuss bone density June 19, 2024 4:28p m Cardiac risk assesement July 01, 2024 2 :42pm Cardiac risk assesement July 01, 2024 5 :02pm CONCERN FOR UTI July 19, 2024 12:35 pm CHEST PAIN INT LAB ORDER July 21, 2024 9:48am CHEST PAIN July 21, 2024 10:51 am CONCERN FOR UTI July 31, 2024 2:09 pm Additional Source Comments INFORMATION SOURCE (unrecogn ized section and content) DATE CREATED AUTHOR 02/21/2020 [facility] ([place]) DATE CREATED AUTHOR AUTHOR'S ORGANIZ ATION 10/28/2022 [facility] DATE CREATED AUTHOR AUTHOR'S ORGANIZ ATION 07/25/2024 [place] [facility] y [facility] Goals (unrecognized section and content) Goals may be documented in a n alternate sectionGoals may be documented in an alternate sectionGoals may be documented in an alternate sectionGoals may be documented in an alternate sectionGoals may be documented in an alternate sectionGoals may be documented in an alternate sectionGoals may be documented in an alternate sectionGoals may be documented in an alternate section Source Comments (unrecognize d section and content) In the event this informatio n is protected by the Federal Confidentiality of Alcohol and Drug Abuse Patient Records regulations: The Federal rules restrict any use of the information to criminally investigate or prosecute any alcohol or drug abuse patient.[facility] System[facility] the event this information is protected by the Federal Confidentiality of Alcohol and Drug Abuse Patient Records regulations: The Federal rules restrict any use of the information to criminally investigate or prosecute any alcohol or drug abuse patient.[facility] SystemIn the event this information is protected by the Federal Confidentiality of Alcohol and Drug Abuse Patient Records regulations: The Federal rules restrict any use of the information to criminally investigate or prosecute any alcohol or drug abuse patient.[facility] System[facility] the event this information is protected by the Federal Confidentiality of Alcohol and Drug Abuse Patient Records regulations: The Federal rules restrict any use of the information to criminally investigate or prosecute any alcohol or drug abuse patient.[facility] SystemIn the event this information is protected by the Federal Confidentiality of Alcohol and Drug Abuse Patient Records regulations: The Federal rules restrict any use of the information to criminally investigate or prosecute any alcohol or drug abuse patient.[facility] SystemIn the event this information is protected by the Federal Confidentiality of Alcohol and Drug Abuse Patient Records regulations: The Federal rules restrict any use of the information to criminally investigate or prosecute any alcohol or drug abuse patient.[facility] Reason for Visit (unrecogniz ed section and content) Reason Onset Date Comments Refill Request 06/23/2021 Reason Comments Consult Reason Comments Endometrial Biopsy Reason Comments Other Thickened endometriu m Specialty Diagnoses / Procedures Referred By Contac t Referred To Contact [facility] Diagnoses Thickened endometrium Procedures PELVIC US WHI US PELVIC NONOBSTETRIC REAL-TIME IMAGE COMPLETE Susanne Holt MD [address] [place] [address] [facility] [address] [place] [address] Referral ID Status Reason Start Date Expiration Date V isits Requested Visits Authorized [id number] Closed Auto-Generate d Referral 10/03/2022 10/03/2023 1 1 Reason Comments Results Care Teams (unrecognized sec tion and content) [facility] Nurse Relationship Specialty Start Date End Date Oscar Servin MD [address], [place] [id number] PCP - General Internal Medicine 11/23/15 Icu Nurse Relationship Specialty Start Date End Date Oscar Servin MD [address], [place] [id number] PCP - General Internal Medicine 11/23/15 Team Status: Active Member Role Status Dates Dr. Rylie Dunlap MD Family Provider Active Dr. Kareem Wood MD Primary Care Provider Active Team Status: Inactive Member Role Status Dates Dr. Kareem Wood MD Primary Care Provider, Refer [facility] Provider Active DANNIELLE Champagne Attending Provider Active Team Status: Inactive Member Role Status Dates Dr. Kareem Wood MD Primary Care Provider Active DANNIELLE Champagne Attending Provider, Referring Pro vider Active Team Status: Inactive Member Role Status Dates Dr. Kareem Wood MD Primary Care P patrick, Attending Provider, Referring Provider Active Team Status: Inactive Member Role Status Dates Dr. Kareem Wood MD Primary Care Provider, Refer ring Provider Active Elvin SPICER, PA Attending Provider Active Team Status: Inactive Member Role Status Dates Dr. Kareem Wood MD Primary Care Provider, Atten ding Provider Active [facility] Nurse Relationship Specialty Start Date End Date Kareem Wood MD [address] [place] [address] PCP - General Internal Medicine 08/20/21 Icu Nurse Relationship Specialty Start Date End Date Kareem Wood MD [address] [place] [address] PCP - General Internal Medicine 08/20/21 Icu Nurse Relationship Specialty Start Date End Date Kareem Wood MD [address] [place] [address] PCP - General Internal Medicine 08/20/21 Team Status: Inactive Member Role Status Dates Dr. Kareem Wood MD Primary Care Provider Active Dr. Susanne Black MD Attending Provider, R eferring Provider Active Team Status: Inactive Member Role Status Dates Dr. Kareem Wood MD Primary Care Provider, Refer ring Provider Active Walker SPICER, PA Attending Provider Active Team Status: Inactive Member Role Status Dates Dr. Kareem Wood MD Primary Care Provider Active Dr. Annette Toro MD Attending Provider Active Team Status: Active Member Role Status Dates Dr. Kareem Wood MD Primary Care Provider Active Dr. Mateo Hayes MD Attending Provider Active Dr. Walker Gaston MD Referring Provider Active Team Status: Inactive Member Role Status Dates Dr. Kareem Wood MD Primary Care Provider Active Dr. Walker Gaston MD Attending Provider, Referring Jade nguyen Active Team Status: Active Member Role Status Dates Dr. Kareem Wood MD Primary Care Provider Active Team Status: Inactive Member Role Status Dates Dr. Kareem Wood MD Primary Care Provider Active Start: June 02, 2024 End: June 02, 2024 Dr. Kareem Wood MD Attending Provider Active Start: June 02, 2024 End: June 02, 2024 Dr. Kareem Wood MD Referring Provider Active Start: June 02, 2024 End: June 02, 2024 Team Status: Inactive Member Role Status Dates Dr. Kareem Wood MD Primary Care Provider Active Start: June 10, 2024 End: June 10, 2024 Dr. Kareem Wood MD Attending Provider Active Start: June 10, 2024 End: June 10, 2024 Dr. Kareem Wood MD Referring Provider Active Start: June 10, 2024 End: June 10, 2024 Team Status: Inactive Member Role Status Dates Dr. Kareem Wood MD Attending Provider Active Start: June 19, 2024 End: June 19, 2024 Dr. Kareem Wood MD Referring Provider Active Start: June 19, 2024 End: June 19, 2024 Team Status: Inactive Member Role Status Dates Dr. Kareem Wood MD Primary Care Provider Active Start: July 01, 2024 End: July 01, 2024 Dr. Kareem Wood MD Attending Provider Active Start: July 01, 2024 End: July 01, 2024 Dr. Kareem Wood MD Referring Provider Active Start: July 01, 2024 End: July 01, 2024 Team Status: Active Member Role Status Dates Dr. Kareem Wood MD Primary Care Provider Active Start: July 01, 2024 Dr. Kareem Wood MD Referring Provider Active Start: July 01, 2024 Dr. Kareem Wood MD Other Provider Active Start: July 01, 2024 Dr. Rhys Pop MD Attending Provider Active S tart: July 01, 2024 Team Status: Inactive Member Role Status Dates Dr. Kareem Wood MD Primary Care Provider Active Start: July 19, 2024 End: July 19, 2024 Dr. Kareem Wood MD Referring Provider Active Start: July 19, 2024 End: July 19, 2024 RITA Webster Attending Provider Active Start: July 19, 2024 End: July 19, 2024 Team Status: Inactive Member Role Status Dates Dr. Kareem Wood MD Primary Care Provider Active Start: July 21, 2024 End: July 21, 2024 Dr. Kareem Wood MD Attending Provider Active Start: July 21, 2024 End: July 21, 2024 Dr. Kareem Wood MD Referring Provider Active Start: July 21, 2024 End: July 21, 2024 Team Status: Active Member Role Status Dates Dr. Kareem Wood MD Primary Care Provider Active Start: July 21, 2024 Dr. Kareem Wood MD Referring Provider Active Start: July 21, 2024 Dr. Kareem Wood MD Other Provider Active Start: July 21, 2024 Dr. Rachel Atkins MD Attending Provider Active Start: July 21, 2024 Team Status: Inactive Member Role Status Dates Dr. Kareem Wood MD Primary Care Provider Active Start: July 31, 2024 End: July 31, 2024 Dr. Kareem Wood MD Referring Provider Active Start: July 31, 2024 End: July 31, 2024 DANNIELLE Garcia Attending Provider Active Sta rt: July 31, 2024 End: July 31, 2024 Team Status: Active Member Role Status Dates Dr. Kareem Wood MD Primary Care Provider Active Start: July 31, 2024 DANNIELLE Garcia Attending Provider Active Sta rt: July 31, 2024 FOR RECORDS PERTAINING TO PATIENTS WHO ARE [...] BE BASED ON THE PRIMARY CLINICAL RECORDS. [facility] [employer] [facility]. provides no warranty or guarantee of the accuracy or completeness of information in this document.
== END | disposition home or self-care (01) ==
LOC: LABSPEC 14:34
PROVIDERS: PCP Internal Medicine; Visit Provider Physician Assistant Surgical
DX: R30.0 Dysuria (principal)
CPT/HCPCS: 87077; 87086; 87088

== ENCOUNTER → 2024-09-12 | Outpatient (CLI) | payer MEDICARE, OTHER, SELFPAY ==
--- NOTE | 2024-09-12 12:56 | CDU_ITS ---
Reason For Study Reason For Study: s/p Rt CEA Rt. Velocities/BP Lt. Velocities/BP Prox CCA 83/15 cm/sec. Prox CCA 101/15 cm/sec. Mid CCA 73/15 cm/sec. Mid CCA 93/16 cm/sec. Dist CCA 66/16 cm/sec. Dist CCA 77/14 cm/sec. Prox ICA 61/13 cm/sec. Prox ICA 138/25 cm/sec. Mid ICA 72/20 cm/sec. Mid ICA 147/27 cm/sec. Dist ICA 93/28 cm/sec. Dist ICA 92/19 cm/sec. Rt. ICA/CCA = 1.1. Lt. ICA/CCA = 1.9. Prox ECA 117/10 cm/sec. Prox ECA 80/8 cm/sec. Rt. Vert. 48/9 cm/sec. Lt. Vert. 86/19 cm/sec. Right Extracranial There is heterogeneous, irregular atherosclerotic plaque noted in the right common carotid artery. There is heterogeneous, irregular atherosclerotic plaque noted in the right internal carotid artery. There is intimal thickening but no significant atherosclerotic plaque noted in the right external carotid artery. Bidirectional flow noted Rt Vert A. Left Extracranial There is heterogeneous, irregular atherosclerotic plaque noted in the left common carotid artery. There is heterogeneous, irregular atherosclerotic plaque noted in the left internal carotid artery. There is intimal thickening but no significant atherosclerotic plaque noted in the left external carotid artery. Antegrade flow is noted in the left vertebral artery. Procedure Carotid Duplex [id number]. This is a Carotid Duplex examination using B-mode, color flow and specral Doppler. Exam performed in department. VL/Carotid Duplex Ultrasound Interpretation Summary Mild (<50%) stenosis right extracranial internal carotid. Moderate (50-69%) stenosis left extracranial internal carotid. The Right vertebral flow is bidirectional. The Left vertebral is patent and antegrade. Ordering Physician: Cindy Gardiner Referring Physician: Maryjane Wood Performed By: Tawana Lopez, IMELDA, RVT
== END | disposition home or self-care (01) ==
LOC: CVS 12:56
PROVIDERS: PCP Internal Medicine; Referring Provider Physician Assistant; Visit Provider Physician Assistant
DX: Z48.812 Encounter for surgical aftercare following surgery on the circulatory system (principal); Z98.890 Other specified postprocedural states
CPT/HCPCS: 93880